=== PATIENT | female | born 1965 | race African-American/Black ===

== ENCOUNTER 2018-02-25 11:54 | Emergency (ER) | payer SELFPAY ==
[~2018-02-25] VITALS: Ht 162.6 cm; Wt 83.0 kg
[2018-02-25 12:03] VITALS: BP 151/80
--- NOTE | 2018-02-25 12:20 | PHYS DOC ---
Past Medical History Past Medical History: Arthritis, COPD, Hypertension Past Surgical History: Hysterectomy Additional Past Surgical Histo: hernia x 2, addenoidectomy Alcohol Use: Occasionally Drug Use: None Adult General Chief Complaint Chief Complaint: COUGH HPI HPI Patient is a 52 year old female who presents with copd flare. Patient is known to have COPD. She continues to use tobacco. Today, she complains of a 5-7 day history of productive cough with yellow sputum. She has had some worsening shortness of breath over the same time. No chest pain. Patient states she has previously had similar symptoms when she was diagnosed with influenza and subsequently pneumonia. No nausea or vomiting. The cough does keep her awake at night. No abdominal pain. Review of Systems Review of Systems Constitutional: Denies fever but + chills Eyes: Denies change in visual acuity HENT: Denies nasal congestion or sore throat Respiratory: cough and dyspnea as above Cardiovascular: No additional information GI: Denies abdominal pain : Denies dysuria Musculoskeletal: Denies back pain Integument: Denies rash Neurologic: Denies headache All other systems were reviewed and found to be within normal limits, except as documented in this note. Current Medications Current Medications Current Medications Medications (Trade) Dose Ordered Sig/Fifi Start Time Stop Time Status Last Admin Dose Admin Acetaminophen/ Hydrocodone Bitart (Lortab 5/325) 2 tab 1X ONCE 02/25/18 12:30 02/25/18 12:31 DC 02/25/18 12:23 2 TAB Albuterol/ Ipratropium (Duoneb) 3 ml 1X ONCE 02/25/18 12:30 02/25/18 12:31 DC 02/25/18 12:35 3 ML Azithromycin (Zithromax) 500 mg 1X ONCE 02/25/18 12:30 02/25/18 12:31 DC 02/25/18 12:26 500 MG Prednisone (Prednisone) 50 mg 1X ONCE 02/25/18 12:30 02/25/18 12:31 DC 02/25/18 12:22 50 MG Allergies Allergies Allergies Coded Allergies Type Severity Reaction Last Updated Verified NSAIDS (Non-Steroidal Anti-Inflamma Allergy Mild stomach ache 02/25/18 Yes egg Allergy Mild vomiting 02/25/18 Yes Physical Exam Physical Exam Constitutional: Well developed, well nourished, no acute distress, non-toxic appearance HENT: Normocephalic, atraumatic, bilateral external ears normal, oropharynx moist Eyes: PERRLA Neck: Normal range of motion, no tenderness Cardiovascular:Heart rate regular rhythm, no murmur Lungs & Thorax: faint wheezes bilaterally with prolonged exp phase and diminished air movt Skin: Warm, dry, no erythema Extremities: No edema Neurologic: Alert and oriented X 3 Psychologic: Affect normal Current Patient Data Vital Signs Vital Signs Date Time Temp Pulse Resp B/P (MAP) Pulse Ox O2 Delivery O2 Flow Rate FiO2 02/25/18 12:38 Room Air 02/25/18 12:23 16 96 02/25/18 12:03 97.8 84 151/80 (103) 97.8 EKG EKG [] Radiology/Procedures Radiology/Procedures [] Course & Med Decision Making Course & Med Decision Making Pertinent Labs and Imaging studies reviewed. (See chart for details) 12:15: Patient is seen and examined. She is clinically having a COPD flare. Lung sounds as documented above. Orders are placed for prednisone, and [place] for pain, azithromycin, and breathing treatment. Patient is seen in the ER for COPD symptoms and URI symptoms. She was initially wheezing. She had a breathing treatment in the ER which did improve her wheezes. She feels subjectively better. Patient will be discharged home with a short course of prednisone, azithromycin, and some albuterol nebulized solution treatments. She is advised to take her albuterol every 3-4 hours while awake over the next 48 hours. Patient is accompanied by family members who are driving her home. All of her questions are answered prior to discharge home. Dragon Disclaimer Dragon Disclaimer This electronic medical record was generated, in whole or in part, using a voice recognition dictation system. Departure Departure Referrals: NO PCP (PCP) Scripts Prednisone (PREDNISONE) 50 Mg Tablet 1 TAB PO DAILY, #5 TAB Prov: SHEY PARISH DO 02/25/18 Hydrocodone/Apap 5-325 (NORCO 5-325 TABLET) 1 Each Tablet 1-2 EACH PO PRN Q6HRS PRN for severe pain, #20 as needed for pain Prov: SHEY PARISH DO 02/25/18 Azithromycin (AZITHROMYCIN TABLET) 250 Mg Tablet 250 MG PO DAILY for ANTI-BIOTIC for 4 Days, #4 TAB 0 Refills Prov: SHEY PARISH DO 02/25/18 Albuterol Sulfate (ALBUTEROL SULFATE NEB SOLN) 2.5 Mg/3 Ml Vial.neb 1 VIAL NEB PRN Q4HRS, #50 VIAL Prov: SHEY PARISH DO 02/25/18 SHEY PARISH DO Feb 25, 2018 12:20
[2018-02-25] MEDS ORDERED: predniSONE 10 MG TABLET PO ONE (12:30)
[2018-02-25] MEDS ORDERED: AZITHROMYCIN 250 MG TABLET. PO ONE (12:30)
[2018-02-25] MEDS ORDERED: IPRATRPIUM/ALBUTEROL 0.5/2.5MG 3 ML NEBU. NEB ONE (12:30)
[2018-02-25] MEDS ORDERED: HYDROcodone/APAP 5/325MG 1 TAB TABLET PO ONE (12:30)
[2018-02-25] MEDS ORDERED: HYDR-971 PO (13:29)
[2018-02-25] MEDS ORDERED: AZIT250T6 PO (13:29)
[2018-02-25] MEDS ORDERED: ALBU2.5V5 NEB (13:29)
[2018-02-25] MEDS ORDERED: PRED50TA PO (13:29)
== END 2018-02-25 13:36 | disposition home or self-care (01) ==
LOC: ER 11:54
DX: J44.1 Chronic obstructive pulmonary disease with (acute) exacerbation (principal); M19.90 Unspecified osteoarthritis, unspecified site; I10 Essential (primary) hypertension; Z72.0 Tobacco use; Z90.710 Acquired absence of both cervix and uterus; Z88.8 Allergy status to other drugs, medicaments and biological substances; Z91.012 Allergy to eggs
CPT/HCPCS: 94640; 99284; J7512; J7620; Q0144

== ENCOUNTER 2018-03-31 18:24 | Emergency (ER) | payer SELFPAY ==
[~2018-03-31] VITALS: Ht 162.6 cm; Wt 83.0 kg
[~2018-03-31 18:24] MED LIST: ALBU2.5V5 NEB; AZIT250T6 PO; HYDR-3164 PO; OXYC1TAB15 PO; PRED50TA PO; TAMS0.4C97 PO
[2018-03-31 19:12] LABS: BILIRUBIN,URINE NEGATIVE (NEG); CLARITY,URINE CLEAR; COLOR,URINE YELLOW; NITRITE,URINE NEGATIVE (NEG); PH,URINE 5.5; PROTEIN,URINE NEGATIVE (NEG-TRACE); UROBILINOGEN,URINE 0.2 mg/dL (0.2 mg/dL)
--- NOTE | 2018-03-31 19:14 | PHYS DOC ---
Past Medical History Past Medical History: Arthritis, COPD, Hypertension, Kidney Stone, Other Additional Past Medical Histor: SPINAL STENOSIS Past Surgical History: Hysterectomy Additional Past Surgical Histo: hernia x 2, addenoidectomy Additional Information: 0.5 PPD Alcohol Use: Occasionally Drug Use: None Adult General Chief Complaint Chief Complaint: FLANK PAIN [facility] Patient is a 52 year old female who presents for evaluation of left flank pain which radiates into her left groin. The patient was seen in the ED on 03/23/18 for flank pain and was diagnosed with a 2mm ureteral stone in the left distal ureter. She was discharged to home with Flomax and Percocet. Additionally, she was instructed to follow up with urology, but due to some insurance issues was unable to set an appointment with them. The patient reports she has been monitoring her urine but has not yet passed the stone. She reports intermittent pain since her previous visit in the ED, with persistent pain over the past 2 days which seems to be worsening and prompted her current ED visit. She has finished her Percocet and has attempted Tylenol without much relief. She reports an allergy to NSAIDs as they cause her stomach problems. She endorses recent foul smelling urine, dysuria, and nausea, but denies fevers, chills, vomiting, hematuria and pyuria. No other Sx or complaints at this time Review of Systems Review of Systems Constitutional: Denies fever or chills [] Eyes: Denies change in visual acuity, redness, or eye pain [] HENT: Denies nasal congestion or sore throat [] Respiratory: Denies cough or shortness of breath [] Cardiovascular: No additional information not addressed in [facility] [] GI: + nausea, Denies abdominal pain, vomiting, bloody stools or diarrhea [] : + foul smelling urine and dysuria. + flank pain. + left suprapubic pain. Denies hematuria and pyuria Musculoskeletal: Denies back pain or joint pain [] Integument: Denies rash or skin lesions [] Neurologic: Denies headache, focal weakness or sensory changes [] Endocrine: Denies polyuria or polydipsia [] All other systems were reviewed and found to be within normal limits, except as documented in this note. Current Medications Current Medications Current Medications Medications (Trade) Dose Ordered Sig/Fifi Start Time Stop Time Status Last Admin Dose Admin Morphine Sulfate (Morphine Sulfate) 4 mg 1X ONCE 03/31/18 19:15 03/31/18 19:16 DC 03/31/18 19:40 4 MG Ondansetron HCl (Zofran) 4 mg 1X ONCE 03/31/18 19:15 03/31/18 19:16 DC 03/31/18 19:40 4 MG Allergies Allergies Allergies Coded Allergies Type Severity Reaction Last Updated Verified NSAIDS (Non-Steroidal Anti-Inflamma Allergy Mild stomach ache 02/25/18 Yes egg Allergy Mild vomiting 02/25/18 Yes Physical Exam Physical Exam Constitutional: Well developed, well nourished, no acute distress, non-toxic appearance. [] HENT: Normocephalic, atraumatic, bilateral external ears normal, oropharynx moist, no oral exudates, nose normal. [] Eyes: PERRLA, EOMI, conjunctiva normal, no discharge. [] Neck: Normal range of motion, no tenderness, supple, no stridor. [] Cardiovascular:Heart rate regular rhythm, no murmur [] Lungs & Thorax: Bilateral breath sounds clear to auscultation [] Abdomen: Bowel sounds normal, soft, no tenderness, no masses, no pulsatile masses. [] Skin: Warm, dry, no erythema, no rash. [] Back: The patient has CVA tenderness on the left with a positive Loyds punch. Extremities: No tenderness, no cyanosis, no clubbing, ROM intact, no edema. [] Neurologic: Alert and oriented X 3, normal motor function, normal sensory function, no focal deficits noted. [] Psychologic: Affect normal, judgement normal, mood normal. [] Current Patient Data Vital Signs Vital Signs Date Time Temp Pulse Resp B/P (MAP) Pulse Ox O2 Delivery O2 Flow Rate FiO2 03/31/18 20:00 86 147/85 (105) 94 Room Air 03/31/18 19:40 17 03/31/18 18:38 98.7 98.7 Lab Values Laboratory Tests Test 03/31/18 18:30 03/31/18 19:30 Urine Collection Type Void Urine Color Yellow Urine Clarity Clear Urine pH 5.5 Urine Specific [place] 1.025 Urine Protein Negative mg/dL (NEG-TRACE) Urine Glucose (UA) Negative mg/dL (NEG) Urine Ketones (Stick) Negative mg/dL (NEG) Urine Blood Negative (NEG) Urine Nitrite Negative (NEG) Urine Bilirubin Negative (NEG) Urine Urobilinogen Dipstick 0.2 mg/dL (0.2 mg/dL) Urine Leukocyte Esterase Negative (NEG) Urine RBC 0 /HPF (0-2) Urine WBC 0 /HPF (0-4) Urine Squamous Epithelial Cells Occ /LPF Urine Bacteria 0 /HPF (0-FEW) White Blood Count 9.3 x10^3/uL (4.0-11.0) Red Blood Count 4.21 x10^6/uL (3.50-5.40) Hemoglobin 12.8 g/dL (12.0-15.5) Hematocrit 38.9 % (36.0-47.0) Mean Corpuscular Volume 92 fL (79-100) Mean Corpuscular Hemoglobin 31 pg (25-35) Mean Corpuscular Hemoglobin Concent 33 g/dL (31-37) Red Cell Distribution Width 13.2 % (11.5-14.5) Platelet Count 310 x10^3/uL (140-400) Neutrophils (%) (Auto) 49 % (31-73) Lymphocytes (%) (Auto) 44 % (24-48) Monocytes (%) (Auto) 5 % (0-9) Eosinophils (%) (Auto) 2 % (0-3) Basophils (%) (Auto) 1 % (0-3) Neutrophils # (Auto) 4.5 x10^3uL (1.8-7.7) Lymphocytes # (Auto) 4.1 x10^3/uL (1.0-4.8) Monocytes # (Auto) 0.4 x10^3/uL (0.0-1.1) Eosinophils # (Auto) 0.2 x10^3/uL (0.0-0.7) Basophils # (Auto) 0.1 x10^3/uL (0.0-0.2) Sodium Level 145 mmol/L (136-145) Potassium Level 4.0 mmol/L (3.5-5.1) Chloride Level 107 mmol/L (98-107) Carbon Dioxide Level 29 mmol/L (21-32) Anion Gap 9 (6-14) Blood Urea Nitrogen 17 mg/dL (7-20) Creatinine 1.1 mg/dL (0.6-1.0) H Estimated GFR (Cockcroft-Gault) 62.6 BUN/Creatinine Ratio 15 (6-20) Glucose Level 96 mg/dL (70-99) Calcium Level 9.1 mg/dL (8.5-10.1) Total Bilirubin 0.2 mg/dL (0.2-1.0) Aspartate Amino Transferase (AST) 12 U/L (15-37) L Alanine Aminotransferase (ALT) 20 U/L (14-59) Alkaline Phosphatase 71 U/L (46-116) Total Protein 7.5 g/dL (6.4-8.2) Albumin 3.8 g/dL (3.4-5.0) Albumin/Globulin Ratio 1.0 (1.0-1.7) Laboratory Tests 03/31/18 19:30 Laboratory Tests 03/31/18 19:30 EKG EKG [] Radiology/Procedures Radiology/Procedures [] Course & Med Decision Making Course & Med Decision Making Pertinent Labs and Imaging studies reviewed. (See chart for details) Assessment: 52 y/o female presents for evaluation of Left flank pain 1. Ureterolithiasis 2. UTI 3. Low suspicion pyelonephritis Plan: Labs pain and nausea control UA. Urinalysis was negative labs look good patient felt better after dose of morphine perception for refill of pain medication was given and it sounds like patient is getting follow-up at urology hopefully this week she is working on some insurance issues. Return precautions were discussed she did only have a 2 mm stones Y think conservative management is very reasonable. Dragon Disclaimer Dragon Disclaimer This electronic medical record was generated, in whole or in part, using a voice recognition dictation system. Departure Departure Impression: Primary Impression: Kidney stone Disposition: 01 HOME, SELF-CARE Condition: STABLE Referrals: NO PCP (PCP) Scripts Hydrocodone/Apap 5-325 (NORCO 5-325 TABLET) 1 Each Tablet 1-2 EACH PO PRN Q6HRS PRN for NAUSEA/VOMITING, #15 as needed for pain Prov: YULI LOMBARDI MD 03/31/18 YULI LOMBARDI MD Mar 31, 2018 19:14
[2018-03-31] MEDS ORDERED: ONDANSETRON PF 4 MG/2 ML VIAL. IV ONE (19:15)
[2018-03-31] MEDS ORDERED: MORPHINE SULFATE 4 MG/ML VIAL. IV ONE (19:15)
[2018-03-31 19:34] LABS: BACTERIA,URINE 0 /HPF (0-FEW); RBC,URINE 0 /HPF (0-2); SQUAMOUS EPITHELIAL CELL,UR OCC /LPF; WBC,URINE 0 /HPF (0-4)
[2018-03-31 19:45] LABS: BASO # 0.1 x10^3/uL (0.0-0.2); BASO % 1 % (0-3); EOS # 0.2 x10^3/uL (0.0-0.7); EOS % 2 % (0-3); HEMATOCRIT 38.9 % (36.0-47.0); HEMOGLOBIN 12.8 g/dL (12.0-15.5); LYMPH # 4.1 x10^3/uL (1.0-4.8); LYMPH % 44 % (24-48); MEAN CORPUSCULAR HEMOGLOBIN 31 pg (25-35); MEAN CORPUSCULAR HGB CONC 33 g/dL (31-37); MEAN CORPUSCULAR VOLUME 92 fL (79-100); MONO # 0.4 x10^3/uL (0.0-1.1); MONO % 5 % (0-9); NEUT # 4.5 x10^3uL (1.8-7.7); NEUT % 49 % (31-73); PLATELET COUNT 310 x10^3/uL (140-400); RED BLOOD COUNT 4.21 x10^6/uL (3.50-5.40); RED CELL DISTRIBUTION WIDTH 13.2 % (11.5-14.5); WHITE BLOOD COUNT 9.3 x10^3/uL (4.0-11.0)
[2018-03-31 20:00] VITALS: BP 147/85
[2018-03-31 20:00] LABS: CALCIUM 9.1 mg/dL (8.5-10.1); CREATININE 1.1 mg/dL (0.6-1.0); GFR 62.6
[2018-03-31 20:07] LABS: ALBUMIN 3.8 g/dL (3.4-5.0); TOTAL BILIRUBIN 0.2 mg/dL (0.2-1.0); TOTAL PROTEIN 7.5 g/dL (6.4-8.2)
[2018-03-31] MEDS ORDERED: HYDR-3164 PO (20:15)
== END 2018-03-31 20:50 | disposition home or self-care (01) ==
LOC: ER 18:24
DX: N20.2 Calculus of kidney with calculus of ureter (principal); M19.90 Unspecified osteoarthritis, unspecified site; I10 Essential (primary) hypertension; J44.9 Chronic obstructive pulmonary disease, unspecified; F17.200 Nicotine dependence, unspecified, uncomplicated; Z90.710 Acquired absence of both cervix and uterus; Z88.8 Allergy status to other drugs, medicaments and biological substances; Z91.012 Allergy to eggs
CPT/HCPCS: 36415; 80053; 81001; 85025; 96374; 96375; 99283; J2270; J2405

== ENCOUNTER 2018-04-26 12:42 | Emergency (ER) | payer SELFPAY ==
[~2018-04-26] VITALS: Ht 162.6 cm; Wt 83.0 kg
[2018-04-26] MEDS ORDERED: fentaNYL PF VIAL 100 MCG/2 ML VIAL IV ONE (13:30)
[2018-04-26 13:37] LABS: BASO % 1 % (0-3); EOS # 0.2 x10^3/uL (0.0-0.7); EOS % 3 % (0-3); HEMATOCRIT 38.8 % (36.0-47.0); HEMOGLOBIN 13.2 g/dL (12.0-15.5); LYMPH # 2.8 x10^3/uL (1.0-4.8); LYMPH % 46 % (24-48); MEAN CORPUSCULAR HEMOGLOBIN 31 pg (25-35); MEAN CORPUSCULAR HGB CONC 34 g/dL (31-37); MEAN CORPUSCULAR VOLUME 91 fL (79-100); MONO # 0.3 x10^3/uL (0.0-1.1); MONO % 5 % (0-9); NEUT # 2.7 x10^3uL (1.8-7.7); NEUT % 45 % (31-73); PLATELET COUNT 342 x10^3/uL (140-400); RED BLOOD COUNT 4.25 x10^6/uL (3.50-5.40); RED CELL DISTRIBUTION WIDTH 12.7 % (11.5-14.5); WHITE BLOOD COUNT 6.1 x10^3/uL (4.0-11.0)
--- NOTE | 2018-04-26 13:38 | PHYS DOC ---
Past Medical History Past Medical History: Arthritis, COPD, Hypertension, Kidney Stone, Other Additional Past Medical Histor: SPINAL STENOSIS Past Surgical History: Hysterectomy Additional Past Surgical Histo: hernia x 2, addenoidectomy Alcohol Use: Occasionally Drug Use: None Adult General Chief Complaint Chief Complaint: FLANK PAIN [facility] HPI Patient is a 52 year old female presents with 6 days of left flank pain. She was seen here for a kidney stone April 01 2 mm stone the pain went away after a couple of days minutes come back it is quite severe now at this time it is described as dull associated with dysuria. in addition it radiates to the leg and numbness to the left foot as well. Review of Systems Review of Systems Constitutional: Denies fever or chills []does get hot flashes she thinks it's menopause Eyes: Denies change in visual acuity, redness, or eye pain [] HENT: Denies nasal congestion or sore throat [] Respiratory: Denies cough or shortness of breath [] Cardiovascular: No additional information not addressed in HPI [] GI: Left-sided abdominal pain noted : Dysuria noted Musculoskeletal: All other systems were reviewed and found to be within normal limits, except as documented in this note. Current Medications Current Medications Current Medications Medications (Trade) Dose Ordered Sig/Fifi Start Time Stop Time Status Last Admin Dose Admin Fentanyl Citrate (Fentanyl 2ml Vial) 50 mcg 1X ONCE 04/26/18 13:30 04/26/18 13:31 DC 04/26/18 13:32 50 MCG Info (CONTRAST GIVEN -- Rx MONITORING) 1 each PRN DAILY PRN 04/26/18 14:30 04/26/18 17:27 DC Iohexol (Omnipaque 300 Mg/ml) 75 ml 1X ONCE 04/26/18 14:30 04/26/18 14:31 DC 04/26/18 14:54 75 ML Morphine Sulfate (Morphine Sulfate) 4 mg 1X ONCE 04/26/18 14:45 04/26/18 14:46 DC 04/26/18 15:02 4 MG Allergies Allergies Allergies Coded Allergies Type Severity Reaction Last Updated Verified NSAIDS (Non-Steroidal Anti-Inflamma Allergy Mild stomach ache 02/25/18 Yes egg Allergy Mild vomiting 02/25/18 Yes Physical Exam Physical Exam Constitutional: Well developed, well nourished, no acute distress, non-toxic appearance. [] HENT: Normocephalic, atraumatic, bilateral external ears normal, oropharynx moist, no oral exudates, nose normal. [] Eyes: PERRLA, EOMI, conjunctiva normal, no discharge. [] Neck: Normal range of motion, no tenderness, supple, no stridor. [] Pulmonary: Normal respiratory effort no increased work of breathing no obvious chest wall trauma Abdomen: Bowel sounds normal, soft, left lower quadrant tenderness, no masses, no pulsatile masses. [] Skin: Warm, dry, no erythema, no rash. [] Back: No tenderness, left CVA tenderness. [] Extremities: No tenderness, no cyanosis, no clubbing, ROM intact, no edema. [] Neurologic: Alert and oriented X 3, normal motor function, normal sensory function, no focal deficits noted. [] Psychologic: Affect normal, judgement normal, mood normal. [] Current Patient Data Vital Signs Vital Signs Date Time Temp Pulse Resp B/P (MAP) Pulse Ox O2 Delivery O2 Flow Rate FiO2 04/26/18 17:05 71 18 150/87 (108) 97 Room Air 04/26/18 13:05 98.6 98.6 Lab Values Laboratory Tests Test 04/26/18 13:10 04/26/18 13:25 Urine Color Yellow Urine Clarity Clear Urine pH 5.5 Urine Specific [place] 1.015 Urine Protein Negative mg/dL (NEG-TRACE) Urine Glucose (UA) Negative mg/dL (NEG) Urine Ketones (Stick) Negative mg/dL (NEG) Urine Blood Negative (NEG) Urine Nitrite Negative (NEG) Urine Bilirubin Negative (NEG) Urine Urobilinogen Dipstick 0.2 mg/dL (0.2 mg/dL) Urine Leukocyte Esterase Negative (NEG) Urine RBC 0 /HPF (0-2) Urine WBC 1-4 /HPF (0-4) Urine Squamous Epithelial Cells Occ /LPF Urine Bacteria Few /HPF (0-FEW) Urine Mucus Slight /LPF White Blood Count 6.1 x10^3/uL (4.0-11.0) Red Blood Count 4.25 x10^6/uL (3.50-5.40) Hemoglobin 13.2 g/dL (12.0-15.5) Hematocrit 38.8 % (36.0-47.0) Mean Corpuscular Volume 91 fL (79-100) Mean Corpuscular Hemoglobin 31 pg (25-35) Mean Corpuscular Hemoglobin Concent 34 g/dL (31-37) Red Cell Distribution Width 12.7 % (11.5-14.5) Platelet Count 342 x10^3/uL (140-400) Neutrophils (%) (Auto) 45 % (31-73) Lymphocytes (%) (Auto) 46 % (24-48) Monocytes (%) (Auto) 5 % (0-9) Eosinophils (%) (Auto) 3 % (0-3) Basophils (%) (Auto) 1 % (0-3) Neutrophils # (Auto) 2.7 x10^3uL (1.8-7.7) Lymphocytes # (Auto) 2.8 x10^3/uL (1.0-4.8) Monocytes # (Auto) 0.3 x10^3/uL (0.0-1.1) Eosinophils # (Auto) 0.2 x10^3/uL (0.0-0.7) Basophils # (Auto) 0.0 x10^3/uL (0.0-0.2) Sodium Level 139 mmol/L (136-145) Potassium Level 4.0 mmol/L (3.5-5.1) Chloride Level 102 mmol/L (98-107) Carbon Dioxide Level 27 mmol/L (21-32) Anion Gap 10 (6-14) Blood Urea Nitrogen 11 mg/dL (7-20) Creatinine 0.9 mg/dL (0.6-1.0) Estimated GFR (Cockcroft-Gault) 79.0 BUN/Creatinine Ratio 12 (6-20) Glucose Level 95 mg/dL (70-99) Calcium Level 9.8 mg/dL (8.5-10.1) Total Bilirubin 0.5 mg/dL (0.2-1.0) Aspartate Amino Transferase (AST) 10 U/L (15-37) L Alanine Aminotransferase (ALT) 24 U/L (14-59) Alkaline Phosphatase 72 U/L (46-116) Total Protein 7.9 g/dL (6.4-8.2) Albumin 3.7 g/dL (3.4-5.0) Albumin/Globulin Ratio 0.9 (1.0-1.7) L Laboratory Tests 04/26/18 13:25 Laboratory Tests 04/26/18 13:25 EKG EKG [] Radiology/Procedures Radiology/Procedures [] Impressions: IMPRESSION: No acute intra-abdominal findings. Electronically signed by: Luis Dixon MD (04/26/2018 3:06 PM) [facility] DICTATED and SIGNED BY: LUIS DIXON MD DATE: 04/26/18 1455 Course & Med Decision Making Course & Med Decision Making Pertinent Labs and Imaging studies reviewed. (See chart for details) flank pain check u/a known 2 mm uvj stone this month Urinalysis is essentially negative the patient is having dysuria and addition she is also having left back pain with some numbness in her left foot. No saddle anesthesia she tells me. Physical examination showed strength intact 5 out of 5 throughout. Patient probably has discogenic back pain possibly UTI the stone is gone patient is not septic perception for Keflex pain meds were given in the emergency room. Dragon Disclaimer Dragon Disclaimer This electronic medical record was generated, in whole or in part, using a voice recognition dictation system. Departure Departure Impression: Primary Impression: Low back pain Disposition: HOME, SELF-CARE Condition: STABLE Referrals: NO PCP (PCP) Scripts Oxycodone/Apap 5-325 (PERCOCET 5-325 MG TABLET ) 1 Each Tablet 1-2 EACH PO PRN TID PRN for PAIN, #25 TAB pain Prov: YULI LOMBARDI MD 04/26/18 Cephalexin (CEPHALEXIN) 500 Mg Capsule 1 CAP PO QID, #40 CAP Prov: YULI LOMBARDI MD 04/26/18 YULI LOMBARDI MD Apr 26, 2018 13:38
[2018-04-26 13:39] LABS: BILIRUBIN,URINE NEGATIVE (NEG); CLARITY,URINE CLEAR; COLOR,URINE YELLOW; NITRITE,URINE NEGATIVE (NEG); PH,URINE 5.5; PROTEIN,URINE NEGATIVE (NEG-TRACE); UROBILINOGEN,URINE 0.2 mg/dL (0.2 mg/dL)
[2018-04-26 13:53] LABS: CALCIUM 9.8 mg/dL (8.5-10.1); CREATININE 0.9 mg/dL (0.6-1.0)
[2018-04-26 13:59] LABS: ALBUMIN 3.7 g/dL (3.4-5.0); ALBUMIN/GLOBULIN RATIO 0.9 (1.0-1.7); TOTAL BILIRUBIN 0.5 mg/dL (0.2-1.0); TOTAL PROTEIN 7.9 g/dL (6.4-8.2)
[2018-04-26 14:04] LABS: BACTERIA,URINE FEW /HPF (0-FEW); RBC,URINE 0 /HPF (0-2); SQUAMOUS EPITHELIAL CELL,UR OCC /LPF
[2018-04-26] MEDS ORDERED: CONTRAST GIVEN. MC PRN (14:30)
[2018-04-26] MEDS ORDERED: IOHEXOL 300 MG/ML 100ML VIAL. IV ONE (14:30)
[2018-04-26] MEDS ORDERED: MORPHINE SULFATE 4 MG/ML VIAL. IV ONE (14:45)
--- NOTE | 2018-04-26 16:17 | RAD ---
Examination: CT of the abdomen pelvis with IV contrast HISTORY: History of left flank pain COMPARISON: 03/23/2018 TECHNIQUE: Axial CT images of the abdomen pelvis were performed with IV contrast. Coronal and sagittal reformats are performed Exposure: One or more of the following individualized dose reduction techniques were utilized for this examination: 1. Automated exposure control 2. Adjustment of the mA and/or kV according to patient size 3. Use of iterative reconstruction technique FINDINGS: The bibasilar lungs are clear No evidence of free air identified in the abdomen The visualized liver, spleen, adrenals grossly appears unremarkable The gallbladder is mildly distended The stomach is mildly distended The visualized pancreas grossly appears unremarkable The small bowel is nondilated The appendix is normal. Feces and gas noted in the ascending colon. The transverse colon, descending colon are collapsed. The bilateral kidneys enhance symmetrically. The caliber of the aorta grossly appears unremarkable No significant free fluid identified in the pelvis Moderate degenerative changes L5-S1 vertebral level with the disc protrusion. IMPRESSION: No acute intra-abdominal findings. Electronically signed by: Luis Dixon MD (04/26/2018 3:06 PM) [place] [id number]
[2018-04-26] MEDS ORDERED: OXYC1TAB15 PO (16:44)
[2018-04-26] MEDS ORDERED: CEPH500C PO (16:44)
[2018-04-26 17:05] VITALS: BP 150/87
== END 2018-04-26 17:22 | disposition home or self-care (01) ==
LOC: ER 12:42
DX: M54.5 Low back pain (principal); J44.9 Chronic obstructive pulmonary disease, unspecified; I10 Essential (primary) hypertension; M19.90 Unspecified osteoarthritis, unspecified site; Z87.442 Personal history of urinary calculi; Z90.710 Acquired absence of both cervix and uterus
CPT/HCPCS: 36415; 74177; 80053; 81001; 85025; 96374; 96375; 99284; J2270; J3010; Q9967

== ENCOUNTER 2018-08-15 11:13 | Inpatient (IN) | payer OTHER ==
[~2018-08-15] VITALS: Ht 170.2 cm; Wt 80.9 kg
[~2018-08-15 11:13] MED LIST changes: +ALBU2.5V8 INH; +BUDE180A IH; +CEPH500C PO; +LIDO700A39 TD; +OXYC1TAB22 PO
[2018-08-15] MEDS ORDERED: ASPIRIN 325 MG TABLET PO ONE (11:30)
[2018-08-15] MEDS ORDERED: FAMOTIDINE 20 MG/2 ML VIAL IVP ONE (11:30)
[2018-08-15] MEDS ORDERED: ONDANSETRON PF 4 MG/2 ML VIAL. IV ONE (11:30)
--- NOTE | 2018-08-15 11:38 | EKG ---
[facility] [address] [place] [address] Test Date: 2018-08-15 Test Time: 11:22:27 Pat Name: TRISTEN SPARKS Department: Room: Gender: F Load Out Person: [place] : 1965 Requested By: ANNA FARRIS Order Number: [id number] Reading MD: Spenser Torres Measurements Intervals [place] Rate: 81 P: 51 NE: 142 QRS: 65 QRSD: 80 T: 59 QT: 364 QTc: 423 Interpretive Statements SINUS RHYTHM Electronically Signed On 08-20-2018 13:15:49 CDT by Spenser Torres
--- NOTE | 2018-08-15 11:48 | PHYS DOC ---
Past Medical History Past Medical History: Arthritis, COPD, High Cholesterol, Hypertension, Kidney Stone, Other Additional Past Medical Histor: SPINAL STENOSIS (ANNA FARRIS APRN) Past Surgical History: Hysterectomy Additional Past Surgical Histo: hernia x 2, addenoidectomy (ANNA FARRIS APRN) Alcohol Use: Occasionally Drug Use: None (ANNA FARRIS APRN) Adult General Chief Complaint Chief Complaint: CHEST PAIN HPI HPI Patient is a 52 year old female with history of COPD, hypertension, high cholesterol, current smoker, who presents to the ED today complaining of 10 out of 10 left-sided chest pain radiating to the left jaw that began 2 days ago. Patient describes the pain as sharp and constant. She states the pain is worsened by certain movements. Denies anything specifically alleviating the pain. She states she gotten diaphoretic with the pain and has had nausea with no vomiting with this pain. She states she went to the doctor's office today, was seen by a nurse practitioner and sent to the ED. patient is also complaining of 10 out of 10 chronic low back pain, no known injury, denies any pain radiating to bilateral lower extremities, denies any loss of bowel bladder function. (ANNA FARRIS APRN) Review of Systems Review of Systems Constitutional: Denies fever or chills [] Eyes: Denies change in visual acuity, redness, or eye pain [] HENT: Denies nasal congestion or sore throat [] Respiratory: Denies cough or shortness of breath [] Cardiovascular: Reports left-sided chest pain GI: Reports nausea. Denies abdominal pain, vomiting, bloody stools or diarrhea [ ] : Denies dysuria or hematuria [] Musculoskeletal: Reports chronic low back pain Integument: Denies rash or skin lesions [] Neurologic: Denies headache, focal weakness or sensory changes [] All other systems were reviewed and found to be within normal limits, except as documented in this note. (ANNA FARRIS APRN) Current Medications Current Medications Current Medications Medications (Trade) Dose Ordered Sig/Fifi Start Time Stop Time Status Last Admin Dose Admin Aspirin (Melisa Aspirin) 325 mg 1X ONCE 08/15/18 11:30 08/15/18 11:38 DC 08/15/18 12:10 325 MG Famotidine (Pepcid Vial) 20 mg 1X ONCE 08/15/18 11:30 08/15/18 11:38 DC 08/15/18 11:57 20 MG Morphine Sulfate (Morphine Sulfate) 4 mg PRN Q15MIN PRN 08/15/18 11:30 08/15/18 19:57 DC 08/15/18 15:59 4 MG Nitroglycerin (Nitrostat) 0.4 mg PRN Q5MIN PRN 08/15/18 11:30 08/16/18 11:29 08/15/18 12:09 0.4 MG Ondansetron HCl (Zofran) 4 mg 1X ONCE 08/15/18 11:30 08/15/18 11:38 DC 08/15/18 11:55 4 MG (MAHESH WOOTEN DO) Allergies Allergies Allergies Coded Allergies Type Severity Reaction Last Updated Verified NSAIDS (Non-Steroidal Anti-Inflamma Allergy Mild stomach ache 02/25/18 Yes egg Allergy Mild vomiting 02/25/18 Yes (MAHESH WOOTEN DO) Physical Exam Physical Exam Constitutional: Well developed, well nourished, no acute distress, non-toxic appearance. [] HENT: Normocephalic, atraumatic, bilateral external ears normal, oropharynx moist, no oral exudates, nose normal. Dental caries noted. Eyes: PERRLA, EOMI, conjunctiva normal, no discharge. [] Neck: Normal range of motion, no tenderness, supple, no stridor. [] Cardiovascular:Heart rate regular rhythm, no murmur [] Lungs & Thorax: Bilateral breath sounds clear to auscultation [] Abdomen: Bowel sounds normal, soft, no tenderness, no masses, no pulsatile masses. [] Skin: Warm, dry, no erythema, no rash. [] Back: No tenderness, no CVA tenderness. [] Extremities: No tenderness, no cyanosis, no clubbing, ROM intact, no edema. [] Neurologic: Alert and oriented X 3, normal motor function, normal sensory function, no focal deficits noted. [] Psychologic: Affect normal, judgement normal, mood normal. [] (ANNA FARRIS APRN) Current Patient Data Vital Signs Vital Signs Date Time Temp Pulse Resp B/P (MAP) Pulse Ox O2 Delivery O2 Flow Rate FiO2 08/15/18 12:58 82 18 127/81 (96) 97 Nasal Cannula 2.0 08/15/18 11:22 98.0 98.0 (MAHESH WOOTEN DO) Lab Values Laboratory Tests Test 08/15/18 11:45 08/15/18 11:50 White Blood Count 6.6 x10^3/uL (4.0-11.0) Red Blood Count 4.54 x10^6/uL (3.50-5.40) Hemoglobin 13.3 g/dL (12.0-15.5) Hematocrit 41.6 % (36.0-47.0) Mean Corpuscular Volume 92 fL (79-100) Mean Corpuscular Hemoglobin 29 pg (25-35) Mean Corpuscular Hemoglobin Concent 32 g/dL (31-37) Red Cell Distribution Width 14.5 % (11.5-14.5) Platelet Count 329 x10^3/uL (140-400) Neutrophils (%) (Auto) 69 % (31-73) Lymphocytes (%) (Auto) 26 % (24-48) Monocytes (%) (Auto) 4 % (0-9) Eosinophils (%) (Auto) 1 % (0-3) Basophils (%) (Auto) 1 % (0-3) Neutrophils # (Auto) 4.6 x10^3uL (1.8-7.7) Lymphocytes # (Auto) 1.7 x10^3/uL (1.0-4.8) Monocytes # (Auto) 0.3 x10^3/uL (0.0-1.1) Eosinophils # (Auto) 0.1 x10^3/uL (0.0-0.7) Basophils # (Auto) 0.0 x10^3/uL (0.0-0.2) Prothrombin Time 13.6 SEC (11.7-14.0) Prothrombin Time INR 1.1 (0.8-1.1) Sodium Level 141 mmol/L (136-145) Potassium Level 4.4 mmol/L (3.5-5.1) Chloride Level 103 mmol/L (98-107) Carbon Dioxide Level 27 mmol/L (21-32) Anion Gap 11 (6-14) Blood Urea Nitrogen 15 mg/dL (7-20) Creatinine 0.8 mg/dL (0.6-1.0) Estimated GFR (Cockcroft-Gault) 90.4 BUN/Creatinine Ratio 19 (6-20) Glucose Level 96 mg/dL (70-99) Hemoglobin A1c 5.1 % (4.8-5.6) Calcium Level 8.8 mg/dL (8.5-10.1) Magnesium Level 1.8 mg/dL (1.8-2.4) Total Bilirubin 0.3 mg/dL (0.2-1.0) Aspartate Amino Transferase (AST) 12 U/L (15-37) L Alanine Aminotransferase (ALT) 17 U/L (14-59) Alkaline Phosphatase 64 U/L (46-116) Creatine Kinase 67 U/L (26-192) Creatine Kinase MB (Mass) 0.5 ng/mL (0.0-3.6) Creatine Kinase MB Relative Index % (0-4) Troponin I Quantitative < 0.017 ng/mL (0.000-0.055) NW-Vvo-O-Type Natriuretic Peptide 24 pg/mL (0-124) Total Protein 7.6 g/dL (6.4-8.2) Albumin 3.8 g/dL (3.4-5.0) Albumin/Globulin Ratio 1.0 (1.0-1.7) Triglycerides Level 81 mg/dL (0-150) Cholesterol Level 168 mg/dL (0-200) LDL Cholesterol, Calculated 104 mg/dL (0-100) H VLDL Cholesterol, Calculated 16 mg/dL (0-40) Non-HDL Cholesterol Calculated 120 mg/dL (0-129) HDL Cholesterol 48 mg/dL (40-60) Cholesterol/HDL Ratio 3.5 Lipase 143 U/L (73-393) Thyroid Stimulating Hormone (TSH) 0.994 uIU/mL (0.358-3.74) Urine Collection Type Unknown Urine Color Yellow Urine Clarity Clear Urine pH 5.5 Urine Specific [place] 1.025 Urine Protein Negative mg/dL (NEG-TRACE) Urine Glucose (UA) Negative mg/dL (NEG) Urine Ketones (Stick) Negative mg/dL (NEG) Urine Blood Negative (NEG) Urine Nitrite Negative (NEG) Urine Bilirubin Negative (NEG) Urine Urobilinogen Dipstick 0.2 mg/dL (0.2 mg/dL) Urine Leukocyte Esterase Negative (NEG) Urine RBC 0 /HPF (0-2) Urine WBC Rare /HPF (0-4) Urine Squamous Epithelial Cells Many /LPF Urine Bacteria 0 /HPF (0-FEW) Urine Mucus Marked /LPF Urine Opiates Screen Pos (NEG) Urine Methadone Screen Neg (NEG) Urine Barbiturates Neg (NEG) Urine Phencyclidine Screen Neg (NEG) Urine Amphetamine/Methamphetamine Neg (NEG) Urine Benzodiazepines Screen Neg (NEG) Urine Cocaine Screen Pos (NEG) Urine Cannabinoids Screen Pos (NEG) Urine Ethyl Alcohol Neg (NEG) Laboratory Tests 08/15/18 11:45 Laboratory Tests 08/15/18 11:45 (MAHESH WOOTEN DO) Lab Values Laboratory Tests Test 08/15/18 11:45 08/15/18 11:50 White Blood Count 6.6 x10^3/uL (4.0-11.0) Red Blood Count 4.54 x10^6/uL (3.50-5.40) Hemoglobin 13.3 g/dL (12.0-15.5) Hematocrit 41.6 % (36.0-47.0) Mean Corpuscular Volume 92 fL (79-100) Mean Corpuscular Hemoglobin 29 pg (25-35) Mean Corpuscular Hemoglobin Concent 32 g/dL (31-37) Red Cell Distribution Width 14.5 % (11.5-14.5) Platelet Count 329 x10^3/uL (140-400) Neutrophils (%) (Auto) 69 % (31-73) Lymphocytes (%) (Auto) 26 % (24-48) Monocytes (%) (Auto) 4 % (0-9) Eosinophils (%) (Auto) 1 % (0-3) Basophils (%) (Auto) 1 % (0-3) Neutrophils # (Auto) 4.6 x10^3uL (1.8-7.7) Lymphocytes # (Auto) 1.7 x10^3/uL (1.0-4.8) Monocytes # (Auto) 0.3 x10^3/uL (0.0-1.1) Eosinophils # (Auto) 0.1 x10^3/uL (0.0-0.7) Basophils # (Auto) 0.0 x10^3/uL (0.0-0.2) Prothrombin Time 13.6 SEC (11.7-14.0) Prothrombin Time INR 1.1 (0.8-1.1) Sodium Level 141 mmol/L (136-145) Potassium Level 4.4 mmol/L (3.5-5.1) Chloride Level 103 mmol/L (98-107) Carbon Dioxide Level 27 mmol/L (21-32) Anion Gap 11 (6-14) Blood Urea Nitrogen 15 mg/dL (7-20) Creatinine 0.8 mg/dL (0.6-1.0) Estimated GFR (Cockcroft-Gault) 90.4 BUN/Creatinine Ratio 19 (6-20) Glucose Level 96 mg/dL (70-99) Calcium Level 8.8 mg/dL (8.5-10.1) Magnesium Level 1.8 mg/dL (1.8-2.4) Total Bilirubin 0.3 mg/dL (0.2-1.0) Aspartate Amino Transferase (AST) 12 U/L (15-37) L Alanine Aminotransferase (ALT) 17 U/L (14-59) Alkaline Phosphatase 64 U/L (46-116) Creatine Kinase 67 U/L (26-192) Creatine Kinase MB (Mass) 0.5 ng/mL (0.0-3.6) Creatine Kinase MB Relative Index % (0-4) Troponin I Quantitative < 0.017 ng/mL (0.000-0.055) GO-Pew-Z-Type Natriuretic Peptide 24 pg/mL (0-124) Total Protein 7.6 g/dL (6.4-8.2) Albumin 3.8 g/dL (3.4-5.0) Albumin/Globulin Ratio 1.0 (1.0-1.7) Lipase 143 U/L (73-393) Thyroid Stimulating Hormone (TSH) 0.994 uIU/mL (0.358-3.74) Urine Collection Type Unknown Urine Color Yellow Urine Clarity Clear Urine pH 5.5 Urine Specific [place] 1.025 Urine Protein Negative mg/dL (NEG-TRACE) Urine Glucose (UA) Negative mg/dL (NEG) Urine Ketones (Stick) Negative mg/dL (NEG) Urine Blood Negative (NEG) Urine Nitrite Negative (NEG) Urine Bilirubin Negative (NEG) Urine Urobilinogen Dipstick 0.2 mg/dL (0.2 mg/dL) Urine Leukocyte Esterase Negative (NEG) Urine RBC 0 /HPF (0-2) Urine WBC Rare /HPF (0-4) Urine Squamous Epithelial Cells Many /LPF Urine Bacteria 0 /HPF (0-FEW) Urine Mucus Marked /LPF Urine Opiates Screen Pos (NEG) Urine Methadone Screen Neg (NEG) Urine Barbiturates Neg (NEG) Urine Phencyclidine Screen Neg (NEG) Urine Amphetamine/Methamphetamine Neg (NEG) Urine Benzodiazepines Screen Neg (NEG) Urine Cocaine Screen Pos (NEG) Urine Cannabinoids Screen Pos (NEG) Urine Ethyl Alcohol Neg (NEG) Laboratory Tests 08/15/18 11:45 Laboratory Tests 08/15/18 11:45 (ANNA FARRIS APRN) EKG EKG [] (ANNA FARRIS APRN) Radiology/Procedures Radiology/Procedures []PROCEDURE: PORTABLE CHEST 1V Single view of the chest. 08/15/2018 11:30 AM Indication: CHEST PAIN X 2 DAYS, NAUSEA Comparison: Chest radiograph June 11, 2018 Findings: Right upper lobe scarring is similar. No new focal consolidation is seen. No pneumothorax or pleural effusion is seen. Heart size is normal. No acute osseous abnormalities are seen. Impression: No evidence of acute cardiopulmonary process or acute change from prior study. Electronically signed by: Ld White MD (08/15/2018 11:45 AM) [facility] [id number] DICTATED and SIGNED BY: LD WHITE MD DATE: 08/15/18 1145 (ANNA FARRIS APRN) Course & Med Decision Making Course & Med Decision Making Pertinent Labs and Imaging studies reviewed. (See chart for details) This is a 52-year-old female patient presenting to the ED today with left-sided chest pain radiating to the left jaw that began 2 days ago. Patient is also complaining of chronic low back pain. EKG is negative, troponin is normal, CBC CMP with no acute findings. Chest x- ray is negative. Drug screen noted for cocaine use which could be the source of her pain. Also noted for marijuana use and opiates. Heart score 3 Spoke with Bren nurse practitioner at Dr. Jelena Jeffery's office, she states Jelena Jeffery is not able to accept patient because she has never seen this patient. Spoke with who accepted patient for admission Spoke with Cristino [employer] for radiology who will follow-up with patient. He requested echocardiogram to be ordered. (ANNA FARRIS APRN) Dragon Disclaimer Dragon Disclaimer This electronic medical record was generated, in whole or in part, using a voice recognition dictation system. (ANNA FARRIS APRN) Departure Departure Impression: Primary Impression: Chest pain Additional Impressions: Cocaine use Marijuana use Chronic back pain Smoking addiction Disposition: ADMITTED INPATIENT Condition: STABLE Referrals: NO PCP (PCP) Attending Signature Attending Signature I have reviewed the PA/[employer]'s note and plan of care. I was available for consultation as needed during the patient's visit in the emergency department. I agree with the clinical impression, plan, and disposition. (MAHESH WOOTEN DO) Problem Qualifiers Primary Impression: Chest pain Chest pain type: unspecified Qualified Codes: R07.9 - Chest pain, unspecified Additional Impressions: Chronic back pain Back pain location: low back pain Back pain laterality: bilateral Sciatica presence: without sciatica Qualified Codes: M54.5 - Low back pain; G89.29 - Other chronic pain ANNA FARRIS APRN Aug 15, 2018 11:48 MAHESH WOOTEN DO Aug 16, 2018 10:25
[2018-08-15 11:55] LABS: BASO % 1 % (0-3); EOS # 0.1 x10^3/uL (0.0-0.7); EOS % 1 % (0-3); HEMATOCRIT 41.6 % (36.0-47.0); HEMOGLOBIN 13.3 g/dL (12.0-15.5); LYMPH # 1.7 x10^3/uL (1.0-4.8); LYMPH % 26 % (24-48); MEAN CORPUSCULAR HEMOGLOBIN 29 pg (25-35); MEAN CORPUSCULAR HGB CONC 32 g/dL (31-37); MEAN CORPUSCULAR VOLUME 92 fL (79-100); MONO # 0.3 x10^3/uL (0.0-1.1); MONO % 4 % (0-9); NEUT # 4.6 x10^3uL (1.8-7.7); NEUT % 69 % (31-73); PLATELET COUNT 329 x10^3/uL (140-400); RED BLOOD COUNT 4.54 x10^6/uL (3.50-5.40); RED CELL DISTRIBUTION WIDTH 14.5 % (11.5-14.5); WHITE BLOOD COUNT 6.6 x10^3/uL (4.0-11.0)
[2018-08-15] MEDS: NITROGLYCERIN SUBLINGUAL 0.4 MG BOTTLE OF 25. SL PRN ×3 (11:55→12:09)
[2018-08-15 12:04] LABS: PROTHROMBIN TIME PATIENT 13.6 SEC (11.7-14.0)
[2018-08-15 12:06] LABS: CALCIUM 8.8 mg/dL (8.5-10.1); CREATININE 0.8 mg/dL (0.6-1.0); GFR 90.4; POTASSIUM 4.4 mmol/L (3.5-5.1)
[2018-08-15 12:11] LABS: BILIRUBIN,URINE NEGATIVE (NEG); CLARITY,URINE CLEAR; COLOR,URINE YELLOW; NITRITE,URINE NEGATIVE (NEG); PH,URINE 5.5; PROTEIN,URINE NEGATIVE (NEG-TRACE); UROBILINOGEN,URINE 0.2 mg/dL (0.2 mg/dL)
[2018-08-15 12:12] LABS: ALBUMIN 3.8 g/dL (3.4-5.0); MAGNESIUM 1.8 mg/dL (1.8-2.4); TOTAL BILIRUBIN 0.3 mg/dL (0.2-1.0); TOTAL PROTEIN 7.6 g/dL (6.4-8.2)
[2018-08-15] MEDS: MORPHINE SULFATE 4 MG/ML VIAL. IV/SQ PRN ×3 (12:14→15:59)
[2018-08-15 12:17] LABS: AMPHETAMINE/METHAMPHETAMINE NEG (NEG); BACTERIA,URINE 0 /HPF (0-FEW); BARBITURATES NEG (NEG); BENZODIAZEPINES NEG (NEG); CANNABINOIDS POS (NEG); COCAINE POS (NEG); METHADONE NEG (NEG); OPIATES POS (NEG); PHENCYCLIDINE NEG (NEG); RBC,URINE 0 /HPF (0-2); SQUAMOUS EPITHELIAL CELL,UR MANY /LPF; WBC,URINE RARE /HPF (0-4)
[2018-08-15 12:21] LABS: CREATINE KINASE 67 U/L (26-192)
[2018-08-15] MEDS ORDERED: ONDANSETRON PF 4 MG/2 ML VIAL. IV PRN (14:00)
[2018-08-15] MEDS ORDERED: ACETAMINOPHEN 325 MG TABLET. PO PRN (14:00)
[2018-08-15] MEDS ORDERED: fentaNYL PF VIAL 100 MCG/2 ML VIAL IV PRN (14:00)
[2018-08-15] MEDS ORDERED: PROCHLORPERAZINE 10 MG/2 ML VIAL. IV PRN (14:00)
[2018-08-15] MEDS ORDERED: ALBUTEROL SULFATE 2.5 MG/3 ML NEBU. NEB PRN (14:15)
[2018-08-15] MEDS ORDERED: ALBUTEROL SULFATE 2.5 MG/3 ML NEBU. INH PRN (14:15)
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
--- NOTE | 2018-08-15 14:47 | PDOC2 ---
KAT FOWLER COMPUTER RECYCLING WORKER 08/15/18 1447: CARDIAC CONSULT DATE OF CONSULT Date of Consult DATE: 08/15/18 TIME: 14:39 REASON FOR CONSULT Reason for Consult: Chest pain, cocaine use REFERRING PHYSICIAN Referring Physician: Liliana SOURCE Source: Chart review, Patient HISTORY OF PRESENT ILLNESS HISTORY OF PRESENT ILLNESS This is a pleasant 52 yo female admitted for complains. of chest pain. Reports that she has been having chest tightness since Monday and has been having coughing spells. Also with nausea, vomiting and diarrhea. Has had fever with Tmax last night at 101. Positive for SYLVESTER, no jaw tightness or arm discomfort. No recent falls or injury. No past hx of CAD, arrhythmias or VTE. Reports that he just accidentally took a "arian with cocaine on Monday" She continues to smoke tobacco. PAST MEDICAL HISTORY Cardiovascular: HTN Pulmonary: COPD, Pneumonia Renal/: Other (nephrolithiasis) SOCIAL HISTORY Smoke: <1 pack per day CURRENT MEDICATIONS CURRENT MEDICATIONS Current Medications Medications (Trade) Dose Ordered Sig/Fifi Route PRN Reason Start Time Stop Time Status Last Admin Dose Admin Aspirin (Melisa Aspirin) 325 mg 1X ONCE PO 08/15/18 11:30 08/15/18 11:38 DC 08/15/18 12:10 Nitroglycerin (Nitrostat) 0.4 mg PRN Q5MIN PRN SL CP RATING > 1/10 08/15/18 11:30 08/16/18 11:29 08/15/18 12:09 Morphine Sulfate (Morphine Sulfate) 4 mg PRN Q15MIN PRN IV/SQ PAIN GREATER THAN 3/10 08/15/18 11:30 08/16/18 11:29 08/15/18 12:14 Famotidine (Pepcid Vial) 20 mg 1X ONCE IVP 08/15/18 11:30 08/15/18 11:38 DC 08/15/18 11:57 Ondansetron HCl (Zofran) 4 mg 1X ONCE IV 08/15/18 11:30 08/15/18 11:38 DC 08/15/18 11:55 ALLERGIES ALLERGIES: Coded Allergies: NSAIDS (Non-Steroidal Anti-Inflamma (Verified Allergy, Mild, stomach ache , 02/25/18) egg (Verified Allergy, Mild, vomiting, 02/25/18) ROS Review of System 14 point ROS evaluated with pertinent positives noted per HPI PHYSICAL EXAM General: Alert, Oriented X3, Cooperative, No acute distress HEENT: Atraumatic, Mucous membr. moist/pink, Other (frontal tenderness to frontal sinus region) Lungs: Clear to auscultation, Normal air movement Heart: Regular rate (SR), Normal S1, Normal S2, No murmurs Abdomen: Soft, No tenderness Extremities: No cyanosis, No edema Skin: No breakdown, No significant lesion Neuro: Normal speech, Sensation intact Psych/Mental Status: Mental status NL, Mood NL MUSCULOSKELETAL: Osteoarthritic changes both hands VITALS VITALS Vital Signs Date Time Temp Pulse Resp B/P (MAP) Pulse Ox O2 Delivery O2 Flow Rate FiO2 08/15/18 12:28 86 18 135/96 (109) 95 Nasal Cannula 2.0 08/15/18 11:22 98.0 98.0 LABS Lab: Laboratory Tests Test 08/15/18 11:45 08/15/18 11:50 White Blood Count 6.6 x10^3/uL (4.0-11.0) Red Blood Count 4.54 x10^6/uL (3.50-5.40) Hemoglobin 13.3 g/dL (12.0-15.5) Hematocrit 41.6 % (36.0-47.0) Mean Corpuscular Volume 92 fL (79-100) Mean Corpuscular Hemoglobin 29 pg (25-35) Mean Corpuscular Hemoglobin Concent 32 g/dL (31-37) Red Cell Distribution Width 14.5 % (11.5-14.5) Platelet Count 329 x10^3/uL (140-400) Neutrophils (%) (Auto) 69 % (31-73) Lymphocytes (%) (Auto) 26 % (24-48) Monocytes (%) (Auto) 4 % (0-9) Eosinophils (%) (Auto) 1 % (0-3) Basophils (%) (Auto) 1 % (0-3) Neutrophils # (Auto) 4.6 x10^3uL (1.8-7.7) Lymphocytes # (Auto) 1.7 x10^3/uL (1.0-4.8) Monocytes # (Auto) 0.3 x10^3/uL (0.0-1.1) Eosinophils # (Auto) 0.1 x10^3/uL (0.0-0.7) Basophils # (Auto) 0.0 x10^3/uL (0.0-0.2) Prothrombin Time 13.6 SEC (11.7-14.0) Prothromb Time International Ratio 1.1 (0.8-1.1) Sodium Level 141 mmol/L (136-145) Potassium Level 4.4 mmol/L (3.5-5.1) Chloride Level 103 mmol/L (98-107) Carbon Dioxide Level 27 mmol/L (21-32) Anion Gap 11 (6-14) Blood Urea Nitrogen 15 mg/dL (7-20) Creatinine 0.8 mg/dL (0.6-1.0) Estimated GFR (Cockcroft-Gault) 90.4 BUN/Creatinine Ratio 19 (6-20) Glucose Level 96 mg/dL (70-99) Calcium Level 8.8 mg/dL (8.5-10.1) Magnesium Level 1.8 mg/dL (1.8-2.4) Total Bilirubin 0.3 mg/dL (0.2-1.0) Aspartate Amino Transf (AST/SGOT) 12 U/L (15-37) Alanine Aminotransferase (ALT/SGPT) 17 U/L (14-59) Alkaline Phosphatase 64 U/L (46-116) Creatine Kinase 67 U/L (26-192) Creatine Kinase MB (Mass) 0.5 ng/mL (0.0-3.6) Creatine Kinase MB Relative Index % (0-4) Troponin I Quantitative < 0.017 ng/mL (0.000-0.055) OS-Jez-X-Type Natriuretic Peptide 24 pg/mL (0-124) Total Protein 7.6 g/dL (6.4-8.2) Albumin 3.8 g/dL (3.4-5.0) Albumin/Globulin Ratio 1.0 (1.0-1.7) Lipase 143 U/L (73-393) Thyroid Stimulating Hormone (TSH) 0.994 uIU/mL (0.358-3.74) Urine Collection Type Unknown Urine Color Yellow Urine Clarity Clear Urine pH 5.5 Urine Specific [place] 1.025 Urine Protein Negative mg/dL (NEG-TRACE) Urine Glucose (UA) Negative mg/dL (NEG) Urine Ketones (Stick) Negative mg/dL (NEG) Urine Blood Negative (NEG) Urine Nitrite Negative (NEG) Urine Bilirubin Negative (NEG) Urine Urobilinogen Dipstick 0.2 mg/dL (0.2 mg/dL) Urine Leukocyte Esterase Negative (NEG) Urine RBC 0 /HPF (0-2) Urine WBC Rare /HPF (0-4) Urine Squamous Epithelial Cells Many /LPF Urine Bacteria 0 /HPF (0-FEW) Urine Mucus Marked /LPF Urine Opiates Screen Pos (NEG) Urine Methadone Screen Neg (NEG) Urine Barbiturates Neg (NEG) Urine Phencyclidine Screen Neg (NEG) Urine Amphetamine/Methamphetamine Neg (NEG) Urine Benzodiazepines Screen Neg (NEG) Urine Cocaine Screen Pos (NEG) Urine Cannabinoids Screen Pos (NEG) Urine Ethyl Alcohol Neg (NEG) ASSESSMENT/PLAN ASSESSMENT/PLAN 1. Chest pain: possible vasopasm vs bronchospasm.. initial trop nml. EKG SR 2. Fever with diarrhea possible sinusitis: Tmax at home 101. Defer to PCP 3. Cough/postnasal drip syndrome 4. Substance abuse: +DS cocaine and marijuana. Claims only use cocaine Monday 5. HTN: controlled 6. COPD with continued tobaccoism 7. Hx of PUD Recommendations 1. TTE. lipids, trend troponin. Will repeat 2. Cessation of marijuana, cocaine and tobacco discussed. 3. Restart home norvasc 4. ASA. 5. Pending workup as above will consider for outpt stress test if cocaine free as an outpt. EVITA LYNN MD 08/15/188: CARDIAC CONSULT ASSESSMENT/PLAN ASSESSMENT/PLAN Pt. seen and examined. Agree with above Shipwright Supervisor note. Supportive care. KAT FOWLER COMPUTER RECYCLING WORKER Aug 15, 2018 14:47 EVITA LYNN MD Aug 15, 2018 19:18
[2018-08-15 14:58] LABS: CHOLESTEROL/HDL RATIO 3.5
[2018-08-15] MEDS: HEPARIN for SUB-Q USE 5,000 UNIT/ML VIAL. SQ SCH ×2 (15:05→21:39)
--- NOTE | 2018-08-15 15:11 | CARD ---
MR#: [id number] Date of Study: 08/15/2018 Ordering Physician: ANNA FARRIS, Referring Physician: ANNA FARRIS Tech: Apurva Kwok RDCS APPROVED REPORT EXAM: Two-dimensional and M-mode echocardiogram with Doppler and color Doppler. Other Information Quality : Good INDICATION Chest Pain 2D DIMENSIONS Left Atrium(2D)2.8 (1.6-4.0cm)IVSd1.6 (0.7-1.1cm) Aortic Root(2D)2.8 (2.0-3.7cm)LVDd3.7 (3.9-5.9cm) LVOT Diameter2.0 (1.8-2.4cm)PWd1.3 (0.7-1.1cm) LVDs2.6 (2.5-4.0cm)FS (%) 30.8 % SV35.0 mlLVEF(%)59.2 (>50%) Aortic Valve AoV Peak Dinesh.115.7cm/sAoV VTI22.1cm AO Peak GR.5.4mmHgLVOT Peak Dinesh.90.4cm/s LVOT VTI 17.37cmAO Mean GR.3mmHg ANI (VMAX)2.81ur0JMJ (VTI)2.40cm2 Mitral Valve MV E Xczqspbw33.8cm/sMV DECEL [id number] MV A Oubmhmso34.0cm/sMV [id number] E/A Ratio0.8MVA (PHT)3.39cm2 TDI E/Medial E'9.8 Pulmonary Vein S1 Yuqzpiog34.7cm/sD2 Bgkzngoi80.6cm/s LEFT VENTRICLE The left ventricle is normal size. There is mild to moderate concentric left ventricular hypertrophy. The left ventricular systolic function is normal. The Ejection Fraction is 60-65%. There is normal L V segmental wall motion. Transmitral Doppler flow pattern is Grade I-abnormal relaxation pattern. RIGHT VENTRICLE The right ventricle is normal size. The right ventricular systolic function is normal. ATRIA The left atrium size is normal. The right atrium size is normal. The interatrial septum is intact wit h no evidence for an atrial septal defect or patent foramen ovale as noted on 2-D or Doppler imaging. AORTIC VALVE The aortic valve is normal in structure and function. Doppler and Color Flow revealed no significant aortic regurgitation. There is no significant aortic valvular stenosis. MITRAL VALVE The mitral valve is normal in structure and function. There is no evidence of mitral valve prolapse. There is no mitral valve stenosis. Doppler and Color Flow revealed no mitral valve regurgitation note d. TRICUSPID VALVE The tricuspid valve is normal in structure and function. Doppler and Color Flow revealed no tricuspid valve regurgitation noted. There is no tricuspid valve stenosis. PULMONIC VALVE The pulmonic valve is not well visualized. Doppler and Color Flow revealed no pulmonic valvular regur gitation. There is no pulmonic valvular stenosis. GREAT VESSELS The aortic root is normal in size. The ascending aorta is not well seen. The IVC is normal in size an d collapses >50% with inspiration. PERICARDIAL EFFUSION There is no evidence of significant pericardial effusion. Critical Notification Critical Value: No <Conclusion> The left ventricular systolic function is normal. The Ejection Fraction is 60-65%. There is normal LV segmental wall motion. Transmitral Doppler flow pattern is Grade I-abnormal relaxation pattern. No significant valvular abnormalities. There is no evidence of significant pericardial effusion. Signed by : Spenser Torres, Electronically Approved : 08/15/2018 15:11:27
[2018-08-15] MEDS: TAMSULOSIN 0.4 MG CAP.ER.24H. PO SCH (15:59)
[2018-08-15] MEDS: LIDOCAINE (700MG/PATCH) PATCH. TD SCH (15:59)
--- NOTE | 2018-08-15 16:30 | NUR ---
Pt arrives to unit via wheelchair. Pt A&O x4 c/o chest pain 12/08 at this time. Pt orientated to room. Admission requirements in progress. Pt laying in her bed at this time with call light in reach.
[2018-08-15] MEDS: oxyCODONE/APAP 10/325 1 TAB TABLET PO PRN ×2 (17:24→21:32)
[2018-08-15 17:36] VITALS: BP 124/67
[2018-08-15 19:00] VITALS: BP 130/81
[2018-08-15] MEDS ORDERED: ZOLPIDEM 5 MG TABLET. PO PRN (20:00)
[2018-08-15] MEDS: ALBUTEROL SULFATE 2.5 MG/3 ML NEBU. NEB SCH (20:19)
[2018-08-15] MEDS: BUDESONIDE 0.5 MG/2 ML NEBU. NEB SCH (20:19)
[2018-08-15] MEDS ORDERED: PATCH REMOVAL. MC SCH (21:00)
[2018-08-15] MEDS: DOCUSATE SODIUM 100 MG CAPSULE. PO SCH (21:00)
[2018-08-15] MEDS: SENNOSIDES/DOCUSATE 8.6/50MG TABLET. PO SCH (21:32)
[2018-08-15 23:00] VITALS: BP 118/59
[2018-08-16] MEDS: oxyCODONE/APAP 10/325 1 TAB TABLET PO PRN ×4 (01:30→15:09)
[2018-08-16 03:00] VITALS: BP 119/63
[2018-08-16 03:14] LABS: HEMOGLOBIN A1C 5.1 % (4.8-5.6)
[2018-08-16 04:42] LABS: BASO % 0 % (0-3); EOS # 0.1 x10^3/uL (0.0-0.7); EOS % 1 % (0-3); HEMATOCRIT 35.7 % (36.0-47.0); HEMOGLOBIN 11.4 g/dL (12.0-15.5); LYMPH # 3.1 x10^3/uL (1.0-4.8); LYMPH % 35 % (24-48); MEAN CORPUSCULAR HEMOGLOBIN 30 pg (25-35); MEAN CORPUSCULAR HGB CONC 32 g/dL (31-37); MEAN CORPUSCULAR VOLUME 93 fL (79-100); MONO # 0.5 x10^3/uL (0.0-1.1); MONO % 6 % (0-9); NEUT % 57 % (31-73); PLATELET COUNT 294 x10^3/uL (140-400); RED BLOOD COUNT 3.85 x10^6/uL (3.50-5.40); RED CELL DISTRIBUTION WIDTH 14.5 % (11.5-14.5); WHITE BLOOD COUNT 8.8 x10^3/uL (4.0-11.0)
[2018-08-16 05:01] LABS: CALCIUM 8.5 mg/dL (8.5-10.1); CREATININE 0.9 mg/dL (0.6-1.0); POTASSIUM 3.7 mmol/L (3.5-5.1)
[2018-08-16] MEDS: HEPARIN for SUB-Q USE 5,000 UNIT/ML VIAL. SQ SCH ×2 (05:22→14:00)
[2018-08-16] MEDS: ALBUTEROL SULFATE 2.5 MG/3 ML NEBU. NEB SCH (07:37)
[2018-08-16] MEDS: BUDESONIDE 0.5 MG/2 ML NEBU. NEB SCH (07:37)
[2018-08-16 07:39] VITALS: BP 127/64
[2018-08-16] MEDS: LIDOCAINE (700MG/PATCH) PATCH. TD SCH (08:56)
[2018-08-16] MEDS: DOCUSATE SODIUM 100 MG CAPSULE. PO SCH (08:56)
[2018-08-16] MEDS: SENNOSIDES/DOCUSATE 8.6/50MG TABLET. PO SCH (08:56)
[2018-08-16] MEDS: TAMSULOSIN 0.4 MG CAP.ER.24H. PO SCH (08:57)
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
[2018-08-16] MEDS ORDERED: POTASSIUM CHLORIDE 20 MEQ TABLET.ER. PO ONE (09:30)
[2018-08-16] MEDS ORDERED: OXYC1TAB15 PO (11:08)
[2018-08-16] MEDS ORDERED: ZOLP5TAB PO (11:08)
[2018-08-16] MEDS ORDERED: BUSP5TAB PO (11:08)
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
--- NOTE | 2018-08-16 11:21 | NUR ---
SS following for discharge planning. SS reviewed pt chart. Pt is from home and is currently on room air. Pt has a history of substance use and was positive for Cocaine, THC, and Opiates. Angel from the PAT team assessed pt. No discharge needs noted at this time. Discharge orders on the chart.
[2018-08-16 11:25] VITALS: BP 122/81
[2018-08-16 11:42] LABS: BILIRUBIN,URINE NEGATIVE (NEG); CLARITY,URINE CLEAR; COLOR,URINE YELLOW; NITRITE,URINE NEGATIVE (NEG); PH,URINE 5.5; PROTEIN,URINE NEGATIVE (NEG-TRACE); UROBILINOGEN,URINE 0.2 mg/dL (0.2 mg/dL)
[2018-08-16 11:55] LABS: SQUAMOUS EPITHELIAL CELL,UR MOD /LPF
[2018-08-16 11:56] LABS: BACTERIA,URINE 0 /HPF (0-FEW); RBC,URINE 0 /HPF (0-2)
[2018-08-16 14:54] VITALS: BP 112/67
[2018-08-23] MEDS ORDERED: USTE90DI SQ (11:04)
[2018-08-23] MEDS ORDERED: ACET500T68 PO (11:04)
[2018-08-23] MEDS ORDERED: LISI-338 PO (11:04)
== END 2018-08-16 16:00 | disposition home or self-care (01) | DRG 917 ==
LOC: ER 11:13 → ED HOLD 13:16 → 2 NORTH 16:41
PROVIDERS: ADMIT Internal Medicine; ATTEND Internal Medicine
DX: T40.5X1A Poisoning by cocaine, accidental (unintentional), initial encounter (principal); J96.20 Acute and chronic respiratory failure, unspecified whether with hypoxia or hypercapnia; M19.90 Unspecified osteoarthritis, unspecified site; E78.00 Pure hypercholesterolemia, unspecified; E78.5 Hyperlipidemia, unspecified; G89.29 Other chronic pain; F12.10 Cannabis abuse, uncomplicated; F17.210 Nicotine dependence, cigarettes, uncomplicated; I10 Essential (primary) hypertension; J44.9 Chronic obstructive pulmonary disease, unspecified; Z82.49 Family history of ischemic heart disease and other diseases of the circulatory system; Z87.01 Personal history of pneumonia (recurrent); Z79.899 Other long term (current) drug therapy; Z87.11 Personal history of peptic ulcer disease; Z87.442 Personal history of urinary calculi; Z90.710 Acquired absence of both cervix and uterus; Z88.8 Allergy status to other drugs, medicaments and biological substances; Z91.012 Allergy to eggs; Y92.89 Other specified places as the place of occurrence of the external cause
CPT/HCPCS: 36415; 71045; 80048; 80053; 80061; 80307; 81001; 82553; 83036; 83690; 83735; 83880; 84443; 84484; 85025; 85610; 93005; 93306; 94640; 94760; 96374; 96375; J1644; J2270; J2405; J3490; J7613; J7626; 99285-25

== ENCOUNTER → 2018-08-23 | Outpatient (CLI) | payer OTHER ==
[2018-08-16 14:54] VITALS: BP 112/67
[~2018-08-23] MED LIST changes: +ACET500T68 PO; +BUSP5TAB PO; +LISI-338 PO; +PHEN100T82 PO; +USTE90DI SQ; +ZOLP5TAB PO
--- NOTE | 2018-08-23 23:35 | PAIN ---
DATE OF SERVICE: 08/23/2018 INITIAL CONSULTATION FOR PAIN CLINIC CHIEF COMPLAINT: Low back and left greater than right lower extremity pain. HISTORY OF PRESENT ILLNESS: The patient is a 52-year-old female who presents with history of pain since about 2014, gradually increasing, not a result of any specific injury or action that she is aware of. She spends a lot of time on her feet with working. 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 The patient reports pain is getting worse over the past 6-7 months, again without any specific injury or accident recently. The patient reports pain across the low back, more on the right posterior gluteus with more weakness on the left leg with radiation to posterior gluteus, posterior thigh, posterior knees and calves bilaterally. The patient reports it is generally in both thighs, but sometimes worse on the left, sometimes worse on the right. The patient reports it is constant, sharp, throbbing with numbness and radiating pain in the lower extremities, but again bilaterally. The patient reports it wakes her from sleep at least 3-4 times a night and can affect her bowel or bladder control, but no incontinence. The patient reports it does affect her ability to walk, she uses a cane at times, does not have one with her today. The patient has had no recent formal therapies or chiropractic treatment. She has done some exercise therapy in the past, reports she still does some stretching on her own, but that is all. As far as any formal therapies currently, the patient has taken hydrocodone in June this year and oxycodone currently, which does decrease the pain by about 50% or more. The patient rates her disability rate from 0-10, 10 being the worst at 7 with family and home responsibilities, recreation and social activity; 10 with occupation; 8 with sexual behavior; 6 with self-care and 5 with life support activities. She did have an MRI of lumbar spine, which was dated 06/13/2018 showing L3-L4 left paracentral to foraminal disk protrusion superimposed on disk bulge with minimal left foraminal stenosis and effacement of the left lateral recess with abutment and deviation of the traversing left L4 nerve root. L4-L5 shows shallow broad-based left foraminal to extraforaminal disk protrusion and annular tear superimposed on disk bulge, minimal right and mild left foraminal stenosis, moderate central canal stenosis. L5-S1 shows left foraminal to extraforaminal disk protrusion with slight superior and inferior extrusion, also right paracentral annular tear and right foraminal to lateral disk protrusion and osteophyte complex superimposed on disk bulge at the minimal right, [id number] left foraminal stenosis with abutment of the exiting left greater than right L5 nerve roots. PAST MEDICAL HISTORY: Significant for COPD; emphysema; cigarette smoking half pack a day, still smokes; hypertension; pneumonia; hyperlipidemia; dizziness; kidney stones; arthritis. PREVIOUS SURGERY: Include adenoidectomy, abdominal hernia repair, left inguinal hernia repair, partial hysterectomy. CURRENT MEDICATIONS: List includes lisinopril, Stelara, acetaminophen, albuterol ProAir inhaler and buspirone. ALLERGIES: THE PATIENT IS ALLERGIC TO NONSTEROIDAL ANTI-INFLAMMATORY DRUGS. FAMILY HISTORY: Significant for hypertension. SOCIAL HISTORY: The patient continues to smoke about half a pack of cigarettes a day; drinks socially, maybe 1 or 2 drinks a month of alcohol; smokes marijuana once every week or so. Does not use any other illegal, illicit or recreational drugs. She is , has 2 children living at home and is primary caregiver for them. REVIEW OF SYSTEMS: The patient's review of systems is positive for those items mentioned in history of present illness. All systems reviewed and otherwise negative. It is complete, full and well documented on the patient's chart. PHYSICAL EXAMINATION: VITAL SIGNS: The patient's blood pressure is 142/98, pulse 79, respirations 16, temperature 97.6 degrees Fahrenheit, height is 5 feet 7 inches, weighs 184 pounds. GENERAL: The patient is awake, alert, oriented, appropriate, very pleasant demeanor. HEENT: Head shows normocephalic, atraumatic. Extraocular movements are intact and symmetrical. Oral cavity: Mucous membranes moist and pink. Dentition intact. NECK: Shows anterior throat supple without palpable lymphadenopathy noted. Swallow reflex symmetrical. CHEST: Shows normal with inspection. Breath sounds clear to auscultation bilaterally. HEART: Shows S1, S2 clear. No murmurs auscultated. ABDOMEN: Soft, nontender, nondistended. No palpable organomegaly is noted. No rebound or guarding demonstrated. BACK: Shows spine grossly in the midline. Normal-appearing thoracic kyphosis and lumbar lordotic curvature. No previous bruises or sores are noted or rashes. The patient's back shows good rotational motion of the lumbar spine, both laterally greater than 10 degrees right and left as well as extension greater than 10 degrees, forward flexion 45 degrees without difficulty. The patient's paraspinous musculature shows symmetrical on inspection; on palpation shows some moderate tenderness throughout the upper, middle, lower distribution of paraspinous muscles. No tenderness over the spinous processes, sacrum or sacroiliac regions. EXTREMITIES: Lower extremities show deep tendon reflexes at 2+ in the patellar, 1+ tendo calcaneus tendons. Motor exam is approximately 4 on a scale of 5 left dorsiflexion, extension, quadriceps and hamstrings and 5/5 on the right. Peripheral pulses are 1+ posterior tibia. No peripheral edema is noted bilaterally. Gaenslen's and Gary's maneuvers are negative bilaterally. The patient's straight leg raise is mildly positive on the left at about 40 degrees with decreased knee flexion, right side is negative. The patient is able to stand, stand on her toes without significant difficulty or loss of balance, walks with a normal-appearing gait for short distance in the office, does not have any assistive devices with her to ambulate currently. SKIN: Warm and dry, good turgor. No edema. No sores, rashes or bruising throughout. IMPRESSION: This is a 52-year-old female with: 1. Long history, approximately 5 years, low back and bilateral lower extremity pain, again worse on the left than the right with weakness and fatigability on the left in a radicular fashion. 2. MRI scan of lumbar spine as noted. 3. Hypertension. 4. Arthritis. 5. Cigarette smoking. PLAN: Options were discussed with the patient including conservative medical management, physical therapy, and interventional techniques. The patient opted to proceed with interventional techniques. We discussed the lumbar epidural steroid injection using description as well as anatomical models to describe the procedure. The patient would like to wait for a better scheduling as she has an another appointment this morning and would like to wait on pursuing this, but does wish to proceed. We will have her return in approximately 1 week when her schedule allows and plan on lumbar epidural steroid injection at that time. SHEY LARSEN MD DR: PEDRO/ruma JOB#: [id number] / [id number] ANA Dumont MD
== END | disposition home or self-care (01) ==
LOC: PNCL 09:40
PROVIDERS: ATTEND Anesthesiology
DX: M79.604 Pain in right leg (principal); M79.605 Pain in left leg; M54.5 Low back pain; I10 Essential (primary) hypertension; M19.90 Unspecified osteoarthritis, unspecified site; F17.210 Nicotine dependence, cigarettes, uncomplicated; J44.9 Chronic obstructive pulmonary disease, unspecified; E78.5 Hyperlipidemia, unspecified
CPT/HCPCS: G0463

== ENCOUNTER 2018-09-29 11:18 | Emergency (ER) | payer OTHER ==
[~2018-09-29] VITALS: Ht 162.6 cm; Wt 80.7 kg
[~2018-09-29 11:18] MED LIST changes: -PHEN100T82 PO
[2018-09-29 11:34] VITALS: BP 141/67
[2018-09-29 11:49] LABS: BILIRUBIN,URINE SMALL (NEG); CLARITY,URINE CLEAR; COLOR,URINE AMBER; NITRITE,URINE NEGATIVE (NEG); PROTEIN,URINE 30 mg/dL (NEG-TRACE); UROBILINOGEN,URINE 0.2 mg/dL (0.2 mg/dL)
[2018-09-29 12:01] LABS: BACTERIA,URINE MODERATE /HPF (0-FEW); RBC,URINE OCC /HPF (0-2); SQUAMOUS EPITHELIAL CELL,UR MOD /LPF
[2018-09-29] MEDS ORDERED: HYDROcodone/APAP 5/325MG 1 TAB TABLET PO ONE (13:00)
[2018-09-29] MEDS ORDERED: PHEN100T82 PO (13:06)
--- NOTE | 2018-09-29 13:06 | PHYS DOC ---
Past Medical History Past Medical History: Arthritis, COPD, High Cholesterol, Hypertension, Kidney Stone, Other Additional Past Medical Histor: SPINAL STENOSIS Past Surgical History: Hysterectomy Additional Past Surgical Histo: hernia x 2, addenoidectomy Alcohol Use: Occasionally Drug Use: None Adult General Chief Complaint Chief Complaint: PAIN ON URINATION [facility] HPI Patient is a 52 year old female who presents with dysuria for 2 days. Patient denies any fever. Denies any urgency frequency. She states she is in the ED with the son who is being evaluated for vomiting and hence she decided to be checked too. Denies any fever. Denies any nausea vomiting. Review of Systems Review of Systems Constitutional: Denies fever or chills [] Eyes: Denies change in visual acuity, redness, or eye pain [] HENT: Denies nasal congestion or sore throat [] Respiratory: Denies cough or shortness of breath [] Cardiovascular: No additional information not addressed in HPI [] GI: Denies abdominal pain, nausea, vomiting, bloody stools or diarrhea [] : Reports dysuria, denies hematuria [] Musculoskeletal: Denies back pain or joint pain [] Integument: Denies rash or skin lesions [] Neurologic: Denies headache, focal weakness or sensory changes [] All other systems were reviewed and found to be within normal limits, except as documented in this note. Current Medications Current Medications Current Medications Medications (Trade) Dose Ordered Sig/Fifi Start Time Stop Time Status Last Admin Dose Admin Acetaminophen/ Hydrocodone Bitart (Lortab 5/325) 1 tab 1X ONCE 09/29/18 13:00 09/29/18 13:01 UNV Allergies Allergies Allergies Coded Allergies Type Severity Reaction Last Updated Verified NSAIDS (Non-Steroidal Anti-Inflamma Allergy Mild stomach ache 02/25/18 Yes egg Allergy Mild vomiting 02/25/18 Yes Physical Exam Physical Exam Constitutional: Well developed, well nourished, no acute distress, non-toxic appearance. [] HENT: Normocephalic, atraumatic, bilateral external ears normal, oropharynx moist, no oral exudates, nose normal. [] Eyes: PERRLA, EOMI, conjunctiva normal, no discharge. [] Neck: Normal range of motion, no tenderness, supple, no stridor. [] Cardiovascular:Heart rate regular rhythm, no murmur [] Lungs & Thorax: Bilateral breath sounds clear to auscultation [] Abdomen: Bowel sounds normal, soft, no tenderness, no masses, no pulsatile masses. [] Skin: Warm, dry, no erythema, no rash. [] Back: No tenderness, no CVA tenderness. [] Extremities: No tenderness, no cyanosis, no clubbing, ROM intact, no edema. [] Neurologic: Alert and oriented X 3, normal motor function, normal sensory function, no focal deficits noted. [] Psychologic: Affect normal, judgement normal, mood normal. [] Current Patient Data Vital Signs Vital Signs Date Time Temp Pulse Resp B/P (MAP) Pulse Ox O2 Delivery O2 Flow Rate FiO2 09/29/18 11:34 97.5 112 20 141/67 (91) 97 Room Air 97.5 Lab Values Laboratory Tests Test 09/29/18 11:30 Urine Collection Type Clean catch Urine Color [place] Urine Clarity Clear Urine pH 5.0 Urine Specific [place] 1.025 Urine Protein 30 mg/dL (NEG-TRACE) Urine Glucose (UA) Negative mg/dL (NEG) Urine Ketones (Stick) 15 mg/dL (NEG) Urine Blood Negative (NEG) Urine Nitrite Negative (NEG) Urine Bilirubin Small (NEG) Urine Urobilinogen Dipstick 0.2 mg/dL (0.2 mg/dL) Urine Leukocyte Esterase Trace (NEG) Urine RBC Occ /HPF (0-2) Urine WBC 1-4 /HPF (0-4) Urine Squamous Epithelial Cells Mod /LPF Urine Bacteria Moderate /HPF (0-FEW) Urine Mucus Marked /LPF EKG EKG [] Radiology/Procedures Radiology/Procedures [] Course & Med Decision Making Course & Med Decision Making Pertinent Labs and Imaging studies reviewed. (See chart for details) This is a 52-year-old female patient presenting to the ED today complaining of dysuria. Symptoms for 2 days. Patient is in the ED with the son who is being evaluated for cyclic vomiting. She states she decided to check in because her son is here to. Urine analysis is negative for infection. I went to give patient results, she was in the son's room. She started asking for narcotic pain medicine. Informed patient I have no indication for giving her any narcotic medication. She states she has chronic back pain. Informed her she needs to follow-up with her own PCP or she can take [id number] medications including naproxen. She states she is allergic to NSAIDs. I offered her cyclobenzaprine, she states she was already on tizanidine, I offered a Medrol Dosepak, she states she'll already on Medrol Dosepak, i asked her where she got the Medrol Dosepak and tizanidine, she states her PCP has already seen her for her chronic back pain. Informed her she needs to continue following up at the same have no indication of giving her any narcotic pain medication. Dragon Disclaimer Dragon Disclaimer This electronic medical record was generated, in whole or in part, using a voice recognition dictation system. Departure Departure Impression: Primary Impression: Dysuria Additional Impression: Chronic low back pain Disposition: HOME, SELF-CARE Condition: STABLE Referrals: BLANCA APONTE MD (PCP) follow up next week Patient Instructions: Back Pain, Adult, Dysuria Additional Instructions: You were evaluated in the emergency room, your urine has no infection. We will culture the urine, if it grows any infection we will call you and let you know. In the meantime continue taking [id number] remedies for your chronic back pain, you can also continue taking the prescriptions you have from your own doctor for chronic back pain. Follow-up with your own PCP next week. Scripts Phenazopyridine Hcl (PYRIDIUM) 100 Mg Tablet 100 MG PO TID, #9 TAB Prov: ANNA FARRIS APRN 09/29/18 Problem Qualifiers Additional Impression: Chronic low back pain Back pain laterality: bilateral Sciatica presence: with sciatica Sciatica laterality: bilateral sciatica Qualified Codes: M54.42 - Lumbago with sciatica, left side; M54.41 - Lumbago with sciatica, right side; G89.29 - Other chronic pain ANNA FARRIS APRN Sep 29, 2018 13:06
== END 2018-09-29 13:12 | disposition home or self-care (01) ==
LOC: ER 11:18
DX: R30.0 Dysuria (principal); G89.29 Other chronic pain; M54.41 Lumbago with sciatica, right side; M54.42 Lumbago with sciatica, left side; R11.10 Vomiting, unspecified; J44.9 Chronic obstructive pulmonary disease, unspecified; E78.00 Pure hypercholesterolemia, unspecified; I10 Essential (primary) hypertension; Z87.442 Personal history of urinary calculi; Z90.710 Acquired absence of both cervix and uterus; Z98.890 Other specified postprocedural states; Z91.012 Allergy to eggs; Z88.6 Allergy status to analgesic agent
CPT/HCPCS: 81001; 87086; 99284

== ENCOUNTER 2019-03-04 10:35 | Inpatient (IN) | payer MEDICAID, OTHER ==
[~2019-03-04] VITALS: Ht 162.6 cm; Wt 73.9 kg
[~2019-03-04 10:35] MED LIST changes: +LIDO700A21 TD; -LIDO700A39 TD; +PHEN100T82 PO
--- NOTE | 2019-03-04 11:43 | RAD ---
CHEST PA LATERAL History: Cough Comparison: August 15, 2018 Findings: No consolidation or pleural effusion. Normal heart size. Right apical pleural scarring, unchanged. Impression: 1. No acute cardiopulmonary process. Electronically signed by: Spencer Bland DO (03/04/2019 11:40 AM) [facility]
--- NOTE | 2019-03-04 11:53 | PHYS DOC ---
Past Medical History Past Medical History: Arthritis, COPD, High Cholesterol, Hypertension, Kidney Stone, Other Additional Past Medical Histor: SPINAL STENOSIS Past Surgical History: Hysterectomy Additional Past Surgical Histo: hernia x 2, addenoidectomy Alcohol Use: Occasionally Drug Use: None Adult General Chief Complaint Chief Complaint: COUGH HPI HPI Patient is a 53 year old female that states that she's been coughing up green stuff for 2 weeks. She also states she's been running fevers and no this morning was 100.9 at home. She states that she was seen in urgent care clinic this afternoon Zyrtec hasn't taken of last week. She also states that 2 days ago she started having right arm numbness, right leg numbness, and weakness to the right side. She rates her pain as 10 in severity. She has a history of COPD. Review of Systems Review of Systems Constitutional: Reports fever. Eyes: Denies change in visual acuity, redness, or eye pain [] HENT: Denies nasal congestion or sore throat [] Respiratory: Reports cough and shortness of breath [] Cardiovascular: No additional information not addressed in HPI [] GI: Denies abdominal pain, nausea, vomiting, bloody stools or diarrhea [] : Denies dysuria or hematuria [] Musculoskeletal: Denies back pain or joint pain [] Integument: Denies rash or skin lesions [] Neurologic: Reports R weakness/sensory changes. Endocrine: Denies polyuria or polydipsia [] Complete systems were reviewed and found to be within normal limits, except as documented in this note. Current Medications Current Medications Current Medications Medications (Trade) Dose Ordered Sig/Fifi Start Time Stop Time Status Last Admin Dose Admin Albuterol/ Ipratropium (Duoneb) 3 ml 1X ONCE 03/04/19 12:15 03/04/19 12:16 DC 03/04/19 12:33 3 ML Ketorolac Tromethamine (Toradol 15mg Vial) 10 mg 1X STAT 03/04/19 16:35 03/04/19 16:36 DC Methylprednisolone Sodium Succinate (SOLU-Medrol 125MG VIAL) 125 mg 1X ONCE 03/04/19 12:15 03/04/19 12:16 DC 03/04/19 14:08 125 MG Allergies Allergies Allergies Coded Allergies Type Severity Reaction Last Updated Verified NSAIDS (Non-Steroidal Anti-Inflamma Allergy Mild stomach ache 02/25/18 Yes egg Allergy Mild vomiting 02/25/18 Yes Physical Exam Physical Exam Constitutional: Well developed, well nourished, no acute distress, non-toxic appearance. [] HENT: Normocephalic, atraumatic, bilateral external ears normal, oropharynx moist, no oral exudates, nose normal. [] Eyes: PERRLA, EOMI, conjunctiva normal, no discharge. [] Neck: Normal range of motion, no tenderness, supple, no stridor. [] Cardiovascular:Heart rate regular rhythm, no murmur [] Lungs & Thorax: Bilateral breath sounds has scattered rhonchi and wheezing. Abdomen: Bowel sounds normal, soft, no tenderness, no masses, no pulsatile masses. [] Skin: Warm, dry, no erythema, no rash. [] Back: No tenderness, no CVA tenderness. [] Extremities: No tenderness, no cyanosis, no clubbing, ROM intact, no edema. [] Neurologic: Alert and oriented X 3, reduced motor function, reduced sensory function, no focal deficits noted. [] Psychologic: Affect normal, judgement normal, mood normal. [] Current Patient Data Vital Signs Vital Signs Date Time Temp Pulse Resp B/P (MAP) Pulse Ox O2 Delivery O2 Flow Rate FiO2 03/04/19 11:12 98.7 97 16 141/67 (91) 97 Room Air 98.7 Lab Values Laboratory Tests Test 03/04/19 13:09 03/04/19 14:30 White Blood Count 10.1 x10^3/uL (4.0-11.0) Red Blood Count 4.33 x10^6/uL (3.50-5.40) Hemoglobin 13.5 g/dL (12.0-15.5) Hematocrit 41.4 % (36.0-47.0) Mean Corpuscular Volume 96 fL (79-100) Mean Corpuscular Hemoglobin 31 pg (25-35) Mean Corpuscular Hemoglobin Concent 33 g/dL (31-37) Red Cell Distribution Width 13.7 % (11.5-14.5) Platelet Count 369 x10^3/uL (140-400) Neutrophils (%) (Auto) 67 % (31-73) Lymphocytes (%) (Auto) 27 % (24-48) Monocytes (%) (Auto) 5 % (0-9) Eosinophils (%) (Auto) 1 % (0-3) Basophils (%) (Auto) 1 % (0-3) Neutrophils # (Auto) 6.7 x10^3/uL (1.8-7.7) Lymphocytes # (Auto) 2.7 x10^3/uL (1.0-4.8) Monocytes # (Auto) 0.5 x10^3/uL (0.0-1.1) Eosinophils # (Auto) 0.1 x10^3/uL (0.0-0.7) Basophils # (Auto) 0.1 x10^3/uL (0.0-0.2) Lactic Acid Level 1.0 mmol/L (0.4-2.0) Troponin I Quantitative < 0.017 ng/mL (0.000-0.055) Ethyl Alcohol Level < 10 mg/dL (0-10) Prothrombin Time 12.8 SEC (11.7-14.0) Prothrombin Time INR 1.0 (0.8-1.1) Activated Partial Thromboplast Time 30 SEC (24-38) Sodium Level 147 mmol/L (136-145) H Potassium Level 3.7 mmol/L (3.5-5.1) Chloride Level 109 mmol/L (98-107) H Carbon Dioxide Level 28 mmol/L (21-32) Anion Gap 10 (6-14) Blood Urea Nitrogen 9 mg/dL (7-20) Creatinine 0.8 mg/dL (0.6-1.0) Estimated GFR (Cockcroft-Gault) 90.1 BUN/Creatinine Ratio 11 (6-20) Glucose Level 95 mg/dL (70-99) Calcium Level 9.1 mg/dL (8.5-10.1) Total Bilirubin 0.3 mg/dL (0.2-1.0) Aspartate Amino Transferase (AST) 14 U/L (15-37) L Alanine Aminotransferase (ALT) 16 U/L (14-59) Alkaline Phosphatase 67 U/L (46-116) Total Protein 7.1 g/dL (6.4-8.2) Albumin 3.4 g/dL (3.4-5.0) Albumin/Globulin Ratio 0.9 (1.0-1.7) L Laboratory Tests 03/04/19 13:09 Laboratory Tests 03/04/19 14:30 EKG EKG EKG interpreted by Dr. Cassandra Thompson with rate of 87. No STEMI. Radiology/Procedures Radiology/Procedures [id number] [place] [address] IMAGING REPORT Signed PATIENT: TRISTEN SPARKS ACCOUNT: [id number] : 1965 LOCATION: ER AGE: 53 SEX: F EXAM STATUS: REG ER ORD. PHYSICIAN: MAHESH STEIN APRN REASON: cough PROCEDURE: CHEST PA & LATERAL CHEST PA LATERAL History: Cough Comparison: August 15, 2018 Findings: No consolidation or pleural effusion. Normal heart size. Right apical pleural scarring, unchanged. Impression: 1. No acute cardiopulmonary process. Electronically signed by: Spencer Bland DO (03/04/2019 11:40 AM) [facility] DICTATED and SIGNED BY: SPENCER BLAND DO DATE: 03/04/19 1140 [][id number] [place] [address] IMAGING REPORT Signed PATIENT: TRISTEN SPARKS ACCOUNT: [id number] : 1965 LOCATION: ER AGE: 53 SEX: F EXAM STATUS: REG ER ORD. PHYSICIAN: MAHESH STEIN APRN REASON: left side weakness and numbness. PROCEDURE: CT HEAD WO CONTRAST EXAM: Head CT without contrast. HISTORY: Left-sided weakness and numbness. TECHNIQUE: Computed tomographic images of the head were obtained without contrast. *One or more of the following individualized dose reduction techniques were utilized for this examination: 1. Automated exposure control. 2. Adjustment of the mA and/or kV according to patient size. 3. Use of iterative reconstruction technique. COMPARISON: None. FINDINGS: There is no acute or subacute extra-axial or intraparenchymal hemorrhage. There is no mass effect or midline shift. There is no hydrocephalus. There is mild frontal predominant cerebral volume loss. The stoo-white matter differentiation pattern is intact. There is minimal ethmoid sinus mucosal thickening. There is a tiny amount of fluid within the mastoid air cells. No suspicious calvarial lesion is seen. IMPRESSION: No acute intracranial finding. Note is made that MRI is more sensitive for acute infarction. Electronically signed by: Vicky Goetz MD (03/04/2019 12:23 PM) [facility] DICTATED and SIGNED BY: VICKY GOETZ MD DATE: 03/04/19 1223 Course & Med Decision Making Course & Med Decision Making Pertinent Labs and Imaging studies reviewed. (See chart for details) The patient appears to be having a COPD exacerbation. Will get Chest x-ray, breathing treatment, labs. Will also get CT head as patient is reporting stroke symptoms that have been ongoing for 2 days. Did not give ASA as she is allergic to NSAIDS. Discussed with Dr. Gibson who agrees to admission. Labs are unremarkable pending tox. Will consult Neurology due to NIHSS score. Dragon Disclaimer Dragon Disclaimer This electronic medical record was generated, in whole or in part, using a voice recognition dictation system. Departure Departure Impression: Primary Impression: COPD exacerbation Additional Impression: Arm paresthesia, right Disposition: ADMITTED INPATIENT Admitting Physician: ROSAURA Condition: STABLE Referrals: LUCIO REDMOND (PCP) NIHSS Stroke Scale NIH Stroke Scale: NIH Stroke Scale Response (Comments) Value Level of Consciousness: 0 Alert/Responsive 0 LOC Questions: 0 Answers both correctly 0 LOC Commands: 0 Performs both tasks 0 Best Gaze: 0 Normal 0 Visual: 0 No visual loss 0 Facial Palsy: 1 Minor paralysis 1 Motor - Left Arm 0 No drift 0 Motor - Right Arm 1 Drifts but can hold 1 Motor - Left Leg 0 No drift 0 Motor: Right Leg 1 Drift but can hold 1 Limb Ataxia: 0 Absent 0 Sensory: 1 Mid to moderate loss 1 Best Language: 0 Normal 0 Dysathria: 0 Normal 0 Extinction and Inattention: 0 Normal 0 Total 4 Problem Qualifiers MAHESH STEIN APRN Mar 04, 2019 11:53
[2019-03-04] MEDS ORDERED: methylPREDNISolone SOD SUCC PF 125 MG/2 ML VIAL. IV ONE (12:15)
[2019-03-04] MEDS ORDERED: IPRATRPIUM/ALBUTEROL 0.5/2.5MG 3 ML NEBU. NEB ONE (12:15)
--- NOTE | 2019-03-04 12:26 | RAD ---
EXAM: Head CT without contrast. HISTORY: Left-sided weakness and numbness. TECHNIQUE: Computed tomographic images of the head were obtained without contrast. *One or more of the following individualized dose reduction techniques were utilized for this examination: 1. Automated exposure control. 2. Adjustment of the mA and/or kV according to patient size. 3. Use of iterative reconstruction technique. COMPARISON: None. FINDINGS: There is no acute or subacute extra-axial or intraparenchymal hemorrhage. There is no mass effect or midline shift. There is no hydrocephalus. There is mild frontal predominant cerebral volume loss. The soto-white matter differentiation pattern is intact. There is minimal ethmoid sinus mucosal thickening. There is a tiny amount of fluid within the mastoid air cells. No suspicious calvarial lesion is seen. IMPRESSION: No acute intracranial finding. Note is made that MRI is more sensitive for acute infarction. Electronically signed by: Vicky Godwin MD (03/04/2019 12:23 PM) [facility]
--- NOTE | 2019-03-04 13:16 | EKG ---
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
[2019-03-04 13:38] LABS: BASO # 0.1 x10^3/uL (0.0-0.2); BASO % 1 % (0-3); EOS # 0.1 x10^3/uL (0.0-0.7); EOS % 1 % (0-3); HEMATOCRIT 41.4 % (36.0-47.0); HEMOGLOBIN 13.5 g/dL (12.0-15.5); LYMPH # 2.7 x10^3/uL (1.0-4.8); LYMPH % 27 % (24-48); MEAN CORPUSCULAR HEMOGLOBIN 31 pg (25-35); MEAN CORPUSCULAR HGB CONC 33 g/dL (31-37); MEAN CORPUSCULAR VOLUME 96 fL (79-100); MONO # 0.5 x10^3/uL (0.0-1.1); MONO % 5 % (0-9); NEUT # 6.7 x10^3/uL (1.8-7.7); NEUT % 67 % (31-73); PLATELET COUNT 369 x10^3/uL (140-400); RED BLOOD COUNT 4.33 x10^6/uL (3.50-5.40); RED CELL DISTRIBUTION WIDTH 13.7 % (11.5-14.5); WHITE BLOOD COUNT 10.1 x10^3/uL (4.0-11.0)
[2019-03-04 14:49] LABS: PROTHROMBIN TIME PATIENT 12.8 SEC (11.7-14.0)
[2019-03-04 15:02] LABS: CALCIUM 9.1 mg/dL (8.5-10.1); CREATININE 0.8 mg/dL (0.6-1.0); GFR 90.1; POTASSIUM 3.7 mmol/L (3.5-5.1)
[2019-03-04 15:08] LABS: ALBUMIN 3.4 g/dL (3.4-5.0); ALBUMIN/GLOBULIN RATIO 0.9 (1.0-1.7); TOTAL BILIRUBIN 0.3 mg/dL (0.2-1.0); TOTAL PROTEIN 7.1 g/dL (6.4-8.2)
[2019-03-04] MEDS ORDERED: KETOROLAC 15 MG/ML VIAL. IV STA (16:35)
[2019-03-04] MEDS ORDERED: ONDANSETRON PF 4 MG/2 ML VIAL. IV PRN (17:00)
[2019-03-04] MEDS ORDERED: fentaNYL PF VIAL 100 MCG/2 ML VIAL IV STA (17:23)
[2019-03-04 17:32] LABS: AMPHETAMINE/METHAMPHETAMINE NEG (NEG); BARBITURATES NEG (NEG); BENZODIAZEPINES POS (NEG); CANNABINOIDS POS (NEG); COCAINE POS (NEG); METHADONE NEG (NEG); OPIATES NEG (NEG); PHENCYCLIDINE NEG (NEG)
[2019-03-04 17:36] LABS: BILIRUBIN,URINE NEGATIVE (NEG); CLARITY,URINE CLEAR; COLOR,URINE YELLOW; NITRITE,URINE NEGATIVE (NEG); PH,URINE 5.5; PROTEIN,URINE NEGATIVE (NEG-TRACE); UROBILINOGEN,URINE 0.2 mg/dL (0.2 mg/dL)
[2019-03-04 18:04] LABS: BACTERIA,URINE MANY /HPF (0-FEW); SQUAMOUS EPITHELIAL CELL,UR OCC /LPF
[2019-03-04] MEDS ORDERED: IPRATRPIUM/ALBUTEROL 0.5/2.5MG 3 ML NEBU. NEB SCH (20:00)
[2019-03-04 20:05] VITALS: BP 146/86
--- NOTE | 2019-03-04 20:30 | NUR ---
Patient failed bedside swallow due to slight left facial droop. She was told that she would need to be NPO until speech therapy could evaluate her. She became angry and said she would not comply with the NPO order and said she had already drank her tea that was in her bag. Dr. Gibson evaluated patient and ordered another bedside swallow, which had the same results. Order given to go ahead with a regular diet since patient had already been drinking and refuses NPO status.
[2019-03-04] MEDS ORDERED: oxyCODONE/APAP 5/325 1 TAB TABLET PO PRN (20:45)
[2019-03-04] MEDS ORDERED: ALBUTEROL SULFATE 2.5 MG/3 ML NEBU. INH PRN (20:45)
[2019-03-04] MEDS ORDERED: busPIRone 5 MG TABLET. PO PRN (20:45)
[2019-03-04] MEDS ORDERED: ASPIRIN 325 MG TABLET PO ONE (21:00)
[2019-03-04] MEDS ORDERED: PHENAZOPYRIDINE 200 MG TABLET. PO PRN (21:00)
[2019-03-04] MEDS ORDERED: ACETAMINOPHEN 500 MG TABLET PO SCH (21:00)
--- NOTE | 2019-03-04 21:02 | PDOC1 ---
History and Physical Date of Admission Date of Admission DATE: 03/04/19 TIME: 21:01 Identification/Chief Complaint Chief Complaint cough History of Present Illness History of Present Illness Ms Flood, is a 53 year old female came to the ER for dyspnea and cough, "coughing up green stuff for 2 weeks" some fever at home t 101 she has new right hand weakness, but this seems to fluctuate as we talked. She states that she was seen in urgent care clinic this afternoon Zyrtec hasn't taken of last week. She complains of weeks of right leg numbness, and now left facial weakness. pain 6/10, chronic back pain, She has a history of COPD. she reports having a lot of stress, with a recent of her nephew "he walked in front of a train" - she was alternately tearful and anxious Past Medical History Cardiovascular: HTN Pulmonary: COPD, Pneumonia Musculoskeletal: low back pain, Osteoarthritis Renal/: Other Past Surgical History Past Surgical History: No pertinent history Family History Family History: Hypertension Social History Smoke: <1 pack per day ALCOHOL: none Drugs: None (she denied any ellicits, her UDS tells cocaine, THC) Current Problem List Problem List Problems Medical Problems: (1) Arm paresthesia, right Status: Acute (2) COPD exacerbation Status: Acute Current Medications Current Medications Current Medications Albuterol/ Ipratropium (Duoneb) 3 ml 1X ONCE NEB Last administered on 03/04/19at 12:33; Start 03/04/19 at 12:15; Stop 03/04/19 at 12:16; Status DC Methylprednisolone Sodium Succinate (SOLU-Medrol 125MG VIAL) 125 mg 1X ONCE IV Last administered on 03/04/19at 14:08; Start 03/04/19 at 12:15; Stop 03/04/19 at 12:16; Status DC Ketorolac Tromethamine (Toradol 15mg Vial) 10 mg 1X STAT IV ; Start 03/04/19 at 16:35; Stop 03/04/19 at 16:36; Status DC Ondansetron HCl (Zofran) 4 mg PRN Q8HRS PRN IV NAUSEA/VOMITING Last admin istered on 03/04/19at 17:47; Start 03/04/19 at 17:00; Stop 03/05/19 at 16:59 Albuterol/ Ipratropium (Duoneb) 3 ml RTQID NEB Last administered on 03/04/19at 19:56; Start 03/04/19 at 20:00; Stop 03/04/19 at 20:44; Status DC Fentanyl Citrate (Fentanyl 2ml Vial) 50 mcg 1X STAT IV Last administered on 03/04/19at 17:47; Start 03/04/19 at 17:23; Stop 03/04/19 at 17:28; Status DC Oxycodone/ Acetaminophen (Percocet 5/325) 1 tab PRN Q4HRS PRN PO PAIN; Start 03/04/19 at 20:45 Albuterol/ Ipratropium (Duoneb) 3 ml Q4HRS W/A NEB ; Start 03/04/19 at 22:00 Acetaminophen (Tylenol) 500 mg BID PO ; Start 03/04/19 at 21:00 Albuterol Sulfate (Ventolin Neb Soln) 2.5 mg PRN Q6HRS PRN INH SHORTNESS OF BREATH; Start 03/04/19 at 20:45 Buspirone HCl (Buspar) 5 mg TID PRN PRN PO ANXIETY / AGITATION; Start 03/04/19 at 20:45 Lisinopril (Prinivil) 5 mg DAILY PO ; Start 03/05/19 at 09:00 Phenazopyridine HCl (Pyridium) 100 mg PRN TID PRN PO URINARY PAIN; Start 03/04/19 at 21:00 Ceftriaxone Sodium (Rocephin) 1 gm Q24H IVP ; Start 03/04/19 at 21:00 Active Scripts Active Pyridium (Phenazopyridine Hcl) 100 Mg Tablet 100 Mg PO TID Buspirone Hcl 5 Mg Tablet 1 Tab PO TID PRN PRN 30 Days Proair Hfa Inhaler (Albuterol Sulfate) 8.5 Gm Hfa.aer.ad 1 Puff INH PRN Q6HRS PRN 30 Days Albuterol Sulfate Neb Soln (Albuterol Sulfate) 2.5 Mg/3 Ml Vial.neb 1 Vial NEB PRN Q4HRS Reported Acetaminophen 500 Mg Tablet 1 Tab PO BID Stelara (Ustekinumab) 90 Mg/1 Ml Disp.syrin 90 Mg SQ PRN PRN Lisinopril 5 Mg Tablet 1 Tab PO DAILY Allergies Allergies: Coded Allergies: NSAIDS (Non-Steroidal Anti-Inflamma (Verified Allergy, Mild, stomach ache, 02/25/18) egg (Verified Allergy, Mild, vomiting, 02/25/18) ROS General: YES: Chills, Fatigue, Malaise; No: Night Sweats, Appetite, Other PSYCHOLOGICAL ROS: YES: Anxiety, Depression, Memory difficulties, Obsessive thoughts, Sleep disturbances, Suicidal ideation; No: Behavioral Disorder, Concentration difficultie, Decreased libido, Diso rientation, Hallucinations, Hostility, Irritablity, Mood Swings, Other Eyes: No Blurry vision, No Decreased vision, No Double vision, No Dry eyes, No Excessive tearing, No Eye Pain, No Itchy Eyes, No Loss of vision, No Photophobia, No Scotomata, No Uses contacts, No Uses glasses, No Other Respiratory: No: Cough, Hemoptysis, Orthopnea, Pleuritic Pain, Shortness of breath, SOB with excertion, Sputum Changes, Stridor, Tachypnea, Wheezing, Other Cardiovascular: No Chest Pain, No Palpitations, No Orthopnea, No Paroxysmal Noc. Dyspnea, No Edema, No Lt Headedness, No Other Gastrointestinal: Yes Nausea; No Vomiting, No Abdominal Pain, No Diarrhea, No Constipation, No Melena, No Hematochezia, No Other Genitourinary: No Dysuria, No Frequency, No Incontinence, No Hematuria, No Retention, No Discharge, No Urgency, No Pain, No Flank Pain, No Other, No , No , No , No , No , No , No Musculoskeletal: Yes Gait Disturbance, Yes Joint Pain, Yes Joint Stiffness, Yes Pain In: Neurological: Yes Gait Disturbance, Yes Numbness/Tingling, Yes Weakness; No Behavorial Changes, No Bowel/Bladder ControlChng, No Confusion, No Dizziness, No Headaches, No Impaired Coord/balance, No Memory Loss, No Seizures, No Speech Problems, No Tremors, No Visual Changes, No Other Skin: No Dry Skin, No Eczema, No Hair Changes, No Lumps, No Mole Changes, No Mottling, No Nail Changes, No Pruritus, No Rash, No Skin Lesion Changes, No Other, No Acne Physical Exam General: Alert, Oriented X3, Cooperative, mild distress HEENT: Atraumatic, EOMI, Mucous membr. moist/pink Lungs: Normal air movement Heart: no gallops, no murmurs Extremities: No cyanosis, No edema Skin: No rashes, No breakdown Neuro: Normal tone, Sensation intact, Other (right hand 4/5 str, but this changes, ) Psych/Mental Status: Mood NL Vitals Vitals Vital Signs Date Time Temp Pulse Resp B/P (MAP) Pulse Ox O2 Delivery O2 Flow Rate FiO2 03/04/19 19:57 94 Room Air 03/04/19 19:16 92 28 03/04/19 11:12 98.7 141/67 (91) 98.7 Labs Labs Laboratory Tests Test 03/04/19 13:09 03/04/19 14:30 03/04/19 17:15 White Blood Count 10.1 x10^3/uL (4.0-11.0) Red Blood Count 4.33 x10^6/uL (3.50-5.40) Hemoglobin 13.5 g/dL (12.0-15.5) Hematocrit 41.4 % (36.0-47.0) Mean Corpuscular Volume 96 fL (79-100) Mean Corpuscular Hemoglobin 31 pg (25-35) Mean Corpuscular Hemoglobin Concent 33 g/dL (31-37) Red Cell Distribution Width 13.7 % (11.5-14.5) Platelet Count 369 x10^3/uL (140-400) Neutrophils (%) (Auto) 67 % (31-73) Lymphocytes (%) (Auto) 27 % (24-48) Monocytes (%) (Auto) 5 % (0-9) Eosinophils (%) (Auto) 1 % (0-3) Basophils (%) (Auto) 1 % (0-3) Neutrophils # (Auto) 6.7 x10^3/uL (1.8-7.7) Lymphocytes # (Auto) 2.7 x10^3/uL (1.0-4.8) Monocytes # (Auto) 0.5 x10^3/uL (0.0-1.1) Eosinophils # (Auto) 0.1 x10^3/uL (0.0-0.7) Basophils # (Auto) 0.1 x10^3/uL (0.0-0.2) Lactic Acid Level 1.0 mmol/L (0.4-2.0) Troponin I Quantitative < 0.017 ng/mL (0.000-0.055) Ethyl Alcohol Level < 10 mg/dL (0-10) Prothrombin Time 12.8 SEC (11.7-14.0) Prothromb Time International Ratio 1.0 (0.8-1.1) Activated Partial Thromboplast Time 30 SEC (24-38) Sodium Level 147 mmol/L (136-145) Potassium Level 3.7 mmol/L (3.5-5.1) Chloride Level 109 mmol/L (98-107) Carbon Dioxide Level 28 mmol/L (21-32) Anion Gap 10 (6-14) Blood Urea Nitrogen 9 mg/dL (7-20) Creatinine 0.8 mg/dL (0.6-1.0) Estimated GFR (Cockcroft-Gault) 90.1 BUN/Creatinine Ratio 11 (6-20) Glucose Level 95 mg/dL (70-99) Calcium Level 9.1 mg/dL (8.5-10.1) Total Bilirubin 0.3 mg/dL (0.2-1.0) Aspartate Amino Transf (AST/SGOT) 14 U/L (15-37) Alanine Aminotransferase (ALT/SGPT) 16 U/L (14-59) Alkaline Phosphatase 67 U/L (46-116) Total Protein 7.1 g/dL (6.4-8.2) Albumin 3.4 g/dL (3.4-5.0) Albumin/Globulin Ratio 0.9 (1.0-1.7) Urine Color Yellow Urine Clarity Clear Urine pH 5.5 Urine Specific [place] 1.015 Urine Protein Negative mg/dL (NEG-TRACE) Urine Glucose (UA) Negative mg/dL (NEG) Urine Ketones (Stick) Negative mg/dL (NEG) Urine Blood Trace (NEG) Urine Nitrite Negative (NEG) Urine Bilirubin Negative (NEG) Urine Urobilinogen Dipstick 0.2 mg/dL (0.2 mg/dL) Urine Leukocyte Esterase Moderate (NEG) Urine RBC 1-2 /HPF (0-2) Urine WBC 11-20 /HPF (0-4) Urine Squamous Epithelial Cells Occ /LPF Urine Bacteria Many /HPF (0-FEW) Urine Opiates Screen Neg (NEG) Urine Methadone Screen Neg (NEG) Urine Barbiturates Neg (NEG) Urine Phencyclidine Screen Neg (NEG) Urine Amphetamine/Methamphetamine Neg (NEG) Urine Benzodiazepines Screen Pos (NEG) Urine Cocaine Screen Pos (NEG) Urine Cannabinoids Screen Pos (NEG) Urine Ethyl Alcohol Neg (NEG) Laboratory Tests Test 03/04/19 13:09 03/04/19 14:30 03/04/19 17:15 White Blood Count 10.1 x10^3/uL (4.0-11.0) Red Blood Count 4.33 x10^6/uL (3.50-5.40) Hemoglobin 13.5 g/dL (12.0-15.5) Hematocrit 41.4 % (36.0-47.0) Mean Corpuscular Volume 96 fL (79-100) Mean Corpuscular Hemoglobin 31 pg (25-35) Mean Corpuscular Hemoglobin Concent 33 g/dL (31-37) Red Cell Distribution Width 13.7 % (11.5-14.5) Platelet Count 369 x10^3/uL (140-400) Neutrophils (%) (Auto) 67 % (31-73) Lymphocytes (%) (Auto) 27 % (24-48) Monocytes (%) (Auto) 5 % (0-9) Eosinophils (%) (Auto) 1 % (0-3) Basophils (%) (Auto) 1 % (0-3) Neutrophils # (Auto) 6.7 x10^3/uL (1.8-7.7) Lymphocytes # (Auto) 2.7 x10^3/uL (1.0-4.8) Monocytes # (Auto) 0.5 x10^3/uL (0.0-1.1) Eosinophils # (Auto) 0.1 x10^3/uL (0.0-0.7) Basophils # (Auto) 0.1 x10^3/uL (0.0-0.2) Lactic Acid Level 1.0 mmol/L (0.4-2.0) Troponin I Quantitative < 0.017 ng/mL (0.000-0.055) Ethyl Alcohol Level < 10 mg/dL (0-10) Prothrombin Time 12.8 SEC (11.7-14.0) Prothromb Time International Ratio 1.0 (0.8-1.1) Activated Partial Thromboplast Time 30 SEC (24-38) Sodium Level 147 mmol/L (136-145) Potassium Level 3.7 mmol/L (3.5-5.1) Chloride Level 109 mmol/L (98-107) Carbon Dioxide Level 28 mmol/L (21-32) Anion Gap 10 (6-14) Blood Urea Nitrogen 9 mg/dL (7-20) Creatinine 0.8 mg/dL (0.6-1.0) Estimated GFR (Cockcroft-Gault) 90.1 BUN/Creatinine Ratio 11 (6-20) Glucose Level 95 mg/dL (70-99) Calcium Level 9.1 mg/dL (8.5-10.1) Total Bilirubin 0.3 mg/dL (0.2-1.0) Aspartate Amino Transf (AST/SGOT) 14 U/L (15-37) Alanine Aminotransferase (ALT/SGPT) 16 U/L (14-59) Alkaline Phosphatase 67 U/L (46-116) Total Protein 7.1 g/dL (6.4-8.2) Albumin 3.4 g/dL (3.4-5.0) Albumin/Globulin Ratio 0.9 (1.0-1.7) Urine Color Yellow Urine Clarity Clear Urine pH 5.5 Urine Specific [place] 1.015 Urine Protein Negative mg/dL (NEG-TRACE) Urine Glucose (UA) Negative mg/dL (NEG) Urine Ketones (Stick) Negative mg/dL (NEG) Urine Blood Trace (NEG) Urine Nitrite Negative (NEG) Urine Bilirubin Negative (NEG) Urine Urobilinogen Dipstick 0.2 mg/dL (0.2 mg/dL) Urine Leukocyte Esterase Moderate (NEG) Urine RBC 1-2 /HPF (0-2) Urine WBC 11-20 /HPF (0-4) Urine Squamous Epithelial Cells Occ /LPF Urine Bacteria Many /HPF (0-FEW) Urine Opiates Screen Neg (NEG) Urine Methadone Screen Neg (NEG) Urine Barbiturates Neg (NEG) Urine Phencyclidine Screen Neg (NEG) Urine Amphetamine/Methamphetamine Neg (NEG) Urine Benzodiazepines Screen Pos (NEG) Urine Cocaine Screen Pos (NEG) Urine Cannabinoids Screen Pos (NEG) Urine Ethyl Alcohol Neg (NEG) VTE Prophylaxis Ordered VTE Prophylaxis Devices: No VTE Pharmacological Prophylaxi: Yes Assessment/Plan Assessment/Plan cough, shortnessof breath, COPD with acute bronchitis right arm weakness, left facial weakness, she already was drinking fluids before i saw her, and about demanded to eat, PT and OT w/u TIA, polysubstance abuse, she denies, cocaine, THC, benzo pos, she reports taking hydrocodone at home, but that was neg on UDS PHYLLIS ENCARNACION MD Mar 04, 2019 21:02
[2019-03-04] MEDS ORDERED: CLOPIDOGREL BISULFATE 75 MG TABLET PO ONE (21:15)
[2019-03-04] MEDS: oxyCODONE IR 5 MG TABLET PO PRN (21:48)
[2019-03-04] MEDS: cefTRIAXone IV Push 1 GM VIAL. IVP SCH (21:49)
[2019-03-04] MEDS: IPRATRPIUM/ALBUTEROL 0.5/2.5MG 3 ML NEBU. NEB SCH (22:00)
[2019-03-04] MEDS: guaiFENesin/CODEINE 100mg/10mg 5 ML LIQUID PO PRN (22:12)
[2019-03-04] MEDS ORDERED: BENZONATATE 100 MG CAPSULE. PO ONE (22:15)
--- NOTE | 2019-03-04 23:00 | RAD ---
Carotid Doppler dated 03/04/2019. Comparison none. Clinical Indication: TIA. Findings: Grayscale, color flow and spectral waveform analysis was performed. No significant plaque or intimal thickening. No focal stenosis. The waveforms are within normal limits. Flow within the bilateral vertebral arteries is antegrade. Velocity measurements are as follows (centimeters per second ) Peak systolic velocity right left ICA 83 80 CCA 71 68 ECA 55 76 ICA/CCA ratio 1.1 1. Impression: No evidence of hemodynamically significant carotid stenosis. Stenosis calculations for carotid ultrasound studies are derived from validated velocity criteria which are known to correlate with the NASCET methodology. Electronically signed by: Christopher Prieto MD (03/04/2019 10:57 PM) [facility]
[2019-03-04 23:20] VITALS: BP 147/76
[2019-03-05] MEDS: fentaNYL PF VIAL 100 MCG/2 ML VIAL IVP PRN ×4 (00:22→21:04)
[2019-03-05] MEDS: oxyCODONE IR 5 MG TABLET PO PRN ×4 (02:44→20:57)
[2019-03-05 03:20] VITALS: BP 114/66
[2019-03-05 05:08] LABS: BASO % 0 % (0-3); EOS % 0 % (0-3); HEMATOCRIT 38.3 % (36.0-47.0); HEMOGLOBIN 12.4 g/dL (12.0-15.5); LYMPH # 1.1 x10^3/uL (1.0-4.8); LYMPH % 13 % (24-48); MEAN CORPUSCULAR HEMOGLOBIN 31 pg (25-35); MEAN CORPUSCULAR HGB CONC 33 g/dL (31-37); MEAN CORPUSCULAR VOLUME 96 fL (79-100); MONO # 0.2 x10^3/uL (0.0-1.1); MONO % 3 % (0-9); NEUT # 7.2 x10^3/uL (1.8-7.7); NEUT % 84 % (31-73); PLATELET COUNT 362 x10^3/uL (140-400); RED BLOOD COUNT 3.98 x10^6/uL (3.50-5.40); RED CELL DISTRIBUTION WIDTH 13.8 % (11.5-14.5); WHITE BLOOD COUNT 8.6 x10^3/uL (4.0-11.0)
[2019-03-05 06:03] LABS: ALBUMIN 3.4 g/dL (3.4-5.0); ALBUMIN/GLOBULIN RATIO 0.9 (1.0-1.7); CALCIUM 8.9 mg/dL (8.5-10.1); GFR 69.7; POTASSIUM 3.9 mmol/L (3.5-5.1); TOTAL BILIRUBIN 0.2 mg/dL (0.2-1.0); TOTAL PROTEIN 7.4 g/dL (6.4-8.2)
[2019-03-05 06:05] LABS: CHOLESTEROL/HDL RATIO 3.2
[2019-03-05 07:00] VITALS: BP 120/72
[2019-03-05] MEDS: guaiFENesin/CODEINE 100mg/10mg 5 ML LIQUID PO PRN ×3 (07:16→23:40)
[2019-03-05] MEDS: IPRATRPIUM/ALBUTEROL 0.5/2.5MG 3 ML NEBU. NEB SCH ×4 (07:19→20:05)
[2019-03-05] MEDS ORDERED: ASPIRIN 325 MG TABLET PO SCH (08:00)
[2019-03-05] MEDS: LISINOPRIL 5 MG TABLET. PO SCH (09:04)
[2019-03-05] MEDS: BENZONATATE 100 MG CAPSULE. PO SCH ×3 (09:04→20:57)
[2019-03-05] MEDS: predniSONE 20 MG TABLET PO SCH (09:04)
[2019-03-05 09:06] VITALS: BP 117/71
--- NOTE | 2019-03-05 09:28 | PDOC ---
PROGRESS NOTES Chief Complaint Chief Complaint cough, shortness of breath, COPD with acute bronchitis right arm weakness, left facial weakness, TIA depression, anxiety, prolonged bereavement, extended grief polysubstance abuse, she denies, cocaine, THC, benzo pos, she reports taking hydrocodone at home, but that was neg on UDS History of Present Illness History of Present Illness she again talked about her grief and loss and bereavement, Vitals Vitals Vital Signs Date Time Temp Pulse Resp B/P (MAP) Pulse Ox O2 Delivery O2 Flow Rate FiO2 03/05/19 09:06 93 117/71 (86) 03/05/19 09:00 Room Air 03/05/19 07:19 95 03/05/19 07:00 97.4 17 97.4 Physical Exam General: Alert, Oriented X3, Cooperative, No acute distress, mild distress Heart: Regular rate Lungs: Clear Abdomen: Normal bowel sounds Extremities: No cyanosis, No edema Skin: No rashes, No breakdown Labs LABS Laboratory Tests Test 03/04/19 13:09 03/04/19 14:30 03/04/19 17:15 03/05/19 03:32 White Blood Count 10.1 x10^3/uL (4.0-11.0) 8.6 x10^3/uL (4.0-11.0) Red Blood Count 4.33 x10^6/uL (3.50-5.40) 3.98 x10^6/uL (3.50-5.40) Hemoglobin 13.5 g/dL (12.0-15.5) 12.4 g/dL (12.0-15.5) Hematocrit 41.4 % (36.0-47.0) 38.3 % (36.0-47.0) Mean Corpuscular Volume 96 fL (79-100) 96 fL (79-100) Mean Corpuscular Hemoglobin 31 pg (25-35) 31 pg (25-35) Mean Corpuscular Hemoglobin Concent 33 g/dL (31-37) 33 g/dL (31-37) Red Cell Distribution Width 13.7 % (11.5-14.5) 13.8 % (11.5-14.5) Platelet Count 369 x10^3/uL (140-400) 362 x10^3/uL (140-400) Neutrophils (%) (Auto) 67 % (31-73) 84 % (31-73) Lymphocytes (%) (Auto) 27 % (24-48) 13 % (24-48) Monocytes (%) (Auto) 5 % (0-9) 3 % (0-9) Eosinophils (%) (Auto) 1 % (0-3) 0 % (0-3) Basophils (%) (Auto) 1 % (0-3) 0 % (0-3) Neutrophils # (Auto) 6.7 x10^3/uL (1.8-7.7) 7.2 x10^3/uL (1.8-7.7) Lymphocytes # (Auto) 2.7 x10^3/uL (1.0-4.8) 1.1 x10^3/uL (1.0-4.8) Monocytes # (Auto) 0.5 x10^3/uL (0.0-1.1) 0.2 x10^3/uL (0.0-1.1) Eosinophils # (Auto) 0.1 x10^3/uL (0.0-0.7) 0.0 x10^3/uL (0.0-0.7) Basophils # (Auto) 0.1 x10^3/uL (0.0-0.2) 0.0 x10^3/uL (0.0-0.2) Lactic Acid Level 1.0 mmol/L (0.4-2.0) Troponin I Quantitative < 0.017 ng/mL (0.000-0.055) Ethyl Alcohol Level < 10 mg/dL (0-10) Prothrombin Time 12.8 SEC (11.7-14.0) Prothromb Time International Ratio 1.0 (0.8-1.1) Activated Partial Thromboplast Time 30 SEC (24-38) Sodium Level 147 mmol/L (136-145) 141 mmol/L (136-145) Potassium Level 3.7 mmol/L (3.5-5.1) 3.9 mmol/L (3.5-5.1) Chloride Level 109 mmol/L (98-107) 103 mmol/L (98-107) Carbon Dioxide Level 28 mmol/L (21-32) 26 mmol/L (21-32) Anion Gap 10 (6-14) 12 (6-14) Blood Urea Nitrogen 9 mg/dL (7-20) 10 mg/dL (7-20) Creatinine 0.8 mg/dL (0.6-1.0) 1.0 mg/dL (0.6-1.0) Estimated GFR (Cockcroft-Gault) 90.1 69.7 BUN/Creatinine Ratio 11 (6-20) 10 (6-20) Glucose Level 95 mg/dL (70-99) 175 mg/dL (70-99) Calcium Level 9.1 mg/dL (8.5-10.1) 8.9 mg/dL (8.5-10.1) Total Bilirubin 0.3 mg/dL (0.2-1.0) 0.2 mg/dL (0.2-1.0) Aspartate Amino Transf (AST/SGOT) 14 U/L (15-37) 13 U/L (15-37) Alanine Aminotransferase (ALT/SGPT) 16 U/L (14-59) 15 U/L (14-59) Alkaline Phosphatase 67 U/L (46-116) 69 U/L (46-116) Total Protein 7.1 g/dL (6.4-8.2) 7.4 g/dL (6.4-8.2) Albumin 3.4 g/dL (3.4-5.0) 3.4 g/dL (3.4-5.0) Albumin/Globulin Ratio 0.9 (1.0-1.7) 0.9 (1.0-1.7) Urine Color Yellow Urine Clarity Clear Urine pH 5.5 Urine Specific Crucible 1.015 Urine Protein Negative mg/dL (NEG-TRACE) Urine Glucose (UA) Negative mg/dL (NEG) Urine Ketones (Stick) Negative mg/dL (NEG) Urine Blood Trace (NEG) Urine Nitrite Negative (NEG) Urine Bilirubin Negative (NEG) Urine Urobilinogen Dipstick 0.2 mg/dL (0.2 mg/dL) Urine Leukocyte Esterase Moderate (NEG) Urine RBC 1-2 /HPF (0-2) Urine WBC 11-20 /HPF (0-4) Urine Squamous Epithelial Cells Occ /LPF Urine Bacteria Many /HPF (0-FEW) Urine Opiates Screen Neg (NEG) Urine Methadone Screen Neg (NEG) Urine Barbiturates Neg (NEG) Urine Phencyclidine Screen Neg (NEG) Urine Amphetamine/Methamphetamine Neg (NEG) Urine Benzodiazepines Screen Pos (NEG) Urine Cocaine Screen Pos (NEG) Urine Cannabinoids Screen Pos (NEG) Urine Ethyl Alcohol Neg (NEG) Triglycerides Level 44 mg/dL (0-150) Cholesterol Level 178 mg/dL (0-200) LDL Cholesterol, Calculated 114 mg/dL (0-100) VLDL Cholesterol, Calculated 9 mg/dL (0-40) Non-HDL Cholesterol Calculated 123 mg/dL (0-129) HDL Cholesterol 55 mg/dL (40-60) Cholesterol/HDL Ratio 3.2 Review of Systems Review of Systems no n.v.d str better breathing at baseline Assessment and Plan Assessmemt and Plan Problems Medical Problems: (1) Arm paresthesia, right Status: Acute (2) COPD exacerbation Status: Acute (3) COPD with acute bronchitis Status: Acute (4) Cough Status: Acute (5) Right arm weakness Status: Acute (6) SOB (shortness of breath) Status: Acute (7) Weakness on left side of face Status: Acute Comment Review of Relevant I have reviewed the following items chris (where applicable) has been applied. Labs Laboratory Tests Test 03/04/19 13:09 03/04/19 14:30 03/04/19 17:15 03/05/19 03:32 White Blood Count 10.1 x10^3/uL (4.0-11.0) 8.6 x10^3/uL (4.0-11.0) Red Blood Count 4.33 x10^6/uL (3.50-5.40) 3.98 x10^6/uL (3.50-5.40) Hemoglobin 13.5 g/dL (12.0-15.5) 12.4 g/dL (12.0-15.5) Hematocrit 41.4 % (36.0-47.0) 38.3 % (36.0-47.0) Mean Corpuscular Volume 96 fL (79-100) 96 fL (79-100) Mean Corpuscular Hemoglobin 31 pg (25-35) 31 pg (25-35) Mean Corpuscular Hemoglobin Concent 33 g/dL (31-37) 33 g/dL (31-37) Red Cell Distribution Width 13.7 % (11.5-14.5) 13.8 % (11.5-14.5) Platelet Count 369 x10^3/uL (140-400) 362 x10^3/uL (140-400) Neutrophils (%) (Auto) 67 % (31-73) 84 % (31-73) Lymphocytes (%) (Auto) 27 % (24-48) 13 % (24-48) Monocytes (%) (Auto) 5 % (0-9) 3 % (0-9) Eosinophils (%) (Auto) 1 % (0-3) 0 % (0-3) Basophils (%) (Auto) 1 % (0-3) 0 % (0-3) Neutrophils # (Auto) 6.7 x10^3/uL (1.8-7.7) 7.2 x10^3/uL (1.8-7.7) Lymphocytes # (Auto) 2.7 x10^3/uL (1.0-4.8) 1.1 x10^3/uL (1.0-4.8) Monocytes # (Auto) 0.5 x10^3/uL (0.0-1.1) 0.2 x10^3/uL (0.0-1.1) Eosinophils # (Auto) 0.1 x10^3/uL (0.0-0.7) 0.0 x10^3/uL (0.0-0.7) Basophils # (Auto) 0.1 x10^3/uL (0.0-0.2) 0.0 x10^3/uL (0.0-0.2) Lactic Acid Level 1.0 mmol/L (0.4-2.0) Troponin I Quantitative < 0.017 ng/mL (0.000-0.055) Ethyl Alcohol Level < 10 mg/dL (0-10) Prothrombin Time 12.8 SEC (11.7-14.0) Prothromb Time International Ratio 1.0 (0.8-1.1) Activated Partial Thromboplast Time 30 SEC (24-38) Sodium Level 147 mmol/L (136-145) 141 mmol/L (136-145) Potassium Level 3.7 mmol/L (3.5-5.1) 3.9 mmol/L (3.5-5.1) Chloride Level 109 mmol/L (98-107) 103 mmol/L (98-107) Carbon Dioxide Level 28 mmol/L (21-32) 26 mmol/L (21-32) Anion Gap 10 (6-14) 12 (6-14) Blood Urea Nitrogen 9 mg/dL (7-20) 10 mg/dL (7-20) Creatinine 0.8 mg/dL (0.6-1.0) 1.0 mg/dL (0.6-1.0) Estimated GFR (Cockcroft-Gault) 90.1 69.7 BUN/Creatinine Ratio 11 (6-20) 10 (6-20) Glucose Level 95 mg/dL (70-99) 175 mg/dL (70-99) Calcium Level 9.1 mg/dL (8.5-10.1) 8.9 mg/dL (8.5-10.1) Total Bilirubin 0.3 mg/dL (0.2-1.0) 0.2 mg/dL (0.2-1.0) Aspartate Amino Transf (AST/SGOT) 14 U/L (15-37) 13 U/L (15-37) Alanine Aminotransferase (ALT/SGPT) 16 U/L (14-59) 15 U/L (14-59) Alkaline Phosphatase 67 U/L (46-116) 69 U/L (46-116) Total Protein 7.1 g/dL (6.4-8.2) 7.4 g/dL (6.4-8.2) Albumin 3.4 g/dL (3.4-5.0) 3.4 g/dL (3.4-5.0) Albumin/Globulin Ratio 0.9 (1.0-1.7) 0.9 (1.0-1.7) Urine Color Yellow Urine Clarity Clear Urine pH 5.5 Urine Specific Crucible 1.015 Urine Protein Negative mg/dL (NEG-TRACE) Urine Glucose (UA) Negative mg/dL (NEG) Urine Ketones (Stick) Negative mg/dL (NEG) Urine Blood Trace (NEG) Urine Nitrite Negative (NEG) Urine Bilirubin Negative (NEG) Urine Urobilinogen Dipstick 0.2 mg/dL (0.2 mg/dL) Urine Leukocyte Esterase Moderate (NEG) Urine RBC 1-2 /HPF (0-2) Urine WBC 11-20 /HPF (0-4) Urine Squamous Epithelial Cells Occ /LPF Urine Bacteria Many /HPF (0-FEW) Urine Opiates Screen Neg (NEG) Urine Methadone Screen Neg (NEG) Urine Barbiturates Neg (NEG) Urine Phencyclidine Screen Neg (NEG) Urine Amphetamine/Methamphetamine Neg (NEG) Urine Benzodiazepines Screen Pos (NEG) Urine Cocaine Screen Pos (NEG) Urine Cannabinoids Screen Pos (NEG) Urine Ethyl Alcohol Neg (NEG) Triglycerides Level 44 mg/dL (0-150) Cholesterol Level 178 mg/dL (0-200) LDL Cholesterol, Calculated 114 mg/dL (0-100) VLDL Cholesterol, Calculated 9 mg/dL (0-40) Non-HDL Cholesterol Calculated 123 mg/dL (0-129) HDL Cholesterol 55 mg/dL (40-60) Cholesterol/HDL Ratio 3.2 Laboratory Tests Test 03/04/19 13:09 03/04/19 14:30 03/04/19 17:15 03/05/19 03:32 White Blood Count 10.1 x10^3/uL (4.0-11.0) 8.6 x10^3/uL (4.0-11.0) Red Blood Count 4.33 x10^6/uL (3.50-5.40) 3.98 x10^6/uL (3.50-5.40) Hemoglobin 13.5 g/dL (12.0-15.5) 12.4 g/dL (12.0-15.5) Hematocrit 41.4 % (36.0-47.0) 38.3 % (36.0-47.0) Mean Corpuscular Volume 96 fL (79-100) 96 fL (79-100) Mean Corpuscular Hemoglobin 31 pg (25-35) 31 pg (25-35) Mean Corpuscular Hemoglobin Concent 33 g/dL (31-37) 33 g/dL (31-37) Red Cell Distribution Width 13.7 % (11.5-14.5) 13.8 % (11.5-14.5) Platelet Count 369 x10^3/uL (140-400) 362 x10^3/uL (140-400) Neutrophils (%) (Auto) 67 % (31-73) 84 % (31-73) Lymphocytes (%) (Auto) 27 % (24-48) 13 % (24-48) Monocytes (%) (Auto) 5 % (0-9) 3 % (0-9) Eosinophils (%) (Auto) 1 % (0-3) 0 % (0-3) Basophils (%) (Auto) 1 % (0-3) 0 % (0-3) Neutrophils # (Auto) 6.7 x10^3/uL (1.8-7.7) 7.2 x10^3/uL (1.8-7.7) Lymphocytes # (Auto) 2.7 x10^3/uL (1.0-4.8) 1.1 x10^3/uL (1.0-4.8) Monocytes # (Auto) 0.5 x10^3/uL (0.0-1.1) 0.2 x10^3/uL (0.0-1.1) Eosinophils # (Auto) 0.1 x10^3/uL (0.0-0.7) 0.0 x10^3/uL (0.0-0.7) Basophils # (Auto) 0.1 x10^3/uL (0.0-0.2) 0.0 x10^3/uL (0.0-0.2) Lactic Acid Level 1.0 mmol/L (0.4-2.0) Troponin I Quantitative < 0.017 ng/mL (0.000-0.055) Ethyl Alcohol Level < 10 mg/dL (0-10) Prothrombin Time 12.8 SEC (11.7-14.0) Prothromb Time International Ratio 1.0 (0.8-1.1) Activated Partial Thromboplast Time 30 SEC (24-38) Sodium Level 147 mmol/L (136-145) 141 mmol/L (136-145) Potassium Level 3.7 mmol/L (3.5-5.1) 3.9 mmol/L (3.5-5.1) Chloride Level 109 mmol/L (98-107) 103 mmol/L (98-107) Carbon Dioxide Level 28 mmol/L (21-32) 26 mmol/L (21-32) Anion Gap 10 (6-14) 12 (6-14) Blood Urea Nitrogen 9 mg/dL (7-20) 10 mg/dL (7-20) Creatinine 0.8 mg/dL (0.6-1.0) 1.0 mg/dL (0.6-1.0) Estimated GFR (Cockcroft-Gault) 90.1 69.7 BUN/Creatinine Ratio 11 (6-20) 10 (6-20) Glucose Level 95 mg/dL (70-99) 175 mg/dL (70-99) Calcium Level 9.1 mg/dL (8.5-10.1) 8.9 mg/dL (8.5-10.1) Total Bilirubin 0.3 mg/dL (0.2-1.0) 0.2 mg/dL (0.2-1.0) Aspartate Amino Transf (AST/SGOT) 14 U/L (15-37) 13 U/L (15-37) Alanine Aminotransferase (ALT/SGPT) 16 U/L (14-59) 15 U/L (14-59) Alkaline Phosphatase 67 U/L (46-116) 69 U/L (46-116) Total Protein 7.1 g/dL (6.4-8.2) 7.4 g/dL (6.4-8.2) Albumin 3.4 g/dL (3.4-5.0) 3.4 g/dL (3.4-5.0) Albumin/Globulin Ratio 0.9 (1.0-1.7) 0.9 (1.0-1.7) Urine Color Yellow Urine Clarity Clear Urine pH 5.5 Urine Specific Crucible 1.015 Urine Protein Negative mg/dL (NEG-TRACE) Urine Glucose (UA) Negative mg/dL (NEG) Urine Ketones (Stick) Negative mg/dL (NEG) Urine Blood Trace (NEG) Urine Nitrite Negative (NEG) Urine Bilirubin Negative (NEG) Urine Urobilinogen Dipstick 0.2 mg/dL (0.2 mg/dL) Urine Leukocyte Esterase Moderate (NEG) Urine RBC 1-2 /HPF (0-2) Urine WBC 11-20 /HPF (0-4) Urine Squamous Epithelial Cells Occ /LPF Urine Bacteria Many /HPF (0-FEW) Urine Opiates Screen Neg (NEG) Urine Methadone Screen Neg (NEG) Urine Barbiturates Neg (NEG) Urine Phencyclidine Screen Neg (NEG) Urine Amphetamine/Methamphetamine Neg (NEG) Urine Benzodiazepines Screen Pos (NEG) Urine Cocaine Screen Pos (NEG) Urine Cannabinoids Screen Pos (NEG) Urine Ethyl Alcohol Neg (NEG) Triglycerides Level 44 mg/dL (0-150) Cholesterol Level 178 mg/dL (0-200) LDL Cholesterol, Calculated 114 mg/dL (0-100) VLDL Cholesterol, Calculated 9 mg/dL (0-40) Non-HDL Cholesterol Calculated 123 mg/dL (0-129) HDL Cholesterol 55 mg/dL (40-60) Cholesterol/HDL Ratio 3.2 Medications Current Medications Albuterol/ Ipratropium (Duoneb) 3 ml 1X ONCE NEB Last administered on 03/04/19at 12:33; Start 03/04/19 at 12:15; Stop 03/04/19 at 12:16; Status DC Methylprednisolone Sodium Succinate (SOLU-Medrol 125MG VIAL) 125 mg 1X ONCE IV Last administered on 03/04/19at 14:08; Start 03/04/19 at 12:15; Stop 03/04/19 at 12:16; Status DC Ketorolac Tromethamine (Toradol 15mg Vial) 10 mg 1X STAT IV ; Start 03/04/19 at 16:35; Stop 03/04/19 at 16:36; Status DC Ondansetron HCl (Zofran) 4 mg PRN Q8HRS PRN IV NAUSEA/VOMITING Last administered on 03/04/19at 17:47; Start 03/04/19 at 17:00; Stop 03/05/19 at 16:59 Albuterol/ Ipratropium (Duoneb) 3 ml RTQID NEB Last administered on 03/04/19at 19:56; Start 03/04/19 at 20:00; Stop 03/04/19 at 20:44; Status DC Fentanyl Citrate (Fentanyl 2ml Vial) 50 mcg 1X STAT IV Last administered on 03/04/19at 17:47; Start 03/04/19 at 17:23; Stop 03/04/19 at 17:28; Status DC Oxycodone/ Acetaminophen (Percocet 5/325) 1 tab PRN Q4HRS PRN PO PAIN; Start 03/04/19 at 20:45; Stop 03/04/19 at 21:17; Status DC Albuterol/ Ipratropium (Duoneb) 3 ml Q4HRS W/A NEB Last administered on 03/05/19at 07:19; Start 03/04/19 at 22:00 Acetaminophen (Tylenol) 500 mg BID PO ; Start 03/04/19 at 21:00; Stop 03/04/19 at 21:17; Status DC Albuterol Sulfate (Ventolin Neb Soln) 2.5 mg PRN Q6HRS PRN INH SHORTNESS OF BREATH; Start 03/04/19 at 20:45 Buspirone HCl (Buspar) 5 mg TID PRN PRN PO ANXIETY / AGITATION; Start 03/04/19 at 20:45 Lisinopril (Prinivil) 5 mg DAILY PO Last administered on 03/05/19at 09:04; Star t 03/05/19 at 09:00 Phenazopyridine HCl (Pyridium) 100 mg PRN TID PRN PO URINARY PAIN; Start 03/04/19 at 21:00 Ceftriaxone Sodium (Rocephin) 1 gm Q24H IVP Last administered on 03/04/19at 21:49; Start 03/04/19 at 21:00 Aspirin ([email or web address] Aspirin) 325 mg 1X ONCE PO ; Start 03/04/19 at 21:00; Stop 03/04/19 at 21:17; Status DC Aspirin ([email or web address] Aspirin) 325 mg DAILYWBKFT PO ; Start 03/05/19 at 08:00; Stop 03/04/19 at 22:05; Status DC Fentanyl Citrate (Fentanyl 2ml Vial) 50 mcg PRN Q4HRS PRN IVP PAIN Last administered on 03/05/19at 09:00; Start 03/04/19 at 21:00 Oxycodone HCl (Roxicodone) 5 mg Q4HRS PRN PO PAIN Last administered on 03/05/19a t 07:16; Start 03/04/19 at 21:15 Clopidogrel Bisulfate (Plavix) 75 mg 1X ONCE PO Last administered on 03/04/19at 21:48; Start 03/04/19 at 21:15; Stop 03/04/19 at 21:18; Status DC Benzonatate (Tessalon Perle) 100 mg [id number] PO Last administered on 03/05/19at 09:04; Start 03/05/19 at 09:00 Benzonatate (Tessalon Perle) 100 mg 1X ONCE PO Last administered on 03/04/19at 22:12; Start 03/04/19 at 22:15; Stop 03/04/19 at 22:16; Status DC Guaifenesin/ Codeine Phosphate (Robitussin Ac) 5 ml PRN Q6HRS PRN PO COUGH Last administered on 03/05/19at 07:16; Start 03/04/19 at 22:15 Prednisone (Prednisone) 40 mg DAILY PO Last administered on 03/05/19at 09:04; Start 03/05/19 at 09:00 Active Scripts Active Pyridium (Phenazopyridine Hcl) 100 Mg Tablet 100 Mg PO TID Buspirone Hcl 5 Mg Tablet 1 Tab PO TID PRN PRN 30 Days Proair Hfa Inhaler (Albuterol Sulfate) 8.5 Gm Hfa.aer.ad 1 Puff INH PRN Q6HRS PRN 30 Days Albuterol Sulfate Neb Soln (Albuterol Sulfate) 2.5 Mg/3 Ml Vial.neb 1 Vial NEB PRN Q4HRS Reported Acetaminophen 500 Mg Tablet 1 Tab PO BID Stelara (Ustekinumab) 90 Mg/1 Ml Disp.syrin 90 Mg SQ PRN PRN Lisinopril 5 Mg Tablet 1 Tab PO DAILY Vitals/I & O Vital Sign - Last 24 Hours 03/04/19 03/04/19 03/04/19 03/04/19 11:12 12:57 14:16 15:16 Temp 98.7 98.7 Pulse 97 94 92 88 Resp 16 16 16 16 B/P (MAP) 141/67 (91) Pulse Ox 97 93 93 93 O2 Delivery Room Air 03/04/19 03/04/19 03/04/19 03/04/19 16:16 16:46 17:46 18:16 Pulse 87 94 96 92 Resp 18 23 22 24 Pulse Ox 94 96 96 96 03/04/19 03/04/19 03/04/19 03/04/19 18:46 19:16 19:57 20:05 Temp 98.0 98.0 Pulse 92 92 93 Resp 28 28 18 B/P (MAP) 146/86 (106) Pulse Ox 95 95 94 94 O2 Delivery Room Air Room Air 11/08/1703/04/19 03/04/19 03/05/19 21:48 22:48 23:20 00:22 Temp 97.8 97.8 Pulse 114 Resp 18 19 B/P (MAP) 147/76 (99) Pulse Ox 94 94 94 94 O2 Delivery Room Air 03/05/19 03/05/19 03/05/19 03/05/19 00:52 02:44 03:20 03:44 Temp 97.9 97.9 Pulse 99 Resp 19 17 17 B/P (MAP) 114/66 (82) Pulse Ox 94 94 95 94 O2 Delivery Room Air Room Air 03/05/19 03/05/19 03/05/19 03/05/19 07:00 07:16 07:19 09:00 Temp 97.4 97.4 Pulse 83 Resp 17 B/P (MAP) 120/72 (88) Pulse Ox 96 94 95 O2 Delivery Room Air Room Air Room Air 03/05/19 03/05/19 09:04 09:06 Pulse 93 93 B/P (MAP) 117/71 117/71 (86) Intake and Output 03/04/19 03/04/19 03/05/19 15:00 23:00 07:00 Intake Total 1100 ml Balance 1100 ml PHYLLIS ENCARNACION MD Mar 05, 2019 09:27
--- NOTE | 2019-03-05 09:42 | CARD ---
MR#: [id number] Date of Study: 03/05/2019 Ordering Physician: PHYLLIS ENCARNACION, Referring Physician: PHYLLIS ENCARNACION, Tech: Torrie Bond SARAH APPROVED REPORT EXAM: Two-dimensional and M-mode echocardiogram with Doppler and color Doppler. Other Information Quality : AverageHR: 88bpm Rhythm : NSRTechnically limited study due to body habitus. INDICATION CVA/TIA 2D DIMENSIONS RVDd3.2 (2.9-3.5cm)Left Atrium(2D)3.0 (1.6-4.0cm) IVSd0.9 (0.7-1.1cm)Aortic Root(2D)2.6 (2.0-3.7cm) LVDd4.8 (3.9-5.9cm)LVOT Diameter1.9 (1.8-2.4cm) PWd0.7 (0.7-1.1cm)LVDs3.4 (2.5-4.0cm) FS (%) 29.8 %SV60.7 ml LVEF(%)56.8 (>50%) M-Mode DIMENSIONS Aortic Root3.26 (2.2-3.7cm) Aortic Valve AoV Peak Dinesh.123.4cm/sAoV VTI20.4cm AO Peak GR.6.1mmHgLVOT VTI 11.93cm AO Mean GR.3mmHgAVA (VTI)1.70cm2 Mitral Valve MV E Avfapwxl56.4cm/sMV DECEL [id number] MV A Wskthaqa77.7cm/sE/A Ratio0.9 MV A [id number] TDI Lateral E' P. V11.04cm/sMedial E' P. V11.60cm/s E/Lateral E'7.2E/Medial E'6.8 LEFT VENTRICLE The left ventricle is normal size. There is normal left ventricular wall thickness. The left ventricu lar systolic function is normal and the ejection fraction is within normal range. The Ejection Fracti on is 55-60%. There is normal LV segmental wall motion. Transmitral Doppler flow pattern is Grade I-a bnormal relaxation pattern. RIGHT VENTRICLE The right ventricle is normal size. There is normal right ventricular wall thickness. The right ventr icular systolic function is normal. ATRIA The left atrium size is normal. The right atrium size is normal. The interatrial septum is intact wit h no evidence for an atrial septal defect or patent foramen ovale as noted on 2-D or Doppler imaging. AORTIC VALVE The aortic valve is normal in structure and function. The aortic valve is trileaflet. Doppler and Col or Flow revealed no significant aortic regurgitation. There is no significant aortic valvular stenosi s. There is no aortic valvular vegetation. MITRAL VALVE The mitral valve is thickened but opens well. There is no evidence of mitral valve prolapse. There is no mitral valve stenosis. Doppler and Color-flow revealed trace mitral regurgitation. TRICUSPID VALVE The tricuspid valve is normal in structure and function. Doppler and Color Flow revealed no tricuspid valve regurgitation noted. There is no tricuspid valve prolapse or vegetation. There is no tricuspid valve stenosis. PULMONIC VALVE The pulmonic valve is not well visualized. GREAT VESSELS The aortic root is normal in size. The ascending aorta is normal in size. The IVC is normal in size a nd collapses >50% with inspiration. PERICARDIAL EFFUSION There is no evidence of significant pericardial effusion. Critical Notification Critical Value: No <Conclusion> The left ventricular systolic function is normal and the ejection fraction is within normal range. Th e Ejection Fraction is 55-60%. There is normal LV segmental wall motion. Signed by : Alexander Hurley, Electronically Approved : 03/05/2019 09:42:43
--- NOTE | 2019-03-05 12:45 | RAD ---
MRI of the brain without contrast 03/05/2019 Clinical History: Left-sided facial and right-sided arm and leg numbness and weakness. Technique: Unenhanced T1-weighted sagittal and axial, T2-weighted axial and coronal and FLAIR, gradient echo and diffusion-weighted axial images of the brain were obtained. Findings: Comparison is made to the patient's CT scan of the head dated 03/04/2019. Images from this study are degraded by patient motion. There is mild generalized parenchymal atrophy. Patchy and several small focal areas of increased signal intensity are seen within the periventricular and subcortical white matter of both cerebral hemispheres along with the ramírez on the FLAIR and T2-weighted images consistent most likely with areas of relatively mild small vessel ischemic disease. No acute parenchymal abnormality is seen. No extra-axial fluid collection is seen. There is no MRI evidence of acute ischemia/infarction. Mild mucosal thickening in seen scattered throughout the paranasal sinuses. Normal flow voids are seen within the major vascular structures surrounding the brain parenchyma. Impression: No acute parenchymal abnormality is seen. Electronically signed by: Nacho Francis MD (03/05/2019 12:42 PM) [id number]
[2019-03-05 15:00] VITALS: BP 119/95
--- NOTE | 2019-03-05 16:16 | PDOC2 ---
NEUROLOGY CONSULT Date of Admission Date of Admission DATE: 03/05/19 TIME: 16:07 Reason for Consult Reason for Consult: IMPRESSION: Right side numbness and weakness. Left side facial weakness. Fever. Cough. COPD. HTN. HLD. Cocaine positive. Marijuana positive. Benzo positive. Psychiatric issues. No evidence of acute CVA this time. RECOMMENDATIONS/PLAN: ASA daily. Lipitor 10 mg HS. Treat medical diseases. See Psychiatry. FU with PCP. History of Present Illness This is a 53 -year-old AA female patient who came to the ER complaining dyspnea and cough, "coughing up green stuff for 2 weeks" and had some fever at home to 101 degree. She complained left side facial numbness and right side UE and LE numbness and weakness, so Neurology was requested for consultation. Further evaluation ruled out acute CVA. Past Medical History Cardiovascular: HTN Pulmonary: COPD, Pneumonia Musculoskeletal: low back pain, Osteoarthritis Renal/: Other Past Surgical History No major surgery recently. Family History Hypertension Social History Smoke: <1 pack per day ALCOHOL: none Drugs: She denied any ellicits, her UDS tells cocaine, THC. Allergies Coded Allergies: NSAIDS (Non-Steroidal Anti-Inflamma (Verified Allergy, Mild, stomach ache, 02/25/18) egg (Verified Allergy, Mild, vomiting, 02/25/18) MEDICATIONS: Refer to MAR REVIEW OF SYSTEMS: Constitutional: No malnutrition, weight loss, cachexia. Head: No recent traumatic brain or head injury. Skin: No edema, or rash. Ear: No infection. Eyes: No vision loss or color blindness. Nose: No bleeding or purulent discharges. Hearing: No hearing decrease. Neck: No injury. Breast: No history of cancer, masses,or discharges. Cardiac: HTN, HLD. Pulmonary: COPD. GI: No GI ulcer, GI bleeding. Urinary/genital: No dysuria, incontinence, urinary retention. Endocrinologic: No cousin face, craniofacial dysmorphism, polydactyly. Skeletomuscular: No muscular atrophy, deformity. Neurological: see HP. Psychiatric: Denies drug use/abuse. Otherwise, not [id number] review of systems. PHYSICAL EXAMINATION: HEENT: Normocephalic and nontraumatic. Eyes, nose, ears, and throat are unremarkable. Neck is supple. No lymphadenopathy. No crepitus. Cardiovascular: S1, S2, regular rate and rhythm. Pulmonary: Clear to auscultation bilaterally. Abdomen: Bowel sounds are positive. Abdomen is soft, nontender, and nondistended. Extremities: No rash, lesions, or edema. No restriction of range of motion NEUROLOGICAL EXAMINATION: Alert Oriented to time, place and person. PERRL. EOMI. CN: no focal findings. Muscle tone: within normal. Muscle strength: 5 DTR: 2 Plantar reflex: Flexor response bilaterally Gait: not examined while in bed. Sensory exam: no abnormal findings. No cerebellar signs elicited. F-T-N test accurate. Current Medications Current Medications Current Medications Albuterol/ Ipratropium (Duoneb) 3 ml 1X ONCE NEB Last administered on 03/04/19at 12:33; Start 03/04/19 at 12:15; Stop 03/04/19 at 12:16; Status DC Methylprednisolone Sodium Succinate (SOLU-Medrol 125MG VIAL) 125 mg 1X ONCE IV Last administered on 03/04/19at 14:08; Start 03/04/19 at 12:15; Stop 03/04/19 at 12:16; Status DC Ketorolac Tromethamine (Toradol 15mg Vial) 10 mg 1X STAT IV ; Start 03/04/19 at 16:35; Stop 03/04/19 at 16:36; Status DC Ondansetron HCl (Zofran) 4 mg PRN Q8HRS PRN IV NAUSEA/VOMITING Last administered on 03/04/19at 17:47; Start 03/04/19 at 17:00; Stop 03/05/19 at 16:59 Albuterol/ Ipratropium (Duoneb) 3 ml RTQID NEB Last administered on 03/04/19at 19:56; Start 03/04/19 at 20:00; Stop 03/04/19 at 20:44; Status DC Fentanyl Citrate (Fentanyl 2ml Vial) 50 mcg 1X STAT IV Last administered on 03/04/19at 17:47; Start 03/04/19 at 17:23; Stop 03/04/19 at 17:28; Status DC Oxycodone/ Acetaminophen (Percocet 5/325) 1 tab PRN Q4HRS PRN PO PAIN; Start 03/04/19 at 20:45; Stop 03/04/19 at 21:17; Status DC Albuterol/ Ipratropium (Duoneb) 3 ml Q4HRS W/A NEB Last administered on 03/05/19at 15:11; Start 03/04/19 at 22:00 Acetaminophen (Tylenol) 500 mg BID PO ; Start 03/04/19 at 21:00; Stop 03/04/19 at 21:17; Status DC Albuterol Sulfate (Ventolin Neb Soln) 2.5 mg PRN Q6HRS PRN INH SHORTNESS OF BREATH; Start 03/04/19 at 20:45 Buspirone HCl (Buspar) 5 mg TID PRN PRN PO ANXIETY / AGITATION; Start 03/04/19 at 20:45 Lisinopril (Prinivil) 5 mg DAILY PO Last administered on 03/05/19at 09:04; Start 03/05/19 at 09:00 Phenazopyridine HCl (Pyridium) 100 mg PRN TID PRN PO URINARY PAIN; Start 03/04/19 at 21:00 Ceftriaxone Sodium (Rocephin) 1 gm Q24H IVP Last administered on 03/04/19at 21:49; Start 03/04/19 at 21:00 Aspirin (Netviewer Aspirin) 325 mg 1X ONCE PO ; Start 03/04/19 at 21:00; Stop 03/04/19 at 21:17; Status DC Aspirin (Netviewer Aspirin) 325 mg [id number] PO ; Start 03/05/19 at 08:00; Stop 03/04/19 at 22:05; Status DC Fentanyl Citrate (Fentanyl 2ml Vial) 50 mcg PRN Q4HRS PRN IVP PAIN Last administered on 03/05/19at 13:16; Start 03/04/19 at 21:00 Oxycodone HCl (Roxicodone) 5 mg Q4HRS PRN PO PAIN Last administered on 03/05/19at 07:16; Start 03/04/19 at 21:15 Clopidogrel Bisulfate (Plavix) 75 mg 1X ONCE PO Last administered on 03/04/19at 21:48; Start 03/04/19 at 21:15; Stop 03/04/19 at 21:18; Status DC Benzonatate (Tessalon Perle) 100 mg [id number] PO Last administered on 03/05/19at 13:17; Start 11/5/19 at 09:00 Benzonatate (Tessalon Perle) 100 mg 1X ONCE PO Last administered on 03/04/19at 22:12; Start 03/04/19 at 22:15; Stop 03/04/19 at 22:16; Status DC Guaifenesin/ Codeine Phosphate (Robitussin Ac) 5 ml PRN Q6HRS PRN PO COUGH Last administered on 03/05/19at 13:19; Start 03/04/19 at 22:15 Prednisone (Prednisone) 40 mg DAILY PO Last administered on 03/05/19at 09:04; Start 03/05/19 at 09:00 Atorvastatin Calcium (Lipitor) 10 mg QHS PO ; Start 03/05/19 at 21:00 Lactobacillus Rhamnosus (Culturelle) 1 cap BID PO ; Start 03/05/19 at 21:00 Active Scripts Active Pyridium (Phenazopyridine Hcl) 100 Mg Tablet 100 Mg PO TID Buspirone Hcl 5 Mg Tablet 1 Tab PO TID PRN PRN 30 Days Proair Hfa Inhaler (Albuterol Sulfate) 8.5 Gm Hfa.aer.ad 1 Puff INH PRN Q6HRS PRN 30 Days Albuterol Sulfate Neb Soln (Albuterol Sulfate) 2.5 Mg/3 Ml Vial.neb 1 Vial NEB PRN Q4HRS Reported Acetaminophen 500 Mg Tablet 1 Tab PO BID Stelara (Ustekinumab) 90 Mg/1 Ml Disp.syrin 90 Mg SQ PRN PRN Lisinopril 5 Mg Tablet 1 Tab PO DAILY Allergies Allergies: Allergies Coded Allergies Type Severity Reaction Last Updated Verified egg Allergy Mild vomiting 02/25/18 Yes NSAIDS (Non-Steroidal Anti-Inflamma Adverse Reaction Mild stomach ache 03/05/19 Yes ROS Review of System The patient denies any associated fevers, chills, headache, ear pain, rhinorrhea, sore throat, stiff neck, productive cough, chest pain, shortness of breath, back or flank pain, abdominal pain, nausea, vomiting, diarrhea, constipation, dysuria, rash, numbness, weakness, tingling, incontinence, difficulty ambulating, or diaphoresis. Physical Exam Physical Exam General: Well developed, well nourished, no acute distress, well appearing HEENT: Pupils equally round and reactive to light, EOMI, no discharge, normal conjunctiva Neck: Supple, no nuchal rigidity, no JVD, trachea midline, no tenderness Cardiac: RRR, no murmurs, no gallops, no rubs Chest/Lungs: CTAB, no wheeze, no rhonchi, no crackles Abdomen: soft, non-distended, no guarding, no peritoneal signs, non-tender Back: No tenderness Extremities: no edema, pulses intact, non-tender,capillary refill <3 sec bilateral upper and lower extremities, Neuro: Alert and oriented x 4, no focal deficits, normal speech Vitals Vitals: Vital Signs Date Time Temp Pulse Resp B/P (MAP) Pulse Ox O2 Delivery O2 Flow Rate FiO2 03/05/19 15:12 95 Room Air 03/05/19 15:00 98.3 97 17 119/95 (103) 98.3 Labs Labs Laboratory Tests Test 03/04/19 13:09 03/04/19 14:30 03/04/19 17:15 03/05/19 03:32 White Blood Count 10.1 x10^3/uL (4.0-11.0) 8.6 x10^3/uL (4.0-11.0) Red Blood Count 4.33 x10^6/uL (3.50-5.40) 3.98 x10^6/uL (3.50-5.40) Hemoglobin 13.5 g/dL (12.0-15.5) 12.4 g/dL (12.0-15.5) Hematocrit 41.4 % (36.0-47.0) 38.3 % (36.0-47.0) Mean Corpuscular Volume 96 fL (79-100) 96 fL (79-100) Mean Corpuscular Hemoglobin 31 pg (25-35) 31 pg (25-35) Mean Corpuscular Hemoglobin Concent 33 g/dL (31-37) 33 g/dL (31-37) Red Cell Distribution Width 13.7 % (11.5-14.5) 13.8 % (11.5-14.5) Platelet Count 369 x10^3/uL (140-400) 362 x10^3/uL (140-400) Neutrophils (%) (Auto) 67 % (31-73) 84 % (31-73) Lymphocytes (%) (Auto) 27 % (24-48) 13 % (24-48) Monocytes (%) (Auto) 5 % (0-9) 3 % (0-9) Eosinophils (%) (Auto) 1 % (0-3) 0 % (0-3) Basophils (%) (Auto) 1 % (0-3) 0 % (0-3) Neutrophils # (Auto) 6.7 x10^3/uL (1.8-7.7) 7.2 x10^3/uL (1.8-7.7) Lymphocytes # (Auto) 2.7 x10^3/uL (1.0-4.8) 1.1 x10^3/uL (1.0-4.8) Monocytes # (Auto) 0.5 x10^3/uL (0.0-1.1) 0.2 x10^3/uL (0.0-1.1) Eosinophils # (Auto) 0.1 x10^3/uL (0.0-0.7) 0.0 x10^3/uL (0.0-0.7) Basophils # (Auto) 0.1 x10^3/uL (0.0-0.2) 0.0 x10^3/uL (0.0-0.2) Lactic Acid Level 1.0 mmol/L (0.4-2.0) Troponin I Quantitative < 0.017 ng/mL (0.000-0.055) Ethyl Alcohol Level < 10 mg/dL (0-10) Prothrombin Time 12.8 SEC (11.7-14.0) Prothromb Time International Ratio 1.0 (0.8-1.1) Activated Partial Thromboplast Time 30 SEC (24-38) Sodium Level 147 mmol/L (136-145) 141 mmol/L (136-145) Potassium Level 3.7 mmol/L (3.5-5.1) 3.9 mmol/L (3.5-5.1) Chloride Level 109 mmol/L (98-107) 103 mmol/L (98-107) Carbon Dioxide Level 28 mmol/L (21-32) 26 mmol/L (21-32) Anion Gap 10 (6-14) 12 (6-14) Blood Urea Nitrogen 9 mg/dL (7-20) 10 mg/dL (7-20) Creatinine 0.8 mg/dL (0.6-1.0) 1.0 mg/dL (0.6-1.0) Estimated GFR (Cockcroft-Gault) 90.1 69.7 BUN/Creatinine Ratio 11 (6-20) 10 (6-20) Glucose Level 95 mg/dL (70-99) 175 mg/dL (70-99) Calcium Level 9.1 mg/dL (8.5-10.1) 8.9 mg/dL (8.5-10.1) Total Bilirubin 0.3 mg/dL (0.2-1.0) 0.2 mg/dL (0.2-1.0) Aspartate Amino Transf (AST/SGOT) 14 U/L (15-37) 13 U/L (15-37) Alanine Aminotransferase (ALT/SGPT) 16 U/L (14-59) 15 U/L (14-59) Alkaline Phosphatase 67 U/L (46-116) 69 U/L (46-116) Total Protein 7.1 g/dL (6.4-8.2) 7.4 g/dL (6.4-8.2) Albumin 3.4 g/dL (3.4-5.0) 3.4 g/dL (3.4-5.0) Albumin/Globulin Ratio 0.9 (1.0-1.7) 0.9 (1.0-1.7) Urine Color Yellow Urine Clarity Clear Urine pH 5.5 Urine Specific [place] 1.015 Urine Protein Negative mg/dL (NEG-TRACE) Urine Glucose (UA) Negative mg/dL (NEG) Urine Ketones (Stick) Negative mg/dL (NEG) Urine Blood Trace (NEG) Urine Nitrite Negative (NEG) Urine Bilirubin Negative (NEG) Urine Urobilinogen Dipstick 0.2 mg/dL (0.2 mg/dL) Urine Leukocyte Esterase Moderate (NEG) Urine RBC 1-2 /HPF (0-2) Urine WBC 11-20 /HPF (0-4) Urine Squamous Epithelial Cells Occ /LPF Urine Bacteria Many /HPF (0-FEW) Urine Opiates Screen Neg (NEG) Urine Methadone Screen Neg (NEG) Urine Barbiturates Neg (NEG) Urine Phencyclidine Screen Neg (NEG) Urine Amphetamine/Methamphetamine Neg (NEG) Urine Benzodiazepines Screen Pos (NEG) Urine Cocaine Screen Pos (NEG) Urine Cannabinoids Screen Pos (NEG) Urine Ethyl Alcohol Neg (NEG) Triglycerides Level 44 mg/dL (0-150) Cholesterol Level 178 mg/dL (0-200) LDL Cholesterol, Calculated 114 mg/dL (0-100) VLDL Cholesterol, Calculated 9 mg/dL (0-40) Non-HDL Cholesterol Calculated 123 mg/dL (0-129) HDL Cholesterol 55 mg/dL (40-60) Cholesterol/HDL Ratio 3.2 Laboratory Tests Test 03/04/19 17:15 03/05/19 03:32 Urine Color Yellow Urine Clarity Clear Urine pH 5.5 Urine Specific [place] 1.015 Urine Protein Negative mg/dL (NEG-TRACE) Urine Glucose (UA) Negative mg/dL (NEG) Urine Ketones (Stick) Negative mg/dL (NEG) Urine Blood Trace (NEG) Urine Nitrite Negative (NEG) Urine Bilirubin Negative (NEG) Urine Urobilinogen Dipstick 0.2 mg/dL (0.2 mg/dL) Urine Leukocyte Esterase Moderate (NEG) Urine RBC 1-2 /HPF (0-2) Urine WBC 11-20 /HPF (0-4) Urine Squamous Epithelial Cells Occ /LPF Urine Bacteria Many /HPF (0-FEW) Urine Opiates Screen Neg (NEG) Urine Methadone Screen Neg (NEG) Urine Barbiturates Neg (NEG) Urine Phencyclidine Screen Neg (NEG) Urine Amphetamine/Methamphetamine Neg (NEG) Urine Benzodiazepines Screen Pos (NEG) Urine Cocaine Screen Pos (NEG) Urine Cannabinoids Screen Pos (NEG) Urine Ethyl Alcohol Neg (NEG) White Blood Count 8.6 x10^3/uL (4.0-11.0) Red Blood Count 3.98 x10^6/uL (3.50-5.40) Hemoglobin 12.4 g/dL (12.0-15.5) Hematocrit 38.3 % (36.0-47.0) Mean Corpuscular Volume 96 fL (79-100) Mean Corpuscular Hemoglobin 31 pg (25-35) Mean Corpuscular Hemoglobin Concent 33 g/dL (31-37) Red Cell Distribution Width 13.8 % (11.5-14.5) Platelet Count 362 x10^3/uL (140-400) Neutrophils (%) (Auto) 84 % (31-73) Lymphocytes (%) (Auto) 13 % (24-48) Monocytes (%) (Auto) 3 % (0-9) Eosinophils (%) (Auto) 0 % (0-3) Basophils (%) (Auto) 0 % (0-3) Neutrophils # (Auto) 7.2 x10^3/uL (1.8-7.7) Lymphocytes # (Auto) 1.1 x10^3/uL (1.0-4.8) Monocytes # (Auto) 0.2 x10^3/uL (0.0-1.1) Eosinophils # (Auto) 0.0 x10^3/uL (0.0-0.7) Basophils # (Auto) 0.0 x10^3/uL (0.0-0.2) Sodium Level 141 mmol/L (136-145) Potassium Level 3.9 mmol/L (3.5-5.1) Chloride Level 103 mmol/L (98-107) Carbon Dioxide Level 26 mmol/L (21-32) Anion Gap 12 (6-14) Blood Urea Nitrogen 10 mg/dL (7-20) Creatinine 1.0 mg/dL (0.6-1.0) Estimated GFR (Cockcroft-Gault) 69.7 BUN/Creatinine Ratio 10 (6-20) Glucose Level 175 mg/dL (70-99) Calcium Level 8.9 mg/dL (8.5-10.1) Total Bilirubin 0.2 mg/dL (0.2-1.0) Aspartate Amino Transf (AST/SGOT) 13 U/L (15-37) Alanine Aminotransferase (ALT/SGPT) 15 U/L (14-59) Alkaline Phosphatase 69 U/L (46-116) Total Protein 7.4 g/dL (6.4-8.2) Albumin 3.4 g/dL (3.4-5.0) Albumin/Globulin Ratio 0.9 (1.0-1.7) Triglycerides Level 44 mg/dL (0-150) Cholesterol Level 178 mg/dL (0-200) LDL Cholesterol, Calculated 114 mg/dL (0-100) VLDL Cholesterol, Calculated 9 mg/dL (0-40) Non-HDL Cholesterol Calculated 123 mg/dL (0-129) HDL Cholesterol 55 mg/dL (40-60) Cholesterol/HDL Ratio 3.2 SUJATHA ALFREDO MD Mar 05, 2019 16:16
[2019-03-05 19:20] VITALS: BP 120/66
[2019-03-05] MEDS: LACTOBACILLUS RHAMNOSUS GG 1 CAPSULE. PO SCH (20:57)
[2019-03-05] MEDS ORDERED: ATORVASTATIN CALCIUM 10 MG TABLET. PO SCH (21:00)
[2019-03-05] MEDS: cefTRIAXone IV Push 1 GM VIAL. IVP SCH (21:02)
[2019-03-05 23:07] LABS: HEMOGLOBIN A1C 4.7 % (4.8-5.6)
[2019-03-05 23:20] VITALS: BP 107/66
[2019-03-06] MEDS: oxyCODONE IR 5 MG TABLET PO PRN ×2 (02:45→08:51)
[2019-03-06 03:15] VITALS: BP 124/82
[2019-03-06] MEDS: fentaNYL PF VIAL 100 MCG/2 ML VIAL IVP PRN ×2 (04:45→09:15)
[2019-03-06 07:15] VITALS: BP 102/60
[2019-03-06] MEDS: IPRATRPIUM/ALBUTEROL 0.5/2.5MG 3 ML NEBU. NEB SCH ×3 (07:40→12:13)
--- NOTE | 2019-03-06 08:36 | NUR ---
SW consulted for bereavement f/u. Chart reviewed and Pt lives at home. Pt currently has lost a nephew, tearful and anxious. PAT team consult in EMR. SW phoned PAT team and Angel will come in to see pt this morning. PT recommends home health. SW will continue to follow.
[2019-03-06] MEDS: LACTOBACILLUS RHAMNOSUS GG 1 CAPSULE. PO SCH (08:50)
[2019-03-06] MEDS: predniSONE 20 MG TABLET PO SCH (08:50)
[2019-03-06] MEDS: BENZONATATE 100 MG CAPSULE. PO SCH (08:51)
[2019-03-06] MEDS: LISINOPRIL 5 MG TABLET. PO SCH (08:51)
[2019-03-06] MEDS ORDERED: guaiFENesin/CODEINE 100mg/10mg PO (09:11)
[2019-03-06] MEDS ORDERED: PRED-220 PO (09:11)
[2019-03-06] MEDS ORDERED: TRAM-48 PO (09:11)
[2019-03-06] MEDS ORDERED: AMOX1TAB61 PO (09:13)
[2019-03-06] MEDS: guaiFENesin/CODEINE 100mg/10mg 5 ML LIQUID PO PRN (09:14)
--- NOTE | 2019-03-06 09:15 | SNU/HH DC ---
DISCHARGE WITH HOME HEALTH DISCHARGE INFORMATION: Discharge Date: Mar 06, 2019 Final Diagnosis: UTI bronchitis parathesias back pain weakness Problems Medical Problems: (1) Arm paresthesia, right Status: Acute (2) COPD exacerbation Status: Acute (3) COPD with acute bronchitis Status: Acute (4) Cough Status: Acute (5) Right arm weakness Status: Acute (6) SOB (shortness of breath) Status: Acute (7) Weakness on left side of face Status: Acute Condition on Discharge: Stable HOME HEALTH: Face to Face: I certify this patient is under my care and that I, had a face to face encounter that meets the physician face to face encounter requirements with this patient on 03/06 Medical Complications: Other (UTI, bronchitis, parathesias, new weakness) Mcfp For: Medication Management RN For Eval/Treatment: Yes Physical Therapy For: Evalulation/Treatment Occupational Therapy For: Evaluation/Treatment Pt Meets Homebound Status: Unsteady balance w/ amb,, Frequent falls w/ injury POST DISCHARGE ORDERS: Activity Instructions for Disc: Activity as tolerated Weight Bearing Status after Di: As tolerated CHECKS AFTER DISCHARGE: Checks after discharge: Check blood press - daily FOLLOW-UP: Follow up with: Dr. Lockwood 03/17 TREATMENT/EQUIPMENT ORDERS: Adaptive Equipment Issued: None CERTIFICATION STATEMENT: Certification Statement: Certification Statement: Based on the above finding, I certify that this patient is confined to the home and needs intermittent penitentiary care, physical therapy and/or speech therapy, or continues to need occupational therapy.~ This patient is under my care, and I have initiated the establishment of the plan of care.~ This patient will be followed by myself or a community physician who will periodically review the plan of care. Home Meds Active Scripts Amoxicillin/Potassium Clav (AUGMENTIN 875-125 TABLET) 1 Each Tablet, 1 TAB PO BID for bronchitis for 7 Days, #14 TAB 0 Refills Prov:PHYLLIS ENCARNACION MD 03/06/19 Tramadol Hcl (ULTRAM) 50 Mg Tablet, 1 TAB PO PRN BID PRN for pain MDD 2 Tablet(s) for 30 Days, #20 TAB 0 Refills Prov:PHYLLIS ENCARNACION MD 03/06/19 [guaiFENesin/CODEINE 100mg/10mg] 5 ML LIQUID No Conflict Check, 5 ML PO PRN Q6HRS PRN for COUGH, #80 ML Prov:PHYLLIS ENCARNACION MD 03/06/19 Prednisone (PREDNISONE ) 10 Mg Tablet, 10 MG PO UD for bronchitis, #20 TAB 0 Refills Take 4 tablets by mouth daily for 2 days, then take 3 tablets by mouth daily for 2 days, then take 2 tablets by mouth daily for 2 days, then take 1 tablets by mouth daily for 2 days, then stop. Prov:PHYLLIS ENCARNACION MD 03/06/19 Phenazopyridine Hcl (PYRIDIUM) 100 Mg Tablet, 100 MG PO TID, #9 TAB Prov:ANNA FARRIS [employer]IST[employer] MANAGER 09/29/18 Buspirone Hcl (BUSPIRONE HCL) 5 Mg Tablet, 1 TAB PO TID PRN PRN for ANXIETY / AGITATION for 30 Days, #90 TAB 2 Refills Prov:VEE POTTER MD 08/16/18 Albuterol Sulfate (PROAIR HFA INHALER) 8.5 Gm Hfa.aer.ad, 1 PUFF INH PRN Q6HRS PRN for SHORTNESS OF BREATH for 30 Days, INHALER 0 Refills Prov:TRISH BYRD MD 06/15/18 Albuterol Sulfate (ALBUTEROL SULFATE NEB SOLN) 2.5 Mg/3 Ml Vial.neb, 1 VIAL NEB PRN Q4HRS, #50 VIAL Prov:SHEY PARISH DO 02/25/18 Reported Medications Acetaminophen (ACETAMINOPHEN) 500 Mg Tablet, 1 TAB PO BID for pain, #60 TAB 1 Refill 08/23/18 Ustekinumab (STELARA) 90 Mg/1 Ml Disp.syrin, 90 MG SQ PRN PRN for SHORTNESS OF BREATH, DIS.SYR 08/23/18 Lisinopril (LISINOPRIL) 5 Mg Tablet, 1 TAB PO DAILY for htn, #30 TAB 5 Refills 08/23/18 PHYLLIS ENCARNACION MD Mar 06, 2019 09:15
--- NOTE | 2019-03-06 09:19 | PDOC3 ---
Discharge Summary Visit Information Date of Admission: Mar 04, 2019 Date of Discharge: Mar 06, 2019 Final Diagnosis acute toxic encephalopathy cough, shortness of breath, COPD with acute bronchitis UTI SIRS, sepsis from UTI was POA right arm weakness, left facial weakness, new parathesias, likely psychiatric more than AIDP depression, anxiety, prolonged bereavement, extended grief polysubstance abuse, she denied at fist, , cocaine, THC, benzo pos, back pain, "cyst on my spine" Problems Medical Problems: (1) Arm paresthesia, right Status: Acute (2) COPD exacerbation Status: Acute (3) COPD with acute bronchitis Status: Acute (4) Cough Status: Acute (5) Right arm weakness Status: Acute (6) SOB (shortness of breath) Status: Acute (7) Weakness on left side of face Status: Acute Brief Hospital Course Allergies Allergies Coded Allergies Type Severity Reaction Last Updated Verified egg Allergy Mild vomiting 02/25/18 Yes NSAIDS (Non-Steroidal Anti-Inflamma Adverse Reaction Mild stomach ache 03/05/19 Yes Vital Signs Vital Signs Date Time Temp Pulse Resp B/P (MAP) Pulse Ox O2 Delivery O2 Flow Rate FiO2 03/06/19 08:51 99 Room Air 03/06/19 08:51 77 102/60 03/06/19 07:15 98.3 18 98.3 Lab Results Laboratory Tests Test 03/04/19 13:09 03/04/19 14:30 03/04/19 17:15 03/05/19 03:32 White Blood Count 10.1 x10^3/uL (4.0-11.0) 8.6 x10^3/uL (4.0-11.0) Red Blood Count 4.33 x10^6/uL (3.50-5.40) 3.98 x10^6/uL (3.50-5.40) Hemoglobin 13.5 g/dL (12.0-15.5) 12.4 g/dL (12.0-15.5) Hematocrit 41.4 % (36.0-47.0) 38.3 % (36.0-47.0) Mean Corpuscular Volume 96 fL (79-100) 96 fL (79-100) Mean Corpuscular Hemoglobin 31 pg (25-35) 31 pg (25-35) Mean Corpuscular Hemoglobin Concent 33 g/dL (31-37) 33 g/dL (31-37) Red Cell Distribution Width 13.7 % (11.5-14.5) 13.8 % (11.5-14.5) Platelet Count 369 x10^3/uL (140-400) 362 x10^3/uL (140-400) Neutrophils (%) (Auto) 67 % (31-73) 84 % (31-73) Lymphocytes (%) (Auto) 27 % (24-48) 13 % (24-48) Monocytes (%) (Auto) 5 % (0-9) 3 % (0-9) Eosinophils (%) (Auto) 1 % (0-3) 0 % (0-3) Basophils (%) (Auto) 1 % (0-3) 0 % (0-3) Neutrophils # (Auto) 6.7 x10^3/uL (1.8-7.7) 7.2 x10^3/uL (1.8-7.7) Lymphocytes # (Auto) 2.7 x10^3/uL (1.0-4.8) 1.1 x10^3/uL (1.0-4.8) Monocytes # (Auto) 0.5 x10^3/uL (0.0-1.1) 0.2 x10^3/uL (0.0-1.1) Eosinophils # (Auto) 0.1 x10^3/uL (0.0-0.7) 0.0 x10^3/uL (0.0-0.7) Basophils # (Auto) 0.1 x10^3/uL (0.0-0.2) 0.0 x10^3/uL (0.0-0.2) Lactic Acid Level 1.0 mmol/L (0.4-2.0) Troponin I Quantitative < 0.017 ng/mL (0.000-0.055) Ethyl Alcohol Level < 10 mg/dL (0-10) Prothrombin Time 12.8 SEC (11.7-14.0) Prothromb Time International Ratio 1.0 (0.8-1.1) Activated Partial Thromboplast Time 30 SEC (24-38) Sodium Level 147 mmol/L (136-145) 141 mmol/L (136-145) Potassium Level 3.7 mmol/L (3.5-5.1) 3.9 mmol/L (3.5-5.1) Chloride Level 109 mmol/L (98-107) 103 mmol/L (98-107) Carbon Dioxide Level 28 mmol/L (21-32) 26 mmol/L (21-32) Anion Gap 10 (6-14) 12 (6-14) Blood Urea Nitrogen 9 mg/dL (7-20) 10 mg/dL (7-20) Creatinine 0.8 mg/dL (0.6-1.0) 1.0 mg/dL (0.6-1.0) Estimated GFR (Cockcroft-Gault) 90.1 69.7 BUN/Creatinine Ratio 11 (6-20) 10 (6-20) Glucose Level 95 mg/dL (70-99) 175 mg/dL (70-99) Calcium Level 9.1 mg/dL (8.5-10.1) 8.9 mg/dL (8.5-10.1) Total Bilirubin 0.3 mg/dL (0.2-1.0) 0.2 mg/dL (0.2-1.0) Aspartate Amino Transf (AST/SGOT) 14 U/L (15-37) 13 U/L (15-37) Alanine Aminotransferase (ALT/SGPT) 16 U/L (14-59) 15 U/L (14-59) Alkaline Phosphatase 67 U/L (46-116) 69 U/L (46-116) Total Protein 7.1 g/dL (6.4-8.2) 7.4 g/dL (6.4-8.2) Albumin 3.4 g/dL (3.4-5.0) 3.4 g/dL (3.4-5.0) Albumin/Globulin Ratio 0.9 (1.0-1.7) 0.9 (1.0-1.7) Urine Color Yellow Urine Clarity Clear Urine pH 5.5 Urine Specific [place] 1.015 Urine Protein Negative mg/dL (NEG-TRACE) Urine Glucose (UA) Negative mg/dL (NEG) Urine Ketones (Stick) Negative mg/dL (NEG) Urine Blood Trace (NEG) Urine Nitrite Negative (NEG) Urine Bilirubin Negative (NEG) Urine Urobilinogen Dipstick 0.2 mg/dL (0.2 mg/dL) Urine Leukocyte Esterase Moderate (NEG) Urine RBC 1-2 /HPF (0-2) Urine WBC 11-20 /HPF (0-4) Urine Squamous Epithelial Cells Occ /LPF Urine Bacteria Many /HPF (0-FEW) Urine Opiates Screen Neg (NEG) Urine Methadone Screen Neg (NEG) Urine Barbiturates Neg (NEG) Urine Phencyclidine Screen Neg (NEG) Urine Amphetamine/Methamphetamine Neg (NEG) Urine Benzodiazepines Screen Pos (NEG) Urine Cocaine Screen Pos (NEG) Urine Cannabinoids Screen Pos (NEG) Urine Ethyl Alcohol Neg (NEG) Hemoglobin A1c 4.7 % (4.8-5.6) Triglycerides Level 44 mg/dL (0-150) Cholesterol Level 178 mg/dL (0-200) LDL Cholesterol, Calculated 114 mg/dL (0-100) VLDL Cholesterol, Calculated 9 mg/dL (0-40) Non-HDL Cholesterol Calculated 123 mg/dL (0-129) HDL Cholesterol 55 mg/dL (40-60) Cholesterol/HDL Ratio 3.2 Brief Hospital Course Ms. Flood is a 53 old female, admit with cough, was animated and confused on admit, more calm over days, leg weakness, right hand weakness, left face weakness, not consistent with acute neuro problem, should f/u with psychiatry per neuro consult, MRI brain OK w./u neg sobriety stressed, we contacted PAT team and social work for bereavement support, needs assistance Discharge Information Condition at Discharge: Improved Follow Up: Weeks Disposition/Orders: D/C to Home w/ HH Scheduled Acetaminophen (Acetaminophen) 500 Mg Tablet, 1 TAB PO BID for pain, #60 Ref 1 (Reported) Entered as Reported by: ELLE HELLER on 08/23/18 1104 Last Action: Continued on 03/04/192042 by PHYLLIS ENCARNACION Albuterol Sulfate (Albuterol Sulfate Neb Soln) 2.5 Mg/3 Ml Vial.neb, 1 VIAL NEB PRN Q4HRS, #50 Prescribed by: SHEY PARISH D.O. on 02/25/18 1329 Last Action: HELD on 03/04/192042 by PHYLLIS ENCARNACION Amoxicillin/Potassium Clav (Augmentin 875-125 Tablet) 1 Each Tablet, 1 TAB PO BID for bronchitis for 7 Days, #14 Ref 0 Prescribed by: PHYLLIS ENCARNACION on 03/06/19912 Lisinopril (Lisinopril) 5 Mg Tablet, 1 TAB PO DAILY for htn, #30 Ref 5 (Reported) Entered as Reported by: ELLE HELLER on 08/23/181103 Last Action: Continued on 03/04/192042 by PHYLLIS ENCARNACION Phenazopyridine Hcl (Pyridium) 100 Mg Tablet, 100 MG PO TID, #9 Prescribed by: Danika Ford APRN on 09/29/18 1306 Last Action: Converted on 03/04/192042 by PHYLLIS ENCARNACION Prednisone (Prednisone ) 10 Mg Tablet, 10 MG PO UD for bronchitis, #20 Ref 0 Take 4 tablets by mouth daily for 2 days, then take 3 tablets by mouth daily for 2 days, then take 2 tablets by mouth daily for 2 days, then take 1 tablets by mouth daily for 2 days, then stop. Prescribed by: PHYLLIS ENCARNACION on 03/06/19910 Scheduled PRN Albuterol Sulfate (Proair Hfa Inhaler) 8.5 Gm Hfa.aer.ad, 1 PUFF INH PRN Q6HRS PRN for SHORTNESS OF BREATH for 30 Days, Ref 0 Prescribed by: TRISH BYRD on 06/15/18 1004 Last Action: Continued on 03/04/192042 by PHYLLIS ENCARNACION Buspirone Hcl (Buspirone Hcl) 5 Mg Tablet, 1 TAB PO TID PRN PRN for ANXIETY / AGITATION for 30 Days, #90 Ref 2 Prescribed by: VEE POTTER MD on 08/16/18 1108 Last Action: Continued on 03/04/192042 by PHYLLIS ENCARNACION Tramadol Hcl (Ultram) 50 Mg Tablet, 1 TAB PO PRN BID PRN for pain MDD 2 Tablet(s) for 30 Days, #20 Ref 0 Prescribed by: PHYLLIS ENCARNACION on 03/06/19910 Ustekinumab (Stelara) 90 Mg/1 Ml Disp.syrin, 90 MG SQ PRN PRN for SHORTNESS OF BREATH, (Reported) Entered as Reported by: ELLE HELLER on 08/23/181103 Last Action: HELD on 03/04/192042 by PHYLLIS ENCARNACION [guaiFENesin/CODEINE 100mg/10mg] 5 ML LIQUID, 5 ML PO PRN Q6HRS PRN for COUGH, #80 Prescribed by: PHYLLIS ENCARNACION on 03/06/19 0911 Patient Instructions Patient Instructions > 30 min face to face x2 PHYLLIS ENCARNACION MD Mar 06, 2019 09:19
[2019-03-06 11:02] VITALS: BP 116/63
--- NOTE | 2019-03-06 12:55 | NUR ---
SW following pt. Pt seen by PAT team and plans to do a walk in at [facility] tomorrow. Pt is provided with [facility] and [facility]. Pt accepted by [facility] but declined services stating she is currently staying in between homes and does not have permanent residence. Pt also stated she has 10 children and they will able to take care of her. Pt denies any other needs at this time. Discussed with RN.
--- NOTE | 2019-03-06 14:06 | CONS ---
DATE OF CONSULTATION: 03/06/2019 ATTENDING PHYSICIAN: Dr. Gibson. REASON FOR CONSULTATION: The patient was seen at the request of Dr. Gibson for rehab evaluation. HISTORY OF PRESENT ILLNESS: This is a 53-year-old female admitted on 03/04/2019 with dyspnea and cough, coughing up greenish stuff for about 2 weeks, fever of 101 at home, also new onset right hand weakness and she admits to chronic left axilla area numbness and she also had some difficulty with weakness in her right foot and fell. The patient with chronic lower back pain, on disability for the last 2 years. 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 Past medical history also includes chronic obstructive pulmonary disease. The patient is known ALLERGIC TO NONSTEROIDAL ANTI-INFLAMMATORY MEDICATION and EGG and she admits cirrhosis of liver. She takes Tylenol for pain. Uses heating pad and also had a back support brace. PAST MEDICAL HISTORY: Includes hypertension, osteoarthritis, rheumatoid arthritis. FAMILY HISTORY: Hypertension. SOCIAL HISTORY: She still smokes less than 1 pack of cigarettes per day. She lives with her . She takes marijuana and cocaine. The patient since admission had radiological studies including CT scan and MRI scan of the brain and carotid Doppler studies, which failed to reveal any acute abnormality. The patient denies any difficulty swallowing or speech. She admits some neck pain. She admits occasional urinary incontinence. PHYSICAL EXAMINATION: Today revealed a middle-aged female. She is alert, oriented to time, place, person and circumstance and follows commands appropriately, moves all 4 extremities voluntarily where she had 4+/5 grade muscle strength with relatively increased weakness of right wrist and finger extensors and hand intrinsic muscles. Deep tendon reflexes are 1-2+ and symmetrical. She had decreased sensory perception over right hand, both dorsal and palmar aspect. Negative Tinel sign over median nerve at the wrist and over ulnar nerve at the wrist and elbow and over radial nerve at spiral groove. She had minimal tenderness to palpation over cervical and thoracic paraspinal muscles, more tenderness to palpation over lumbar paraspinal muscles extending over to sacroiliac joint area and straight leg raising test is negative bilaterally. She had crepitus on range of motion of both knee joints with mild knee joint effusion. She had painful range of motion of all 4 extremity joints. Her skin is intact at this time. She is independent with bed mobility, transfers and up walking without any assistive devices, no significant pain on range of motion of her cervical spine, but she had painful limited movements of her lumbar spine. ASSESSMENT: 1. A middle-aged female with chronic lower back pain from degenerative disk disease of lumbar vertebrae without any clinical evidence of ongoing lumbar radiculopathy. 2. Degenerative joint disease of both knees, mild bilateral trochanteric bursitis where she had tenderness to palpation over trochanteric bursa area bilaterally, also presents with recent onset right hand weakness. The patient had minimal weakness of her right wrist and finger extensors, maybe she had partial radial nerve palsy. No clinical evidence of cervical radiculopathy. The patient had cervical paraspinal muscle strain and also thoracic area discomfort. The patient with known chronic obstructive pulmonary disease, still a smoker, history of rheumatoid arthritis, hypertension. RECOMMENDATION: I have reviewed with her a home program of physical modalities, trigger point massage and relax, stretching, x-ray to her neck and back muscles and reviewed with her proper body mechanics and isometric strengthening exercise to her lower extremity muscle groups and to use her right hand actively. The patient was advised to keep followup appointment with her family physician. I would like see her for followup on as needed basis to consider trigger point injection to help ease her back pain. Dr. Gibson, I appreciate asking me to participate in the care of this interesting patient. When medically stable, she can be discharged to home with outpatient followup. JING DE LEON MD DR: RICHMOND/ruma JOB#: [id number] / [id number]
--- NOTE | 2019-03-06 14:20 | NUR ---
Pt was escorted with family and belongings to private vehicle in ER entrance, by this RN
--- NOTE | 2019-03-06 15:00 | PDOC ---
PROGRESS NOTES Assessment Assessment Right side numbness and weakness. Left side facial weakness. Fever. Cough. COPD. HTN. HLD. Cocaine positive. Marijuana positive. Benzo positive. Psychiatric issues. No evidence of acute CVA this time. RECOMMENDATIONS/PLAN: ASA daily. Lipitor 10 mg HS. Neurontin 100 mg tid. Treat medical diseases. See Psychiatry. FU with PCP. History of Present Illness This is a 53 -year-old AA female patient who came to the ER complaining dyspnea and cough, "coughing up green stuff for 2 weeks" and had some fever at home to 101 degree. She complained left side facial numbness and right side UE and LE numbness and weakness, so Neurology was requested for consultation. Further evaluation ruled out acute CVA. She stated on 03/06/19 that she had similar symptoms in her left side then resolved about 3 months ago. Past Medical History Cardiovascular: HTN Pulmonary: COPD, Pneumonia Musculoskeletal: low back pain, Osteoarthritis Renal/: Other Past Surgical History No major surgery recently. Family History Hypertension Social History Smoke: <1 pack per day ALCOHOL: none Drugs: She denied any ellicits, her UDS tells cocaine, THC. Allergies Coded Allergies: NSAIDS (Non-Steroidal Anti-Inflamma (Verified Allergy, Mild, stomach ache, 02/25/18) egg (Verified Allergy, Mild, vomiting, 02/25/18) MEDICATIONS: Refer to MAR REVIEW OF SYSTEMS: Constitutional: No malnutrition, weight loss, cachexia. Head: No recent traumatic brain or head injury. Skin: No edema, or rash. Ear: No infection. Eyes: No vision loss or color blindness. Nose: No bleeding or purulent discharges. Hearing: No hearing decrease. Neck: No injury. Breast: No history of cancer, masses,or discharges. Cardiac: HTN, HLD. Pulmonary: COPD. GI: No GI ulcer, GI bleeding. Urinary/genital: No dysuria, incontinence, urinary retention. Endocrinologic: No cousin face, craniofacial dysmorphism, polydactyly. Skeletomuscular: No muscular atrophy, deformity. Neurological: see HP. Psychiatric: Denies drug use/abuse. Otherwise, not [id number] review of systems. PHYSICAL EXAMINATION: HEENT: Normocephalic and nontraumatic. Eyes, nose, ears, and throat are unremarkable. Neck is supple. No lymphadenopathy. No crepitus. Cardiovascular: S1, S2, regular rate and rhythm. Pulmonary: Clear to auscultation bilaterally. Abdomen: Bowel sounds are positive. Abdomen is soft, nontender, and nondistended. Extremities: No rash, lesions, or edema. No restriction of range of motion NEUROLOGICAL EXAMINATION: Alert Oriented to time, place and person. PERRL. EOMI. CN: no focal findings. Muscle tone: within normal. Muscle strength: 5, no weakness appreciated on exam. DTR: 2 Plantar reflex: Flexor response bilaterally Gait: not examined while in bed. Sensory exam: no abnormal findings. No cerebellar signs elicited. F-T-N test accurate. Objective Objective Vital Signs Date Time Temp Pulse Resp B/P (MAP) Pulse Ox O2 Delivery O2 Flow Rate FiO2 03/06/19 12:44 99 Room Air 03/06/19 11:02 98.6 83 20 116/63 (80) 98.6 Intake and Output 03/06/19 07:00 Intake Total 1640 ml Balance 1640 ml Intake Oral 1640 ml # Voids 1 Vitals Signs Vitals VS - Last 72 Hours, by Label Date Time Temp Pulse Resp B/P (MAP) Pulse Ox O2 Delivery O2 Flow Rate FiO2 03/06/19 12:44 99 Room Air 03/06/19 11:02 98.6 83 20 116/63 (80) 97 Room Air 98.6 03/06/19 09:15 99 Room Air 03/06/19 08:51 99 Room Air 03/06/19 08:51 77 102/60 03/06/19 08:00 Room Air 03/06/19 07:44 99 Room Air 03/06/19 07:15 98.3 77 18 102/60 (74) 98 Room Air 98.3 03/06/19 07:00 99 Room Air 03/06/19 03:15 97.7 75 17 124/82 (96) 97 Room Air 97.7 03/05/19 23:20 98.2 80 17 107/66 (80) 98 Room Air 98.2 03/05/19 20:06 98 Room Air 03/05/19 19:20 98.2 100 18 120/66 (84) 97 Room Air 98.2 03/05/19 15:12 95 Room Air 03/05/19 15:00 98.3 97 17 119/95 (103) 95 Room Air 98.3 03/05/19 13:16 Room Air 03/05/19 11:05 95 Room Air 03/05/19 09:06 93 117/71 (86) 03/05/19 09:04 93 117/71 03/05/19 09:00 Room Air 03/05/19 08:30 Room Air 03/05/19 07:19 95 Room Air 03/05/19 07:16 94 03/05/19 07:00 97.4 83 17 120/72 (88) 96 Room Air 97.4 Laboratory Laboratory Microbiology 03/04/19 Blood Culture - Preliminary, Resulted NO GROWTH AFTER 2 DAYS Medication Medications Current Medications Atorvastatin Calcium (Lipitor) 10 mg QHS PO Last administered on 03/05/19at 20:57; Start 03/05/19 at 21:00; Stop 03/06/19 at 14:23; Status DC Lactobacillus Rhamnosus (Culturelle) 1 cap BID PO Last administered on 03/06/19a t 08:50; Start 03/05/19 at 21:00; Stop 03/06/19 at 14:23; Status DC Comment Review of Relevant I have reviewed the following items chris (where applicable) has been applied. SUJATHA ALFREDO MD Mar 06, 2019 14:59
== END 2019-03-06 13:26 | disposition home or self-care (01) | DRG 871 ==
LOC: ER 10:35 → ED HOLD 16:38 → 6 SOUTH 19:09
PROVIDERS: ADMIT Internal Medicine; ATTEND Internal Medicine
DX: A41.9 Sepsis, unspecified organism (principal); G92 Toxic encephalopathy; J44.1 Chronic obstructive pulmonary disease with (acute) exacerbation; N39.0 Urinary tract infection, site not specified; J44.0 Chronic obstructive pulmonary disease with (acute) lower respiratory infection; J20.9 Acute bronchitis, unspecified; E78.00 Pure hypercholesterolemia, unspecified; E78.5 Hyperlipidemia, unspecified; F17.210 Nicotine dependence, cigarettes, uncomplicated; G89.29 Other chronic pain; I10 Essential (primary) hypertension; K74.60 Unspecified cirrhosis of liver; M06.9 Rheumatoid arthritis, unspecified; M17.0 Bilateral primary osteoarthritis of knee; M51.36 Other intervertebral disc degeneration, lumbar region; M70.61 Trochanteric bursitis, right hip; M70.62 Trochanteric bursitis, left hip; S16.1XXA Strain of muscle, fascia and tendon at neck level, initial encounter; Z79.82 Long term (current) use of aspirin; Z79.899 Other long term (current) drug therapy; Z82.49 Family history of ischemic heart disease and other diseases of the circulatory system; Z90.710 Acquired absence of both cervix and uterus; Z87.442 Personal history of urinary calculi; M19.90 Unspecified osteoarthritis, unspecified site
CPT/HCPCS: 36415; 70450; 70551; 71046; 80053; 80061; 80307; 81001; 83036; 83605; 84484; 85025; 85610; 85730; 87040; 87086; 87186; 93005; 93306; 93880; 94640; 96374; 96375; G0480; J0696; J2405; J2930; J3010; J7512; J7620; 92610; 97110; 97535; 99285-25; G0378

== ENCOUNTER 2019-04-28 17:01 | Emergency (ER) | payer SELFPAY ==
[~2019-04-28] VITALS: Ht 162.6 cm; Wt 75.7 kg
[~2019-04-28 17:01] MED LIST changes: +AMOX1TAB61 PO; +PRED-220 PO; +TRAM-48 PO; +guaiFENesin/CODEINE 100mg/10mg PO
[2019-04-28 17:21] VITALS: BP 144/65
[2019-04-28] MEDS ORDERED: IPRATRPIUM/ALBUTEROL 0.5/2.5MG 3 ML NEBU. NEB ONE (17:30)
[2019-04-28 18:07] LABS: INFLUENZA A PATIENT NEGATIVE (NEGATIVE); INFLUENZA B PATIENT NEGATIVE (NEGATIVE)
--- NOTE | 2019-04-28 18:07 | RAD ---
CHEST PA LATERAL History: Comparison: 03/04/2019. Cardiomediastinal silhouette is not enlarged. No evidence of pneumothorax, pleural effusion or consolidating infiltrate. Bones appear intact. IMPRESSION: No evidence of consolidating infiltrate. Electronically signed by: Christopher Goodwin MD (04/28/2019 6:04 PM) [facility]
--- NOTE | 2019-04-28 18:58 | PHYS DOC ---
Past Medical History Past Medical History: Arthritis, COPD, High Cholesterol, Hypertension, Kidney Stone, Other Additional Past Medical Histor: SPINAL STENOSIS Past Surgical History: Hysterectomy Additional Past Surgical Histo: hernia x 2, addenoidectomy Alcohol Use: Occasionally Drug Use: None Adult General Chief Complaint Chief Complaint: COUGH HPI HPI Patient is a 53 year old AA female room D Review of Systems Review of Systems Constitutional: Denies fever or chills [] Eyes: Denies change in visual acuity, redness, or eye pain [] HENT: Denies nasal congestion or sore throat [] Respiratory: Denies cough or shortness of breath [] Cardiovascular: No additional information not addressed in HPI [] GI: Denies abdominal pain, nausea, vomiting, bloody stools or diarrhea [] : Denies dysuria or hematuria [] Musculoskeletal: Denies back pain or joint pain [] Integument: Denies rash or skin lesions [] Neurologic: Denies headache, focal weakness or sensory changes [] Endocrine: Denies polyuria or polydipsia [] All other systems were reviewed and found to be within normal limits, except as documented in this note. Current Medications Current Medications Current Medications Medications (Trade) Dose Ordered Sig/Fifi Start Time Stop Time Status Last Admin Dose Admin Albuterol/ Ipratropium (Duoneb) 3 ml 1X ONCE 04/28/19 17:30 04/28/19 17:33 DC 04/28/19 17:53 3 ML Allergies Allergies Allergies Coded Allergies Type Severity Reaction Last Updated Verified egg Allergy Mild vomiting 02/25/18 Yes NSAIDS (Non-Steroidal Anti-Inflamma Adverse Reaction Mild stomach ache 03/05/19 Yes Physical Exam Physical Exam Constitutional: Well developed, well nourished, no acute distress, non-toxic appearance. [] HENT: Normocephalic, atraumatic, bilateral external ears normal, oropharynx moist, no oral exudates, nose normal. [] Eyes: PERRLA, EOMI, conjunctiva normal, no discharge. [] Neck: Normal range of motion, no tenderness, supple, no stridor. [] Cardiovascular:Heart rate regular rhythm, no murmur [] Lungs & Thorax: Bilateral breath sounds clear to auscultation [] Abdomen: Bowel sounds normal, soft, no tenderness, no masses, no pulsatile masses. [] Skin: Warm, dry, no erythema, no rash. [] Back: No tenderness, no CVA tenderness. [] Extremities: No tenderness, no cyanosis, no clubbing, ROM intact, no edema. [] Neurologic: Alert and oriented X 3, normal motor function, normal sensory function, no focal deficits noted. [] Psychologic: Affect normal, judgement normal, mood normal. [] Current Patient Data Vital Signs Vital Signs Date Time Temp Pulse Resp B/P (MAP) Pulse Ox O2 Delivery O2 Flow Rate FiO2 04/28/19 17:53 97 Room Air 04/28/19 17:21 98.5 110 16 144/65 (91) 98.5 Lab Values Laboratory Tests Test 04/28/19 17:43 Influenza Type A Antigen Negative (NEGATIVE) Influenza Type B Antigen Negative (NEGATIVE) EKG EKG [] Radiology/Procedures Radiology/Procedures PROCEDURE: CHEST PA & LATERAL CHEST PA LATERAL History: Comparison: 03/04/2019. Cardiomediastinal silhouette is not enlarged. No evidence of pneumothorax, pleural effusion or consolidating infiltrate. Bones appear intact. IMPRESSION: No evidence of consolidating infiltrate.[] Course & Med Decision Making Course & Med Decision Making Pertinent Labs and Imaging studies reviewed. (See chart for details) [] Dragon Disclaimer Dragon Disclaimer This electronic medical record was generated, in whole or in part, using a voice recognition dictation system. Departure Departure Impression: Primary Impression: Cough Disposition: 01 HOME, SELF-CARE Condition: STABLE Referrals: LUCIO REDMOND (PCP) Patient Instructions: Cough, Adult, [id number], Upper Respiratory Infection, Adult, [id number] Additional Instructions: Fill prescription(s) and use as directed. Recommend use of a Cool mist humidifier in room at bedtime. Alternate Tylenol or ibuprofen as needed for pain/fever. Increase clear fluids. Avoid airway triggers such as smoke, fragrance, dust, and pollen. May take [id number] cough suppressants as needed. Follow-up with your primary care doctor if symptoms persist, return to the ER if symptoms worsen. Scripts Benzonatate (TESSALON PERLE) 100 Mg Capsule 1 CAP PO TID PRN for COUGH for 7 Days, #21 CAP 0 Refills Prov: JUDITH DUNN APRN 04/28/19 Prednisone (PREDNISONE) 50 Mg Tablet 1 TAB PO DAILY for 5 Days, #5 TAB 0 Refills Prov: JUDITH DUNN APRN 04/28/19 Azithromycin (AZITHROMYCIN TABLET) 250 Mg Tablet 1 PKG PO UD for 5 Days, #6 TAB 0 Refills 2 the first day followed by 1 for days 2-5 Prov: JUDITH DUNN APRN 04/28/19 JUDITH DUNN APRN Apr 28, 2019 18:58
[2019-04-28] MEDS ORDERED: AZIT250T6 PO (19:01)
[2019-04-28] MEDS ORDERED: PRED50TA PO (19:01)
[2019-04-28] MEDS ORDERED: BENZ100C PO (19:01)
== END 2019-04-28 19:10 | disposition home or self-care (01) ==
LOC: ER 17:01
DX: R05 Cough (principal); R50.9 Fever, unspecified; R51 Headache; M19.90 Unspecified osteoarthritis, unspecified site; J44.9 Chronic obstructive pulmonary disease, unspecified; E78.00 Pure hypercholesterolemia, unspecified; I10 Essential (primary) hypertension; Z87.442 Personal history of urinary calculi; Z90.710 Acquired absence of both cervix and uterus; Z90.89 Acquired absence of other organs; Z98.890 Other specified postprocedural states; Z91.012 Allergy to eggs; Z88.6 Allergy status to analgesic agent
CPT/HCPCS: 71046; 87804; 94640; 99285; J7620